=== PATIENT | male | born 1965 | race Caucasian/White ===

== ENCOUNTER 2016-12-19 09:26 | Inpatient (IN) | payer BC, OTHER ==
[2016-11-23 09:59] VITALS: BMI 28.0
--- NOTE | 2016-12-18 12:09 | HISTORY & PHYSICAL EXAMINATION ---
DATE OF ADMISSION: 12/19/2016 The patient presents to our office with a complaint of back pain, as well as numbness and tingling into the left leg. He has trialed epidural injections with very little relief. He is having a difficult time standing and walking. Denies bowel or bladder dysfunction. PAST MEDICAL HISTORY: The patient's medical history is significant for GERD, arthritis, migraines, gallbladder disease, shortness of breath. SURGICAL HISTORY: Significant for cholecystectomy. ALLERGIES: None. MEDICATIONS: Not listed. SOCIAL HISTORY: He is . Alcohol not listed. He smokes a pack a day x30 years of cigarettes. 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 FAMILY HISTORY: Significant for cancer, diabetes, hypertension, high cholesterol, stroke. REVIEW OF SYSTEMS: Significant for headache, hearing loss, difficulty walking, muscle weakness and heartburn. PHYSICAL EXAMINATION: VITAL SIGNS: 5 feet, 9, 190 pounds. HEENT: Speech appropriate. CARDIOPULMONARY: No gross abnormalities. ABDOMEN: Soft, nondistended. GENITOURINARY: Deferred. NEUROLOGIC: Cranial nerves II-XII grossly intact. MUSCULOSKELETAL: He moves easily around the room. He has weakness on the left side with a 3+/5 along the anterior tibialis. He has positive tension sign on the left. Otherwise, neurovascularly intact. ASSESSMENT: Spinal stenosis of L4-5, L5-S1 with disc deterioration of L3-4 as well. He has failed conservative therapy and may consider surgical intervention. Surgery would require lumbar decompression L4-5, L5-S1 with instrumented fusion L3-S1. Risks, benefits, pros, cons, and alternatives were outlined in detail. The patient would like to proceed with the above-mentioned surgical planning.
[2016-12-19] VITALS (7 sets, daily range): BP systolic 152–168; BP diastolic 88–99; PULSE 84–104; TEMP 36.2–36.9; O2SAT 95–99; Ht 175.3 cm; Wt 88.5 kg
[~2016-12-19] VITALS: Ht 175.3 cm; Wt 88.5 kg
--- NOTE | 2016-12-19 07:25 | History & Physical Bridge Note ---
H&P Re-Evaluation Bridge Note: I have examined the patient, reviewed the History & Physical and in the interval since the performance of the History & Physical I have noted the following changes of clinical significance: No changes noted
[~2016-12-19 09:26] MED LIST: CALC500C3 PO; CEFAZOLIN 2000 MG/60 ML D5W IV SCH; IBUP-1050 PO
[2016-12-19] MEDS ORDERED: NURSING VERBAL MED ORDER ONE ×3 (10:15→19:00)
[2016-12-19] MEDS ORDERED: FENTANYL CITRATE INJ 50 MCG/1 ML 2 ML VIAL ONE (10:30)
[2016-12-19] MEDS ORDERED: MIDAZOLAM HCL 1 MG/ML 2ML VIAL ONE (10:30)
[2016-12-19] MEDS ORDERED: FLUMAZENIL 0.1 MG/1 ML 10 ML VIAL IV PRN (11:00)
[2016-12-19] MEDS ORDERED: EpHEDrine SULFATE INJ 50 MG/ML AMP IV PRN (11:00)
[2016-12-19] MEDS ORDERED: ATROPINE SULFATE 0.1 MG/ML 5ML SYR IV PRN (11:00)
[2016-12-19] MEDS ORDERED: PHENYLEPHRINE 100MCG/ML 5ML SYR IV PRN (11:00)
[2016-12-19] MEDS ORDERED: NALOXONE HCL 0.4 MG/1 ML VIAL/CARP IV PRN ×3 (11:00→13:30)
[2016-12-19] MEDS ORDERED: ONDANSETRON INJ 2 MG/ML 2 ML VIAL IV PRN ×2 (11:00→13:30)
[2016-12-19] MEDS ORDERED: MoRPHine SULFATE 10 MG/ML CARP/VIAL IV PRN (11:00)
[2016-12-19] MEDS ORDERED: MEPERIDINE HCL 25 MG/ML CARP IV PRN (11:00)
[2016-12-19] MEDS ORDERED: LARYING-O-JET KIT (LTA) EXT ONE ×2 (11:44)
[2016-12-19] MEDS ORDERED: ONDANSETRON INJ 2 MG/ML 2 ML VIAL ONE (11:44)
[2016-12-19] MEDS ORDERED: NEOSTIGMINE METHYLSULFATE 1 MG/ML 10ML VIAL ONE (11:44)
[2016-12-19] MEDS ORDERED: LIDOCAINE HCL 2% 2 ML VIAL (20MG/ML) ONE (11:44)
[2016-12-19] MEDS ORDERED: DEXAMETHASONE SOD INJ 4 MG/ML VIAL ONE (11:44)
[2016-12-19] MEDS ORDERED: PROPOFOL IV EMULSION 10 MG/ML 20 ML VIAL IV ONE (11:44)
[2016-12-19] MEDS ORDERED: GLYCOPYRROLATE INJ 0.2 MG/ML VIAL ONE (11:44)
[2016-12-19] MEDS ORDERED: ROCURONIUM BROMIDE 10 MG/ML 5 ML VIAL ONE (11:44)
[2016-12-19] MEDS ORDERED: HYDROmorphone INJ 2 MG/ML SYR/VIAL ONE (11:45)
[2016-12-19] MEDS ORDERED: EpHEDrine SULFATE 50MG/5ML SYR ONE (11:51)
[2016-12-19] MEDS ORDERED: PHENYLEPHRINE 100MCG/ML 5ML SYR ONE (11:51)
[2016-12-19] MEDS ORDERED: BACITRACIN 50000 UNIT VIAL IR ONE (13:16)
[2016-12-19] MEDS ORDERED: BUPIVACAINE/EPINEPHRINE 0.5% MPF 1:200,000 30 ML VIAL INJ ONE (13:16)
[2016-12-19] MEDS ORDERED: FLOSEAL HEMOSTATIC MATRIX 10ML TOP ONE (13:16)
[2016-12-19] MEDS ORDERED: SODIUM CHLORIDE 0.9% 1000ML 1,000 ML IV SCH (13:26)
--- NOTE | 2016-12-19 13:26 | [facility] Operative Report ---
Operative Report Operative Date Dec 19, 2016. Pre-Operative Diagnosis Spinal stenosis of L4-5, L5-S1 with disc deterioration of L3-L4 as well. Surgeon Dr. Elkin Conway Air Quality Instrument Specialist Surgeon(s) Gayla Agudelo PA-C Estimated Blood Loss 190mL Findings stenosis Specimens None per surgeon I attest to the content of the Intraoperative Record and any orders documented therein. Any exceptions are noted below.
[2016-12-19] MEDS ORDERED: DO NOT ADMINISTER PNEUMOCOCCAL VACCINE PRN ×2 (13:30)
[2016-12-19] MEDS ORDERED: MAGNESIUM HYDROXIDE SUSP 30 ML UDC PO PRN (13:30)
[2016-12-19] MEDS ORDERED: ALUMINUM/MAGNESIUM SUSP 30 ML UDC PO PRN (13:30)
[2016-12-19] MEDS ORDERED: FAMOTIDINE 20 MG TAB PO PRN (13:30)
[2016-12-19] MEDS ORDERED: CALCIUM CARBONATE 500 MG CHEWABLE PO PRN (13:30)
[2016-12-19] MEDS ORDERED: HYDROmorphone HCL 0.5MG/ML 50 ML CASSETTE IV PRN (13:30)
[2016-12-19] MEDS ORDERED: hydrOXYzine HCL 25 MG TAB PO PRN (13:30)
[2016-12-19] MEDS ORDERED: METOCLOPRAMIDE HCL INJ 5 MG/ML 2 ML VIAL IV PRN (13:30)
[2016-12-19] MEDS ORDERED: DO NOT ADMINISTER FLU VACCINE PRN ×3 (13:30)
[2016-12-19] MEDS ORDERED: SOD PHOSPHATE/SOD BIPHOSPHATE ENEMA 132 ML BTL PR PRN (13:30)
[2016-12-19] MEDS ORDERED: LORAZEPAM 0.5 MG TAB PO PRN (13:30)
[2016-12-19] MEDS ORDERED: ACETAMINOPHEN IV 100 ML IV PRN (13:30)
[2016-12-19] MEDS ORDERED: PROMETHAZINE HCL INJ 12.5 MG in SODIUM CHLORIDE 0.9% 50ML 50 ML IV PRN (13:30)
[2016-12-19] MEDS ORDERED: LORAZEPAM INJ 0.5 MG in SYRINGE 0 ML IV PRN (13:30)
[2016-12-19] MEDS ORDERED: ACETAMINOPHEN 500 MG TAB PO PRN (13:30)
[2016-12-19] MEDS ORDERED: BISACODYL 10 MG SUPP PR PRN (13:30)
--- NOTE | 2016-12-19 13:42 | DIAGNOSTIC IMAGING REPORT ---
INTRAOPERATIVE FLUOROSCOPIC IMAGES OF THE LUMBAR SPINE CLINICAL HISTORY: L3-S1 DECOMPRESSION/FUSION/INTERBODY COMPARISON STUDY: No previous studies for comparison. Fluoroscopy time: 21 seconds. FINDINGS: 2 fluoroscopic images demonstrate an L5-S1 discectomy with interbody spacer placement. There are bilateral pedicle screws at the L3, L4, L5 and S1 levels. There are interconnecting rods. Hardware is intact. IMPRESSION: Fluoroscopic images demonstrating L5-S1 discectomy and L3-S1 bilateral pedicle screw fusion. Electronically signed by: Raji Garcia M.D. 12/19/2016 1:40 PM Dictated Date/Time: 12/19/2016 1:39 PM
[2016-12-19] MEDS ORDERED: HYDROmorphone HCL 0.5MG/ML 50 ML CASSETTE ONE (13:51)
[2016-12-19] MEDS: HYDROmorphone INJ 1 MG/ML SYR IV PRN ×4 (13:54→14:34)
--- NOTE | 2016-12-19 14:05 | OPERATIVE REPORT ---
DATE OF OPERATION: 12/19/2016 PREOPERATIVE DIAGNOSIS: Spinal stenosis. POSTOPERATIVE DIAGNOSIS: Same. PROCEDURES PERFORMED: 1. Lumbar decompression, medial facetectomy, and foraminotomy L3-L4, L4-L5, L5-S1. 2. Posterior spinal fusion L3-L4, L4-L5, L5-S1. 3. Placement posterior segmental instrumentation using Orthros rods and screws L3-L4, L4-L5, L5-S1. 4. Interbody fusion L5-S1. 5. Placement of PEEK cage 12 x 26 mm at L5-S1. 6. Placement of locally harvested morselized autograft posterior gutters. 7. Placement of Infuse collagen sponge combined with Mastergraft in the posterior gutters and Liane bone grafting interbody space. SURGEON: Dr. Elkin Conway. MANAGER SITE: Gayla Isidro PA-C. Due to the complex nature of the procedure, the entire surgery was performed with the operator assistant i cementing of LUIS Williamson.? The judicial assistant, under direct supervision, was involved in the actual performance of all aspects of the surgical procedure including hemostasis, tissue retraction and incision, instrument management, patient positioning, and wound closure. ANESTHESIA: General. DISPOSITION: The patient awakened and taken to PACU in stable condition. HISTORY OF PATIENT'S PROBLEMS: This is a 51-year-old male who presents with above-mentioned diagnosis. After failing an extensive course of nonoperative care, elected to undergo the above-mentioned procedure. Risks, benefits, pros, cons, and alternatives were outlined in detail preoperatively. DESCRIPTION OF PROCEDURE: The patient was met with preoperatively, the case discussed and all questions were addressed. At that point the patient was taken back to operative suite and after undergoing successful general intubation by the department of anesthesia was placed in prone position on Luis table atop Galdino frame. All bony prominences were well padded and the eyes were inspected to ensure there was no external pressure placed upon them. At this point, lumbar spine was prepped and draped in normal sterile fashion. Sharp dissection with the assistance of Bovie cautery performed down to and exposing the lamina and transverse processes of L2, L3, L4, L5 and sacral ala bilaterally. From a caudal to cephalad fashion, complete laminectomy of L5, L4, and L3 was performed addressing severe lateral recess foraminal stenosis particularly at the L5-S1 level. Pedicle screws then placed in L3, L4, L5 and S1 levels bilaterally with assistance of fluoroscopy and appropriate size warner provisionally placed. Through transforaminal approach on the left, a complete discectomy of L5-S1 was performed, endplates curetted to subcortical bleeding bone and a 12 x 26 mm PEEK cage filled with Liane bone grafting tapped into position. The rods were then locked into final position bilaterally and transverse processes of L3, L4, L5 and sacral ala burred to subcortical bleeding bone. Infuse collagen sponge combined with Mastergraft locally harvested morselized autograft was placed in the posterior gutters. A crosslink locked into position, 7 flat LUNA drain inserted and incision closed with 1-0 Vicryl in the fascia, 2-0 Vicryl subcutaneously, 4-0 Monocryl for final skin closure. Steri-Strips and sterile dressing placed. The patient was awakened and taken to PACU. I attest to the content of the Intraoperative Record and any orders documented therein. Any exceptio ns are noted below.
[2016-12-19] MEDS: LABETALOL HCL IV 5 MG/ML 20ML IV PRN ×3 (14:13→15:00)
[2016-12-19] MEDS ORDERED: METOPROLOL TARTRATE 1 MG/ML VIAL ONE (14:19)
--- NOTE | 2016-12-19 14:22 | Anesthesiology Progress Note ---
Anesthesia Post Op Note Date & Time Dec 19, 2016 at 14:22 Vital Signs Pain Intensity: 8 Vital Signs Past 12 Hours Date Time Temp Pulse Resp B/P Pulse Ox O2 Delivery O2 Flow Rate FiO2 12/19/16 14:11 101 14 95 12/19/16 14:11 99 14 12/19/16 14:09 178/86 12/19/16 14:06 107 17 176/93 97 12/19/16 14:06 108 17 12/19/16 14:01 105 26 12/19/16 14:01 106 26 100 12/19/16 13:58 155/96 12/19/16 13:56 105 21 12/19/16 13:56 103 21 100 12/19/16 13:53 147/95 12/19/16 13:51 106 14 12/19/16 13:51 105 14 100 12/19/16 13:48 155/104 12/19/16 13:46 112 23 99 12/19/16 13:46 115 23 12/19/16 13:43 150/88 12/19/16 13:41 96 12 100 12/19/16 13:41 96 12 12/19/16 13:41 37.2 86 14 160/93 100 Mask 10 12/19/16 09:54 36.6 84 20 168/98 97 Room Air Notes Mental Status: alert / awake / arousable, participated in evaluation Pt Amnestic to Procedure: Yes Nausea / Vomiting: adequately controlled Pain: adequately controlled Airway Patency, RR, SpO2: stable & adequate BP & HR: stable & adequate Hydration State: stable & adequate Anesthetic Complications: no major complications apparent
[2016-12-19] MEDS ORDERED: METOPROLOL TARTRATE 1 MG/ML VIAL IV STA (14:23)
--- NOTE | 2016-12-19 14:33 | Anesthesiology Progress Note ---
Anesthesia Post Op Note Date & Time Dec 19, 2016 at 14:33 Vital Signs Pain Intensity: 3 Vital Signs Past 12 Hours Date Time Temp Pulse Resp B/P Pulse Ox O2 Delivery O2 Flow Rate FiO2 12/19/16 14:25 85 160/94 12/19/16 14:23 160/94 12/19/16 14:22 79 16 12/19/16 14:22 79 16 95 12/19/16 14:17 94 22 12/19/16 14:17 93 22 95 12/19/16 14:13 167/92 12/19/16 14:12 95 16 96 12/19/16 14:12 95 16 12/19/16 14:11 101 14 95 12/19/16 14:11 99 14 12/19/16 14:09 178/86 12/19/16 14:06 107 17 176/93 97 12/19/16 14:06 108 17 12/19/16 14:01 105 26 12/19/16 14:01 106 26 100 12/19/16 13:58 155/96 12/19/16 13:56 105 21 12/19/16 13:56 103 21 100 12/19/16 13:53 147/95 12/19/16 13:51 106 14 12/19/16 13:51 105 14 100 12/19/16 13:48 155/104 12/19/16 13:46 112 23 99 12/19/16 13:46 115 23 12/19/16 13:43 150/88 12/19/16 13:41 96 12 100 12/19/16 13:41 96 12 12/19/16 13:41 37.2 86 14 160/93 100 Mask 10 12/19/16 09:54 36.6 84 20 168/98 97 Room Air Notes Mental Status: alert / awake / arousable, participated in evaluation Pt Amnestic to Procedure: Yes Nausea / Vomiting: adequately controlled Pain: adequately controlled Airway Patency, RR, SpO2: stable & adequate BP & HR: stable & adequate Hydration State: stable & adequate Anesthetic Complications: no major complications apparent
[2016-12-19] MEDS ORDERED: LABETALOL HCL IV 5 MG/ML 20ML IV ONE (16:00)
[2016-12-19] MEDS: LACTATED RINGER'S 1000ML 1,000 ML IV SCH ×2 (16:12→22:44)
[2016-12-19] MEDS ORDERED: HydrALAZINE HCL 20 MG/ML VIAL IV. PRN (19:15)
[2016-12-19] MEDS: DOCUSATE SODIUM/SENNA 50/8.6MG TAB PO SCH (19:58)
[2016-12-19] MEDS: CEFAZOLIN IV 2,000 MG in DEXTROSE 5% 50ML 50 ML IV SCH (19:58)
[2016-12-19] MEDS: DEXAMETHASONE INJ 6 MG in SYRINGE 0 ML IV SCH (19:58)
[2016-12-20] VITALS (7 sets, daily range): BP systolic 112–160; BP diastolic 67–85; PULSE 79–99; TEMP 36.6–36.7; O2SAT 93–98
[2016-12-20] MEDS: DEXAMETHASONE INJ 6 MG in SYRINGE 0 ML IV SCH ×2 (04:00→12:06)
[2016-12-20] MEDS: CEFAZOLIN IV 2,000 MG in DEXTROSE 5% 50ML 50 ML IV SCH (04:00)
[2016-12-20] MEDS: LACTATED RINGER'S 1000ML 1,000 ML IV SCH (04:49)
[2016-12-20] MEDS ORDERED: DC PCA SCH (06:00)
[2016-12-20] MEDS ORDERED: HYDROmorphone INJ 1 MG/ML SYR IV PRN (06:00)
[2016-12-20 06:57] LABS: COMPLETE YES; EOS % 0.1 %; HEMATOCRIT 37.9 % (42-52); IG% 0.3 %; LYMPH % 7.2 %; LYMPH ABS # 1.16 K/uL (1.2-3.4); MEAN CELL VOLUME 92.2 fL (80-100); MEAN CORPUSCULAR HEMOGLOBIN 31.6 pg (25-34); MEAN CORPUSCULAR HGB CONC 34.3 g/dl (32-36); MEAN PLATELET VOLUME 10.9 fL (7.4-10.4); NEUT % 84.4 %; PLATELET COUNT 203 K/uL (130-400); RED BLOOD COUNT 4.11 M/uL (4.7-6.1); WHITE BLOOD COUNT 16.05 K/uL (4.8-10.8)
[2016-12-20 07:26] LABS: CALCIUM 8.4 mg/dl (8.5-10.1); CREATININE 0.99 mg/dl (0.60-1.40); POTASSIUM 4.1 mmol/L (3.5-5.1)
[2016-12-20] MEDS: NICOTINE 21 MG/24 HR TDSY TD SCH (09:33)
[2016-12-20] MEDS ORDERED: RXC5 PO (09:55)
--- NOTE | 2016-12-20 09:56 | Discharge Instructions ---
Discharge Instructions Admission Reason for Admission: Discharge Discharge Diagnosis / Problem: stenosis Discharge Goals Goal(s): Improve function Activity Recommendations Activity Limitations: per Instructions/Follow-up section . Instructions / Follow-Up Instructions / Follow-Up ACTIVITY RECOMMENDATIONS: SELF CARE INSTRUCTIONS AFTER THORACIC/LUMBAR FUSIONS 1. You may walk to your tolerance. It is good exercise for your legs and back. Expect some back and intermittent leg aches and pains. 2. You may perform "counter-top" level activities (make a sandwich, kyung with a project, etc.). 3. No bending or lifting of more than 10 pounds or back twisting of any nature (roll like a log when turning in bed). 4. You may ride in a car for 20-30 minutes at a time. No driving until after your first visit with your doctor. 5. Frequent changes of position and restricting sitting to 30 minutes at a time will help limit the amount of back spasms and stiffness you may experience. 6. You may discontinue the use of ambulatory aids (cane, crutches, etc.) once your strength and confidence allow. 7. You may order entry administrator the shower and let water strike your incision when you arrive home at least once daily. Do not take a tub bath, sit in a hot tub or go into a swimming pool until after your first recheck in the office. SPECIAL CARE INSTRUCTIONS: VERY IMPORTANT TO READ AND REVIEW A. Your surgical incision has been closed with a cosmetic suture under the skin that will dissolve in about 6 weeks. In 14 days, you can use a pair of clean scissors and cut the suture that is left outside of the skin at the ends of your incision. 1. The small skin tapes can be removed 7 days after surgery if they have not fallen off by that point. 2. You may keep the wound open to air as much as possible to promote healing after post-op day number 5 unless told otherwise by your doctor. 3. If you think the wound looks like it is becoming infected (redness or worsening drainage) and/or you are experiencing fever, chill or worsening back pain and muscle spasms, contact the office so that we may evaluate you as soon as possible. B. Complications are uncommon, but please contact us if you have any signs or symptoms of: 1. wound infection (fever higher than 102.5 degrees F, redness, separation of wound, drainage, or increasing pain from the incision) 2. blood clots in legs (pain, swelling, redness and warmth in legs) 3. urinary tract infection (fever higher than 102.5 degrees F, burning upon urination or increased frequency of urination) 4. nerve problems (inability to walk on your toes or heels, numbness, loss of bowel or bladder control) 5. any other symptoms that concern you C. Please call the office at if you have any concerns or questions about your operation or recovery. D. No smoking! Smoking drastically decreases the chance of a solid fusion. E. Do not take any anti-inflammatory medications (Indocin, Advil, Motrin, Aspirin, Naprosyn, etc.) as these may inhibit the chance of a solid fusion. Tylenol is okay to take for pain. MANAGING PAIN AFTER SPINAL SURGERY 1. Narcotic medication is intended for short-term use and will be provided for surgical pain. Surgical pain usually lasts for a period of 4-6 weeks. Narcotic medication includes Percocet, Vicodin, Darvocet, Tylenol #3 or Lortab. 2. Longer-term pain is more appropriately treated with non-narcotic medication such as Tylenol ES. 3. Muscle spasm is not appropriately treated with narcotics. Muscle relaxers such as Soma, Flexeril or Skelaxin can be used along with Tylenol ES. 4. Remember that we all live with some "aches and pains". This is not unusual or uncommon after an injury or as we get older. a. Back pain is expected and may include muscle spasms for 4 to 6 weeks after surgery. The pain should gradually improve. If the pain worsens for no apparent reason, please contact the office. b. Intermittent leg pain may also be experienced and should not be concerned about unless it worsens for no apparent reason. If so, please contact the office. 5. We will provide appropriate medication within the normal guidelines of their prescribed use. We will also be very cautious and aware of potential abuse and extended duration of patients' medication needs. a. Pain medications are for your comfort and to assist with sleep and rest so that the tissue can heal. They are not provided in order to return to normal activity and should not be used through the day. To do so or worsening pain at night can result from ongoing tissue damage and development of tolerance to the prescribed medicine. 6. Please allow 2-3 days to process refills. Prescriptions will not be mailed but must be picked up at the office. FOLLOW UP VISIT: Keep your scheduled follow-up appointment. Any questions, please call the office at . Current Hospital Diet Patient's current hospital diet: Regular Diet Discharge Diet Recommended Diet: Regular Diet Procedures Procedures Performed: L3-S1 Decompression; Posterior Spinal Fusion, Instrumentation; Interbody Fusion with Application of Interbody Cage at L5-S1 and Bone Morphogenetic Protein with Liane Pending Studies Studies pending at discharge: no Medical Emergencies . Who to Call and When: Medical Emergencies: If at any time you feel your situation is an emergency, please call 911 immediately. . Non-Emergent Contact Non-Emergency issues call your: Primary Care Provider . "Provider Documentation" section prepared by Elkin Conway. VTE Core Measure Inpt VTE Proph given/why not?: Sachin Mo, [facility]
[2016-12-20] MEDS ORDERED: KETOROLAC TROMETHAMINE 30 MG/ML VIAL IV PRN (10:00)
--- NOTE | 2016-12-20 10:36 | Anesthesiology Progress Note ---
Anesthesia Post Op Note Date & Time Dec 20, 2016 at 10:36 Vital Signs Pain Intensity: 6.0 Vital Signs Past 12 Hours Date Time Temp Pulse Resp B/P Pulse Ox O2 Delivery O2 Flow Rate FiO2 12/20/16 09:01 94 Room Air 12/20/16 08:06 36.7 80 16 139/81 94 Room Air 12/20/16 07:30 Room Air 12/20/16 04:26 36.7 98 18 142/85 93 Room Air 12/20/16 00:22 137/79 12/19/16 22:55 36.8 104 18 161/92 98 Nasal Cannula 4.0 Notes Mental Status: alert / awake / arousable, participated in evaluation Pt Amnestic to Procedure: Yes Nausea / Vomiting: adequately controlled Pain: adequately controlled Airway Patency, RR, SpO2: stable & adequate BP & HR: stable & adequate Hydration State: stable & adequate Anesthetic Complications: no major complications apparent
[2016-12-20] MEDS ORDERED: NURSING VERBAL MED ORDER ONE (12:00)
[2016-12-20] MEDS: OXYCODONE HCL IR 5 MG TAB (IMMEDIATE RELEASE) PO PRN ×2 (12:33→16:40)
--- NOTE | 2016-12-20 12:39 | PROGRESS NOTE ---
DATE: 12/20/2016 Postop day 1. Back pain controlled. Leg pain improved. Vital signs stable. T-max 36.7. LUNA drained 120 mL. Hematocrit this a.m. is 37.9. On exam, the patient is comfortable, has good strength to testing. ASSESSMENT: Status post lumbar decompression and fusion. PLAN: At this time, will continue physical therapy, anticipate possible home tomorrow.
[2016-12-20] MEDS: DOCUSATE SODIUM/SENNA 50/8.6MG TAB PO SCH (21:30)
[2016-12-21] VITALS: O2SAT 94
[2016-12-21] MEDS ORDERED: POLYETHYLENE (MIRALAX) 17 GM PACK PO SCH (06:00)
[2016-12-21 06:30] VITALS: BP 153/84; PULSE 93; TEMP 36.8; O2SAT 97
[2016-12-21] MEDS: NICOTINE 21 MG/24 HR TDSY TD SCH (07:44)
[2016-12-21 09:10] VITALS: BP 153/84; PULSE 93; TEMP 36.8; O2SAT 97
[2016-12-21] MEDS: OXYCODONE HCL IR 5 MG TAB (IMMEDIATE RELEASE) PO PRN (09:18)
--- NOTE | 2016-12-21 14:19 | DISCHARGE SUMMARY ---
PRINCIPAL DIAGNOSIS: Spinal stenosis. HOSPITAL COURSE FOLLOWS: On 12/19/2016 the patient underwent multilevel lumbar decompression and fusion, tolerated this well and taken to the orthopedic floor postoperatively. Postop day #1, he was up and ambulatory progressing appropriately. Progressed to postoperative day #2. Subsequently discharged home. Discharge orders and instructions can be found on the chart for further review.
== END 2016-12-21 10:02 | disposition home health service (06) | DRG 460 ==
LOC: ENRESERVTM → ENRESERVDT → C.ACU 09:26 → C.3E 11:00
PROVIDERS: ADMIT Orthopaedic Surgery Orthopaedic Surgery of the Spine; ATTEND Orthopaedic Surgery Orthopaedic Surgery of the Spine
PROC: 3E0U0GB Introduction of Recombinant Bone Morphogenetic Protein into Joints, Open Approach (ICD-10-PCS; principal; 2016-12-19 11:40)
PROC: 0ST40ZZ Resection of Lumbosacral Disc, Open Approach (ICD-10-PCS; principal; 2016-12-19 11:40)
PROC: 0SG1071 Fusion of 2 or more Lumbar Vertebral Joints with Autologous Tissue Substitute, Posterior Approach, Posterior Column, Open Approach (ICD-10-PCS; principal; 2016-12-19 11:40)
PROC: 0SG30AJ Fusion of Lumbosacral Joint with Interbody Fusion Device, Posterior Approach, Anterior Column, Open Approach (ICD-10-PCS; principal; 2016-12-19 11:40)
PROC: 0SG3071 Fusion of Lumbosacral Joint with Autologous Tissue Substitute, Posterior Approach, Posterior Column, Open Approach (ICD-10-PCS; principal; 2016-12-19 11:40)
DX: M48.06 Spinal stenosis, lumbar region (principal); M48.07 Spinal stenosis, lumbosacral region; M51.36 Other intervertebral disc degeneration, lumbar region; F17.210 Nicotine dependence, cigarettes, uncomplicated; M19.90 Unspecified osteoarthritis, unspecified site

== ENCOUNTER 2018-01-21 05:28 | Day surgery (SDC) | payer OTHER ==
--- NOTE | 2018-01-08 14:07 | PAT Medication Instructions ---
Service Date Jan 08, 2018. Current Home Medication List Calcium Carbonate (Tums), 2 TAB PO PRN Tramadol (Ultram), 50 MG PO Q6H Medication Instructions For Your Scheduled Surgery - Hold the following medications the morning of surgery: Calcium Carbonate (Tums), 2 TAB PO PRN - Take the following medications the morning of surgery with a sip of water: Tramadol (Ultram), 50 MG PO Q6H (if needed, can be taken up to four hours before surgery) - Take the following medications as scheduled the night before surgery: Calcium Carbonate (Tums), 2 TAB PO PRN If you have any questions please call us at [phone] or [phone] or [phone]
[2018-01-08 14:40] LABS: BASO % 0.5 %; BASO ABS # 0.03 K/uL (0-0.2); EOS % 2.2 %; EOS ABS # 0.14 K/uL (0-0.5); HEMATOCRIT 44.7 % (42-52); HEMOGLOBIN 16.3 g/dL (14.0-18.0); IG# 0.01 K/uL (0.00-0.02); LYMPH % 47.4 %; LYMPH ABS # 2.96 K/uL (1.2-3.4); MEAN CELL VOLUME 91.4 fL (80-100); MEAN CORPUSCULAR HEMOGLOBIN 33.3 pg (25-34); MEAN CORPUSCULAR HGB CONC 36.5 g/dl (32-36); MEAN PLATELET VOLUME 10.9 fL (7.4-10.4); MONO % 9.1 %; MONO ABS # 0.57 K/uL (0.11-0.59); NEUT % 40.6 %; NEUT ABS # 2.53 K/uL (1.4-6.5); PLATELET COUNT 169 K/uL (130-400); RED CELL DISTRIBUTION WIDTH CV 13.7 % (11.5-14.5); RED CELL DISTRIBUTION WIDTH SD 45.6 fL (36.4-46.3); WHITE BLOOD COUNT 6.24 K/uL (4.8-10.8)
--- NOTE | 2018-01-08 15:25 | DIAGNOSTIC IMAGING REPORT ---
CHEST 2 VIEWS ROUTINE CLINICAL HISTORY: 52 years-old Male presenting with lumbar postlaminectomy syndrome, preoperative assessment. TECHNIQUE: PA and lateral views of the chest were obtained. COMPARISON: None. FINDINGS: Atherosclerosis of the aortic arch. Cardiac silhouette normal in size. Mild bronchial wall thickening may be present. Lungs and pleural spaces otherwise clear. Degenerative changes of the thoracic spine. Upper abdomen normal. IMPRESSION: 1. Mild bronchial wall thickening could suggest bronchitis or congestive change. Otherwise no acute cardiopulmonary disease. Electronically signed by: Paulino Mcdaniels M.D. 01/08/2018 3:24 PM Dictated Date/Time: 01/08/2018 3:23 PM
[~2018-01-21] VITALS: Ht 175.3 cm; Wt 92.4 kg
[~2018-01-21 05:28] MED LIST changes: -CEFAZOLIN 2000 MG/60 ML D5W IV SCH; -IBUP-1050 PO; +TRAM-10 PO
[2018-01-21 05:42] VITALS: BP 153/91; PULSE 88; TEMP 36.6; O2SAT 97; Ht 175.3 cm; Wt 92.4 kg
[2018-01-21] MEDS ORDERED: LACTATED RINGER'S 1000ML 1,000 ML IV SCH (06:00)
[2018-01-21] MEDS ORDERED: CEFAZOLIN 2000MG IV PUSH 15 ML IV SCH (06:00)
[2018-01-21] MEDS ORDERED: MIDAZOLAM HCL 1 MG/ML 2ML VIAL ONE (06:43)
[2018-01-21] MEDS ORDERED: FENTANYL CITRATE INJ 50 MCG/1 ML 2 ML VIAL ONE ×2 (06:43→07:47)
[2018-01-21] MEDS: BACITRACIN 50000 UNIT VIAL ONE (06:56)
[2018-01-21] MEDS ORDERED: BUPIVACAINE/EPINEPHRINE 0.5% MPF 1:200,000 30 ML VIAL ONE (06:56)
--- NOTE | 2018-01-21 07:31 | History and Physical ---
History & Physical Date Jan 21, 2018. Chief Complaint Chronic back and leg pain History of Present Illness The patient is a 52 year old male with complaints of chronic back and leg pain Past Medical/Surgical History Medical Problems: (1) Lumbar stenosis with neurogenic claudication Additional History Hepatic Disease: No Endocrine Disorder: No Kidney Disease: No Hypertension: No Heart Disease: No Bleeding Tendencies: No Infectious Diseases: No Allergies Coded Allergies: Levofloxacin (Verified Allergy, Severe, "throat swelling", 01/21/18) Blueberry (Verified Allergy, Unknown, THROAT SWELLS, 01/21/18) Home Medications Scheduled Calcium Carbonate (Tums), 2 TAB PO PRN Tramadol (Ultram), 50 MG PO Q6H Physical Examination Skin: warm/dry, no rash Eyes: normal inspection, EOMI, sclerae normal ENT: normal ENT inspection, pharynx normal Head: normocephalic, atraumatic Neck: supple, no adenopathy, trachea midline Respiratory/Chest: lungs clear, normal breath sounds, no respiratory distress Cardiovascular: regular rate, rhythm, no edema, no murmur Abdomen / GI: normal bowel sounds, non tender Back: normal inspection Extremities: normal inspection, normal range of motion Neurologic/Psych: no motor/sensory deficits, alert, normal reflexes, oriented x 3 Diagnosis Chronic back and leg pain Plan of Treatment Dorsal column stimulator SCS trial
[2018-01-21] MEDS ORDERED: ONDANSETRON INJ 2 MG/ML 2 ML VIAL ONE (08:30)
[2018-01-21] MEDS ORDERED: HYDROmorphone INJ 2 MG/ML SYR/VIAL ONE (08:30)
[2018-01-21] MEDS ORDERED: ESMOLOL HCL 10 MG/ML 10 ML VIAL ONE ×2 (08:30→08:33)
[2018-01-21] MEDS ORDERED: LIDOCAINE HCL 2% 2 ML VIAL (20MG/ML) ONE (08:30)
[2018-01-21] MEDS ORDERED: ROCURONIUM BROMIDE 10 MG/ML 5 ML VIAL IV ONE (08:30)
[2018-01-21] MEDS ORDERED: PROPOFOL IV EMULSION 10 MG/ML 20 ML VIAL IV ONE (08:30)
[2018-01-21] MEDS ORDERED: DEXAMETHASONE SOD INJ 4 MG/ML VIAL ONE (08:30)
[2018-01-21] MEDS ORDERED: METOPROLOL TARTRATE 1 MG/ML VIAL ONE ×2 (08:30→08:33)
[2018-01-21] MEDS ORDERED: KETOROLAC TROMETHAMINE 30 MG/ML VIAL ONE (08:33)
[2018-01-21] MEDS ORDERED: NEOSTIGMINE METHYLSULFATE 1 MG/ML 10ML VIAL ONE (08:33)
[2018-01-21] MEDS ORDERED: GLYCOPYRROLATE INJ 0.2 MG/ML VIAL ONE (08:33)
[2018-01-21] MEDS ORDERED: OXYC-57 PO (08:38)
--- NOTE | 2018-01-21 08:38 | [facility] Operative Report ---
Operative Report Operative Date Jan 21, 2018. Pre-Operative Diagnosis Chronic back and leg pain Post-Operative Diagnosis Chronic back and leg pain Procedure(s) Performed #1 T10 laminotomy. #2 placement of 16-lead dorsal column stimulator paddle with temporary leads attached. Surgeon Dr. Conway Data Management Surgeon(s) Yadira Martin PA-C Estimated Blood Loss 10 cc Findings Findings consistent with diagnosis Specimens none per surgeon Anesthesia Type General Description of Procedure Patient was met with preoperatively case discussed all questions addressed. After informed consent obtained patient was taken to the operative suite underwent intubation and placed in a prone position on the Luis table on top of the Galdino frame. All bony prominences were well-padded the eyes inspected to ensure no external pressure placed upon them. This point the thoracal lumbar spine was prepped and draped in the normal sterile fashion. Sharp dissection with the assistance of Procardia was performed onto an exposing the interlaminar space at T10-T11. Self-retaining retractors placed. Then created a midline T10 laminotomy large enough to place a 16-lead dorsal column stimulator paddle this was placed verified with fluoroscopy. Leads were then sewn into position. Temporary leads were then attached. These were taken out to the right flank attached to the temporary stimulator box. The device was tested for efficacy. Incision was then irrigated and closed with subcutaneous Vicryl and 4-0 Monocryl for final skin closure. Steri-Strips sterile dressings placed. Patient with continued PACU stable condition. Please note Aissatou Martin was present at the entire procedure involved in patient positioning complex portions of the surgery and final skin closure. I attest to the content of the Intraoperative Record and any orders documented therein. Any exceptions are noted below.
--- NOTE | 2018-01-21 08:39 | Discharge Instructions ---
Discharge Instructions Date of Service Jan 21, 2018. Admission Reason for Admission: Lumbar Post-Laminectomy Syndrome Discharge Discharge Diagnosis / Problem: chronic back and leg pain Discharge Goals Goal(s): Improve function Activity Recommendations Activity Limitations: per Instructions/Follow-up section . Instructions / Follow-Up Instructions / Follow-Up ACTIVITY RECOMMENDATIONS: SELF CARE INSTRUCTIONS AFTER A LAMINECTOMY 1. No prolonged sitting (less than 30 minutes for the first 3 weeks after surgery). 2. No bending, lifting more than 5 pounds, or twisting (roll like a log when turning in bed). 3. You may shower 3 days after surgery if no drainage from wound. Thoroughly dry wound. Do not soak in the tub. 4. Please walk as much as you can for exercise. Gradually increase the distance that you walk as your endurance increases. 5. You may drive in 7-10 days if you are comfortable and no longer requiring pain medications. SPECIAL CARE INSTRUCTIONS: VERY IMPORTANT TO READ AND REVIEW A. Your surgical incision has been closed with a cosmetic suture under the skin that will dissolve in about 6 weeks. In 14 days, you can use a pair of clean scissors and cut the suture that is left outside of the skin at the ends of your incision. B. Complications are uncommon, but please contact us if you have any signs or symptoms of: 1. wound infection (fever higher than 102.5 degrees F, redness, separation of wound, drainage, or increasing pain from the incision) 2. blood clots in legs (pain, swelling, redness and warmth in legs) 3. urinary tract infection (fever higher than 102.5 degrees, burning upon urination or increased frequency of urination) 4. nerve problems (inability to walk on your toes or heels, numbness, loss of bowel or bladder control) 5. any other symptoms that concern you. C. Please call the office at if you have any concerns or questions about your operation or recovery. MANAGING PAIN AFTER SPINAL SURGERY 1. Narcotic medication is intended for short-term use and will be provided for surgical pain. Surgical pain usually lasts for a period of 4-6 weeks. Narcotic medication includes Percocet, Vicodin, Darvocet, Tylenol #3 or Lortab. 2. Longer-term pain is more appropriately treated with non-narcotic medication such as Tylenol ES. 3. Muscle spasm is not appropriately treated with narcotics. Muscle relaxers such as Soma, Flexeril or Skelaxin can be used along with Tylenol ES. 4. Remember that we all live with some "aches and pains". This is not unusual or uncommon after an injury or as we get older. 5. We will provide appropriate medication within the normal guidelines of their prescribed use. We will also be very cautious and aware of potential abuse and extended duration of patients' medication needs. 6. Please allow 2-3 days to process refills. Prescriptions will not be mailed but must be picked up at the office. FOLLOW UP VISIT: Keep your scheduled follow-up appointment. Any questions, please call the office at . Current Hospital Diet Patient's current hospital diet: Discharge Diet Recommended Diet: Regular Diet Procedures Procedures Performed: #1 T10 laminotomy. #2 placement of 16-lead dorsal column stimulator paddle with temporary leads attached. Pending Studies Studies pending at discharge: no Medical Emergencies . Who to Call and When: Medical Emergencies: If at any time you feel your situation is an emergency, please call 911 immediately. . Non-Emergent Contact Non-Emergency issues call your: Primary Care Provider . "Provider Documentation" section prepared by Elkin Conway. . VTE Core Measure Inpt VTE Proph given/why not?: Sachin Mo, SCD's
[2018-01-21] MEDS ORDERED: HYDROmorphone INJ 1 MG/ML SYR IV PRN ×2 (08:45→09:15)
[2018-01-21] MEDS ORDERED: OXYCODONE/ACETAMINOPHEN 5-325 TAB PO PRN (08:45)
[2018-01-21] MEDS ORDERED: KETOROLAC TROMETHAMINE 30 MG/ML VIAL IV. PRN (08:45)
[2018-01-21] MEDS ORDERED: ACETAMINOPHEN 325 MG TAB PO PRN (08:45)
[2018-01-21] MEDS ORDERED: PROMETHAZINE HCL INJ 12.5 MG in SODIUM CHLORIDE 0.9% 50ML 50 ML IV PRN (09:15)
[2018-01-21] MEDS ORDERED: EpHEDrine SULFATE INJ 50 MG/ML AMP IV PRN (09:15)
[2018-01-21] MEDS ORDERED: ONDANSETRON INJ 2 MG/ML 2 ML VIAL IV PRN (09:15)
[2018-01-21] MEDS ORDERED: ATROPINE SULFATE 0.1 MG/ML 5ML SYR IV PRN (09:15)
[2018-01-21] MEDS ORDERED: FENTANYL CITRATE INJ 50 MCG/1 ML 2 ML VIAL IV PRN (09:15)
--- NOTE | 2018-01-21 09:17 | Anesthesiology Progress Note ---
Anesthesia Post Op Note Date & Time Jan 21, 2018 at 09:16 Vital Signs Pain Intensity: 0 Vital Signs Past 12 Hours Date Time Temp Pulse Resp B/P (MAP) Pulse Ox O2 Delivery O2 Flow Rate FiO2 01/21/18 09:10 89 18 152/91 97 Nasal Cannula 01/21/18 09:00 89 18 151/88 100 Oxymask 5 01/21/18 08:52 36.3 76 18 144/84 100 Oxymask 10 01/21/18 05:42 36.6 88 20 153/91 (111) 97 Room Air Notes Mental Status: alert / awake / arousable, participated in evaluation Pt Amnestic to Procedure: Yes Nausea / Vomiting: adequately controlled Pain: adequately controlled Airway Patency, RR, SpO2: stable & adequate BP & HR: stable & adequate Hydration State: stable & adequate Anesthetic Complications: no major complications apparent
--- NOTE | 2018-01-21 09:27 | DIAGNOSTIC IMAGING REPORT ---
SPINE ONE VIEW, ANY LEVEL HISTORY: 52 years-old Male DORSAL COLUMN STIM TRIAL status post placement of a spinal stimulator device COMPARISON: Lumbar spine spot fluoroscopic images 12/19/2016 TECHNIQUE: Single spot fluoroscopic image of the spine was obtained utilizing 6.6 seconds fluoroscopy time FINDINGS: Single image demonstrates two spinal stimulator leads overlying the mid to lower thoracic spine, exact level unknown secondary to single collimated image. Orthopedic hardware is noted along the spine. The leads appear intact. IMPRESSION: Status post placement of a spinal stimulator device. The above report was generated using voice recognition software. It may contain grammatical, syntax or spelling errors. Electronically signed by: Matthew Amin M.D. 01/21/2018 9:25 AM Dictated Date/Time: 01/21/2018 9:24 AM
[2018-01-21 09:33] VITALS: BP 141/83; PULSE 86; TEMP 37.2; O2SAT 92
[2018-01-21 10:03] VITALS: BP 156/93; PULSE 89; TEMP 36.9; O2SAT 93
== END 2018-01-21 10:03 | disposition home or self-care (01) ==
LOC: C.ACU 05:28
PROVIDERS: ATTEND Orthopaedic Surgery Orthopaedic Surgery of the Spine
DX: M96.1 Postlaminectomy syndrome, not elsewhere classified (principal); K21.9 Gastro-esophageal reflux disease without esophagitis; I10 Essential (primary) hypertension; F17.200 Nicotine dependence, unspecified, uncomplicated

== ENCOUNTER → 2018-02-07 | Day surgery (SDC) | payer OTHER ==
[~2018-02-07] VITALS: Ht 175.3 cm; Wt 92.4 kg
[~2018-02-07] MED LIST changes: +ACETAMINOPHEN 325 MG TAB PO PRN; +ACETAMINOPHEN 500 MG TAB PO SCH; +ATROPINE SULFATE 0.1 MG/ML 5ML SYR IV PRN; +BACITRACIN 50000 UNIT VIAL ONE; +BUPIVACAINE/EPINEPHRINE 0.5% MPF 1:200,000 30 ML VIAL ONE; +CEFAZOLIN 2000MG IV PUSH 15 ML IV SCH; +CeleBREX 200 MG CAP PO SCH; +DEXAMETHASONE SOD INJ 4 MG/ML VIAL ONE; +ESMOLOL HCL 10 MG/ML 10 ML VIAL ONE; +EpHEDrine SULFATE INJ 50 MG/ML AMP IV PRN; +FENTANYL CITRATE INJ 50 MCG/1 ML 2 ML VIAL IV PRN; +FENTANYL CITRATE INJ 50 MCG/1 ML 2 ML VIAL ONE; +FLOSEAL HEMOSTATIC MATRIX 5ML TOP ONE; +GABAPENTIN 300 MG CAP PO SCH; +GLYCOPYRROLATE INJ 0.2 MG/ML VIAL ONE; +HYDROmorphone INJ 1 MG/ML SYR IV PRN; +HYDROmorphone INJ 2 MG/ML SYR/VIAL ONE; +KETOROLAC TROMETHAMINE 30 MG/ML VIAL IV. PRN; +KETOROLAC TROMETHAMINE 30 MG/ML VIAL ONE; +LABETALOL HCL IV 5 MG/ML 20ML IV ONE; +LACTATED RINGER'S 1000ML 1,000 ML IV SCH; +LIDOCAINE HCL 2% 2 ML VIAL (20MG/ML) ONE; +METOPROLOL TARTRATE 1 MG/ML VIAL ONE; +MIDAZOLAM HCL 1 MG/ML 2ML VIAL ONE; +NEOSTIGMINE METHYLSULFATE 1 MG/ML 10ML VIAL ONE; +NURSING VERBAL MED ORDER ONE; +ONDANSETRON INJ 2 MG/ML 2 ML VIAL IV PRN; +ONDANSETRON INJ 2 MG/ML 2 ML VIAL ONE; +OXYC-57 PO; +OXYCODONE HCL IR 5 MG TAB (IMMEDIATE RELEASE) PO PRN; +PROPOFOL IV EMULSION 10 MG/ML 20 ML VIAL IV ONE; +ROCURONIUM BROMIDE 10 MG/ML 5 ML VIAL IV ONE; -TRAM-10 PO
[2018-02-07 10:13] VITALS: BP 150/92; PULSE 99; TEMP 36.6; O2SAT 97; Ht 175.3 cm; Wt 92.4 kg
--- NOTE | 2018-02-07 13:01 | History and Physical ---
History & Physical Date Feb 07, 2018. Chief Complaint Chronic back and leg pain History of Present Illness The patient is a 52 year old male with complaints of chronic back and leg pain Past Medical/Surgical History Medical Problems: (1) Lumbar stenosis with neurogenic claudication Additional History Hepatic Disease: No Endocrine Disorder: No Kidney Disease: No Hypertension: No Heart Disease: No Bleeding Tendencies: No Infectious Diseases: No Allergies Coded Allergies: Levofloxacin (Verified Allergy, Severe, "throat swelling", 02/07/18) Blueberry (Verified Allergy, Unknown, THROAT SWELLS, 02/07/18) Home Medications Scheduled Calcium Carbonate (Tums), 2 TAB PO PRN Scheduled PRN Oxycodone/Acetaminophen 5MG/325MG (Percocet 5MG/325MG), 1 TABLET PO Q4H PRN for Pain Physical Examination Skin: warm/dry, no rash Eyes: normal inspection, EOMI, sclerae normal ENT: normal ENT inspection, pharynx normal Head: normocephalic, atraumatic Neck: supple, no adenopathy, trachea midline Respiratory/Chest: lungs clear, normal breath sounds, no respiratory distress Cardiovascular: regular rate, rhythm, no edema, no murmur Abdomen / GI: normal bowel sounds, non tender Back: normal inspection Extremities: normal inspection, normal range of motion Neurologic/Psych: no motor/sensory deficits, alert, normal reflexes, oriented x 3 Diagnosis Chronic back and leg pain Plan of Treatment Spinal cord stimulator implant
--- NOTE | 2018-02-07 14:03 | [facility] Operative Report ---
Operative Report Operative Date Feb 07, 2018. Pre-Operative Diagnosis Chronic back and leg pain Post-Operative Diagnosis same as preop Procedure(s) Performed 1. Removal of temporary spinal cord stimulator leads. #2 implantation of spinal cord stim later battery Surgeon Dr. Conway Dba Surgeon(s) Popeye Villalobos PA-C Estimated Blood Loss 20 ML Findings Findings consistent with preoperative diagnosis Specimens none Anesthesia Type General Description of Procedure Patient was met with preoperatively case discussed all questions addressed. After informed consent obtained patient was taken to the operative suite underwent intubation and placed in a prone position the Luis table on top of the Galdino frame. All bony prominences were well-padded the eye was inspected to ensure no external pressure placed upon them. This point the thoracolumbar spine was prepped and draped in a sterile fashion. Utilizing the previous T10 laminotomy incision site sharp dissection performed down to and exposing exposing the buried spinal cord stimulator lead wires and temporary lead attachments. These were detached and removed. I then created a pocket for the battery along the left flank. The leads were brought to the pocket by way of a trocar and attached to the battery. It was tested for efficacy and placed within the pocket. The incisions were then copiously irrigated and closed with subcutaneous Vicryl 4-0 Monocryl for final skin closure. Steri-Strips and sterile dressings placed. Patient will continue to PACU stable condition. Please note Darío Villalobos was present throughout the entire procedure involved in patient positioning complex portions of the surgery and fashion closure. I attest to the content of the Intraoperative Record and any orders documented therein. Any exceptions are noted below.
--- NOTE | 2018-02-07 14:05 | Discharge Instructions ---
Discharge Instructions Date of Service Feb 07, 2018. Admission Reason for Admission: Lumbar Post-Laminectomy Syndrome Discharge Discharge Diagnosis / Problem: Chronic back and leg pain Discharge Goals Goal(s): Decrease discomfort Activity Recommendations Activity Limitations: per Instructions/Follow-up section . Instructions / Follow-Up Instructions / Follow-Up ACTIVITY RECOMMENDATIONS: SELF CARE INSTRUCTIONS AFTER A LAMINECTOMY 1. No prolonged sitting (less than 30 minutes for the first 3 weeks after surgery). 2. No bending, lifting more than 5 pounds, or twisting (roll like a log when turning in bed). 3. You may shower 3 days after surgery if no drainage from wound. Thoroughly dry wound. Do not soak in the tub. 4. Please walk as much as you can for exercise. Gradually increase the distance that you walk as your endurance increases. 5. You may drive in 7-10 days if you are comfortable and no longer requiring pain medications. SPECIAL CARE INSTRUCTIONS: VERY IMPORTANT TO READ AND REVIEW A. Your surgical incision has been closed with a cosmetic suture under the skin that will dissolve in about 6 weeks. In 14 days, you can use a pair of clean scissors and cut the suture that is left outside of the skin at the ends of your incision. B. Complications are uncommon, but please contact us if you have any signs or symptoms of: 1. wound infection (fever higher than 102.5 degrees F, redness, separation of wound, drainage, or increasing pain from the incision) 2. blood clots in legs (pain, swelling, redness and warmth in legs) 3. urinary tract infection (fever higher than 102.5 degrees, burning upon urination or increased frequency of urination) 4. nerve problems (inability to walk on your toes or heels, numbness, loss of bowel or bladder control) 5. any other symptoms that concern you. C. Please call the office at if you have any concerns or questions about your operation or recovery. MANAGING PAIN AFTER SPINAL SURGERY 1. Narcotic medication is intended for short-term use and will be provided for surgical pain. Surgical pain usually lasts for a period of 4-6 weeks. Narcotic medication includes Percocet, Vicodin, Darvocet, Tylenol #3 or Lortab. 2. Longer-term pain is more appropriately treated with non-narcotic medication such as Tylenol ES. 3. Muscle spasm is not appropriately treated with narcotics. Muscle relaxers such as Soma, Flexeril or Skelaxin can be used along with Tylenol ES. 4. Remember that we all live with some "aches and pains". This is not unusual or uncommon after an injury or as we get older. 5. We will provide appropriate medication within the normal guidelines of their prescribed use. We will also be very cautious and aware of potential abuse and extended duration of patients' medication needs. 6. Please allow 2-3 days to process refills. Prescriptions will not be mailed but must be picked up at the office. FOLLOW UP VISIT: Keep your scheduled follow-up appointment. Any questions, please call the office at . Current Hospital Diet Patient's current hospital diet: Discharge Diet Recommended Diet: Regular Diet Procedures Procedures Performed: 1. Removal of temporary spinal cord stimulator leads. #2 implantation of spinal cord stim later battery Pending Studies Studies pending at discharge: no Medical Emergencies . Who to Call and When: Medical Emergencies: If at any time you feel your situation is an emergency, please call 911 immediately. . Non-Emergent Contact Non-Emergency issues call your: Primary Care Provider . "Provider Documentation" section prepared by Elkin Conway. .
[2018-02-07 16:00] VITALS: BP 147/88; PULSE 95; TEMP 36.8; O2SAT 92
--- NOTE | 2018-02-07 16:07 | Anesthesiology Progress Note ---
Anesthesia Post Op Note Date & Time Feb 07, 2018 at 15:11 Vital Signs Pain Intensity: 0 Vital Signs Past 12 Hours Date Time Temp Pulse Resp B/P (MAP) Pulse Ox O2 Delivery O2 Flow Rate FiO2 02/07/18 15:00 96 16 152/95 92 Nasal Cannula 2 02/07/18 14:50 95 25 170/99 95 Oxymask 10 02/07/18 14:40 97 18 152/112 93 Oxymask 10 02/07/18 14:30 36.3 95 17 114/94 93 Oxymask 10 02/07/18 10:13 36.6 99 18 150/92 (111) 97 Room Air Notes Mental Status: alert / awake / arousable, participated in evaluation Pt Amnestic to Procedure: Yes Nausea / Vomiting: adequately controlled Pain: adequately controlled Airway Patency, RR, SpO2: stable & adequate BP & HR: stable & adequate Hydration State: stable & adequate Anesthetic Complications: no major complications apparent
== END | disposition home or self-care (01) ==
LOC: C.ACU 09:55
PROVIDERS: ATTEND Orthopaedic Surgery Orthopaedic Surgery of the Spine
DX: M96.1 Postlaminectomy syndrome, not elsewhere classified (principal); M48.062 Spinal stenosis, lumbar region with neurogenic claudication; K21.9 Gastro-esophageal reflux disease without esophagitis; Z88.1 Allergy status to other antibiotic agents; Z91.018 Allergy to other foods

== ENCOUNTER 2018-03-10 11:27 | Emergency (ER) | payer OTHER ==
[~2018-03-10] VITALS: Ht 175.3 cm; Wt 89.7 kg
[~2018-03-10 11:27] MED LIST changes: -ACETAMINOPHEN 325 MG TAB PO PRN; -ACETAMINOPHEN 500 MG TAB PO SCH; -ATROPINE SULFATE 0.1 MG/ML 5ML SYR IV PRN; -BACITRACIN 50000 UNIT VIAL ONE; -BUPIVACAINE/EPINEPHRINE 0.5% MPF 1:200,000 30 ML VIAL ONE; -CEFAZOLIN 2000MG IV PUSH 15 ML IV SCH; -CeleBREX 200 MG CAP PO SCH; -DEXAMETHASONE SOD INJ 4 MG/ML VIAL ONE; -ESMOLOL HCL 10 MG/ML 10 ML VIAL ONE; -EpHEDrine SULFATE INJ 50 MG/ML AMP IV PRN; -FENTANYL CITRATE INJ 50 MCG/1 ML 2 ML VIAL IV PRN; -FENTANYL CITRATE INJ 50 MCG/1 ML 2 ML VIAL ONE; -FLOSEAL HEMOSTATIC MATRIX 5ML TOP ONE; -GABAPENTIN 300 MG CAP PO SCH; -GLYCOPYRROLATE INJ 0.2 MG/ML VIAL ONE; -HYDROmorphone INJ 1 MG/ML SYR IV PRN; -HYDROmorphone INJ 2 MG/ML SYR/VIAL ONE; -KETOROLAC TROMETHAMINE 30 MG/ML VIAL IV. PRN; -KETOROLAC TROMETHAMINE 30 MG/ML VIAL ONE; -LABETALOL HCL IV 5 MG/ML 20ML IV ONE; -LACTATED RINGER'S 1000ML 1,000 ML IV SCH; -LIDOCAINE HCL 2% 2 ML VIAL (20MG/ML) ONE; -METOPROLOL TARTRATE 1 MG/ML VIAL ONE; -MIDAZOLAM HCL 1 MG/ML 2ML VIAL ONE; -NEOSTIGMINE METHYLSULFATE 1 MG/ML 10ML VIAL ONE; -NURSING VERBAL MED ORDER ONE; -ONDANSETRON INJ 2 MG/ML 2 ML VIAL IV PRN; -ONDANSETRON INJ 2 MG/ML 2 ML VIAL ONE; -OXYCODONE HCL IR 5 MG TAB (IMMEDIATE RELEASE) PO PRN; -PROPOFOL IV EMULSION 10 MG/ML 20 ML VIAL IV ONE; -ROCURONIUM BROMIDE 10 MG/ML 5 ML VIAL IV ONE
[2018-03-10 11:31] VITALS: TEMP 36.6; Ht 175.3 cm; Wt 89.7 kg
[2018-03-10] MEDS ORDERED: CALC500C3 PO (12:11)
[2018-03-10] MEDS ORDERED: SODIUM CHLORIDE 0.9% 1000ML 1,000 ML IV STA (12:34)
[2018-03-10] MEDS ORDERED: DiphenhydrAMINE HCL 50 MG/ML VIAL IV STA (12:34)
[2018-03-10] MEDS ORDERED: KETOROLAC TROMETHAMINE 30 MG/ML VIAL IV STA (12:34)
[2018-03-10] MEDS ORDERED: MAGNESIUM SULFATE 1GM / D5W 1 GM BAG IV STA (12:34)
[2018-03-10] MEDS ORDERED: PROCHLORPERAZINE 5 MG/ML 2 ML VIAL IV STA (12:34)
[2018-03-10] MEDS ORDERED: VERAPAMIL HCL 40 MG TAB PO STA (12:38)
--- NOTE | 2018-03-10 12:39 | EMERGENCY ROOM VISIT NOTE ---
History Report prepared by Tia: Percy Tian Under the Supervision of: Dr. Sunday Schafer M.D. First contact with patient: 12:24 Chief Complaint: HEADACHE Stated Complaint: LEFT SIDED HEAD PAIN BAD History of Present Illness The patient is a 52 year old male who presents to the Emergency Room with complaints of a waxing and waning headache that he has been experiencing for the past couple of weeks. The patient states that this is the 5th time he has visited with a physician about his current symptoms. The patient states that the pain starts as a "burning" in his throat and radiates up into his nose and goes around his eyes and all the way around his head. He notes that when the headache pain onsets it is severe. The patient was placed on Augmentin and Oxycodone on his last visit, and had a CT with contrast done by the [facility]. The patient is a smoker, and smokes 1 pack per day. Source of History: patient Onset: Past couple of weeks Position: head Symptom Intensity: severe Quality: burning (in his throat) Timing: other (waxing and waning) Associated Symptoms: + sorethroat Review of Systems See HPI for pertinent positives & negatives. A total of 10 systems reviewed and were otherwise negative. Past Medical & Surgical Medical Problems: (1) Lumbar stenosis with neurogenic claudication Family History Cancer Gallbladder disease Hypertension Kidney disease Kidney stones Social History Smoking Status: Current Every Day Smoker Marital Status: Housing Status: lives with significant other Occupation Status: unemployed Current/Historical Medications Scheduled Carbamazepine (Tegretol), 100 MG PO BID Doxycycline Monohydrate (Monodox), 100 MG PO BID Scheduled PRN Calcium Carbonate (Tums), 1,000 MG PO UD PRN for GI Upset Allergies Coded Allergies: Levofloxacin (Verified Allergy, Severe, "throat swelling", 03/10/18) Blueberry (Verified Allergy, Unknown, THROAT SWELLS, 03/10/18) Physical Exam Vital Signs Date Time Temp Pulse Resp B/P (MAP) Pulse Ox O2 Delivery O2 Flow Rate FiO2 03/10/18 17:04 84 16 173/93 98 Room Air 03/10/18 14:36 75 18 175/96 97 Room Air 03/10/18 13:12 88 03/10/18 11:31 36.6 94 16 163/100 95 Room Air Physical Exam GENERAL: Awake, alert, well-appearing, in no acute distress HENT: Normocephalic, atraumatic. Oropharynx unremarkable. EYES: Normal conjunctiva. Sclera non-icteric. NECK: Supple. No nuchal rigidity. FROM. No JVD. RESPIRATORY: Clear to auscultation. CARDIAC: Regular rate, normal rhythm. Extremities warm and well perfused. Pulses equal. ABDOMEN: Soft, non-distended. No tenderness to palpation. No rebound or guarding. No masses. RECTAL: Deferred. MUSCULOSKELETAL: Chest examination reveals no tenderness. The back is symmetrical on inspection without obvious abnormality. There is no CVA tenderness to palpation. No joint edema. LOWER EXTREMITIES: Calves are equal size bilaterally and non-tender. No edema. No discoloration. NEURO: Normal sensorium. No sensory or motor deficits noted. SKIN: No rash or jaundice noted. Medical Decision & Procedures ER Provider Diagnostic Interpretation: Radiology results as stated below per my review and radiologist interpretation: BRAIN W/O FOR TRIGEMINAL HISTORY: 52 years-old Male Pt c/o left sided head pain acute left-sided facial and eye pain. The patient reportedly has a [employer] dorsal spinal stimulator device which was implanted 02/07/2018 COMPARISON: CTA of the head 03/10/2018 TECHNIQUE: Multiplanar multisequence MRI the brain was obtained without the use of IV contrast. Thin section axial 3-D fast images were obtained utilizing institutional trigeminal protocol. FINDINGS: The large [id number] beater operator localizer images demonstrate no gross abnormality. Midline structures including the corpus callosum, brainstem, optic chiasm, pituitary and pineal glands are unremarkable on the sagittal T1 series. No cerebellar tonsillar herniation. Degenerative changes noted within the imaged cervical spine. There is no restricted diffusion to suggest acute or subacute infarction. The bilateral 5th cranial nerves appear normal. Unremarkable appearance involving Meckel's cave bilaterally. No cisternal mass lesions identified. Visualized 7th and 8th cranial nerves also appear unremarkable. Bilateral internal auditory canals are within normal limits. Several sequences are motion degraded. No acute intracranial hemorrhage, midline shift, abnormal extra-axial collections, hydrocephalus or intracranial mass identified. The coronal FLAIR images are extremely motion degraded. Moderate mucoperiosteal thickening of the left sphenoid and posterior right ethmoid air cells. Mild polypoid mucosal thickening of the inferior maxillary sinuses bilaterally. Mastoid air cells are clear. The orbits, scalp, calvarium and soft tissues are within normal limits. IMPRESSION: 1. Motion degraded exam without acute intracranial abnormality identified. 2. Unremarkable appearance of the visualized bilateral 5th cranial nerves. 3. Paranasal sinus disease as above. The above report was generated using voice recognition software. It may contain grammatical, syntax or spelling errors. Electronically signed by: Matthew Amin M.D. 03/10/2018 5:06 PM Dictated Date/Time: 03/10/2018 4:59 PM NECK ANGIO WITH CONTRAST CLINICAL HISTORY: 52 years-old Male presenting with left-sided head pain. TECHNIQUE: Multidetector CT angiography of the neck was performed after the administration of intravenous contrast. 3-D volumetric and/or maximum intensity projection (MIP) images were subsequently reconstructed for review. IV contrast: 119 mL of Optiray 320. A dose lowering technique was used consistent with the principles of ALARA (as low as reasonably achievable). Stenosis measurements were based on NASCET-like criteria. COMPARISON: None. CT DOSE (mGy.cm): The estimated cumulative dose is 1140.55 mGy.cm. FINDINGS: Casino Floor Walker topogram: The patient is edentulous. Aortic arch: Atherosclerosis of the three-vessel aortic arch. Innominate artery: Patent. Right common carotid artery: Patent. Right internal and external carotid arteries: Right carotid bifurcation demonstrates calcified and noncalcified atherosclerotic plaque. This narrows the proximal right internal carotid artery (less than 20% stenosis). The remainder of the right internal carotid artery is widely patent. Right external carotid artery patent. Left common carotid artery: Patent. Left internal and external carotid arteries: Left carotid bifurcation patent. Left internal and external carotid arteries widely patent. Left subclavian artery: Calcified atherosclerotic plaque at the origin of the left subclavian artery does not narrow its lumen. Vertebral arteries: Codominant vertebral arteries. Origins and courses of the bilateral vertebral arteries patent. Other: Limited intracranial evaluation within normal limits. Polypoid mucosal thickening in the maxillary sinuses. Soft tissues of the neck within normal limits allowing for the phase of contrast. Degenerative changes of the cervical spine. Emphysematous changes at the lung apices. Minimal debris noted in the trachea. IMPRESSION: 1. No evidence of dissection, focal vessel occlusion, or significant stenosis of the cervical arteries. 2. Atherosclerosis with less than 20% stenosis of the proximal right internal carotid artery. 3. Emphysema. 4. Minimal debris in the trachea. Electronically signed by: Paulino Mcdaniels M.D. 03/10/2018 2:27 PM Dictated Date/Time: 03/10/2018 2:23 PM ANGIOGRAPHY HEAD COMBO CLINICAL HISTORY: 52 years-old Male presenting with left-sided head pain. TECHNIQUE: Multidetector CT angiography of the head was performed before and after the administration of intravenous contrast. 3-D volumetric and/or maximum intensity projection (MIP) images were subsequently reconstructed for review. IV contrast: 119 mL of Optiray 320. A dose lowering technique was used consistent with the principles of ALARA (as low as reasonably achievable). COMPARISON: None. CT DOSE (mGy.cm): The estimated cumulative dose is 1140.55. FINDINGS: Casino Floor Walker topogram: The patient is edentulous. Noncontrast CT head: Ventricles and sulci normal in size. Brain parenchyma normal in appearance with preserved robertson-white differentiation. No mass effect or midline shift. No hemorrhage or acute territorial infarct. No extra-axial fluid collection. Polypoid mucosal thickening in the sphenoid sinuses. Calvarium intact. CTA head: Anterior circulation: Intracranial portions of the internal carotid arteries patent to the level of the termini. 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 A2 segments of the bilateral anterior cerebral arteries patent. Middle cerebral arteries patent. Anterior communicating artery patent. Posterior circulation: Codominant vertebral arteries. Intradural portions of the vertebral arteries patent. Posterior inferior cerebellar arteries patent. Basilar artery patent. Anterior inferior cerebellar arteries poorly visualized. Superior cerebellar and posterior cerebral arteries patent. Posterior communicating arteries hypoplastic or aplastic. Dural venous sinuses: Patent. Other: Allowing for the phase of contrast, brain parenchyma within normal limits. Calvarium intact. Upper cervical spine normal. IMPRESSION: 1. No acute intracranial abnormality. 2. No evidence of aneurysm, focal vessel occlusion, or significant stenosis of the intracranial arteries. Electronically signed by: Paulino Mcdaniels M.D. 03/10/2018 2:33 PM Dictated Date/Time: 03/10/2018 2:22 PM Laboratory Results 03/10/18 13:00 Red Blood Count 4.63, Mean Corpuscular Volume 90.9, Mean Corpuscular Hemoglobin 32.0, Mean Corpuscular Hemoglobin Concent 35.2, Mean Platelet Volume 10.4, Neutrophils (%) (Auto) 49.1, Lymphocytes (%) (Auto) 36.8, Monocytes (%) (Auto) 10.7, Eosinophils (%) (Auto) 2.8, Basophils (%) (Auto) 0.3, Neutrophils # (Auto ) 3.56, Lymphocytes # (Auto) 2.66, Monocytes # (Auto) 0.77, Eosinophils # (Auto ) 0.20, Basophils # (Auto) 0.02 03/10/18 13:00 Test 03/10/18 13:00 03/10/18 14:30 White Blood Count 7.23 K/uL (4.8-10.8) Red Blood Count 4.63 M/uL (4.7-6.1) Hemoglobin 14.8 g/dL (14.0-18.0) Hematocrit 42.1 % (42-52) Mean Corpuscular Volume 90.9 fL (80-100) Mean Corpuscular Hemoglobin 32.0 pg (25-34) Mean Corpuscular Hemoglobin Concent 35.2 g/dl (32-36) Platelet Count 229 K/uL (130-400) Mean Platelet Volume 10.4 fL (7.4-10.4) Neutrophils (%) (Auto) 49.1 % Lymphocytes (%) (Auto) 36.8 % Monocytes (%) (Auto) 10.7 % Eosinophils (%) (Auto) 2.8 % Basophils (%) (Auto) 0.3 % Neutrophils # (Auto) 3.56 K/uL (1.4-6.5) Lymphocytes # (Auto) 2.66 K/uL (1.2-3.4) Monocytes # (Auto) 0.77 K/uL (0.11-0.59) Eosinophils # (Auto) 0.20 K/uL (0-0.5) Basophils # (Auto) 0.02 K/uL (0-0.2) RDW Standard Deviation 44.7 fL (36.4-46.3) RDW Coefficient of Variation 13.5 % (11.5-14.5) Immature Granulocyte % (Auto) 0.3 % Immature Granulocyte # (Auto) 0.02 K/uL (0.00-0.02) Erythrocyte Sedimentation Rate 25 mm/hr (0-14) Prothrombin Time 10.2 SECONDS (9.0-12.0) Prothromb Time International Ratio 1.0 (0.9-1.1) Anion Gap 5.0 mmol/L (3-11) Est Creatinine Clear Calc Drug Dose 93.8 ml/min Estimated GFR () 97.5 Estimated GFR (Non- 84.1 BUN/Creatinine Ratio 13.9 (10-20) Calcium Level 8.8 mg/dl (8.5-10.1) Total Bilirubin 0.4 mg/dl (0.2-1) Direct Bilirubin < 0.1 mg/dl (0-0.2) Aspartate Amino Transf (AST/SGOT) 21 U/L (15-37) Alanine Aminotransferase (ALT/SGPT) 32 U/L (12-78) Alkaline Phosphatase 127 U/L (45-117) C-Reactive Protein < 0.29 mg/dl (0-0.29) Total Protein 8.0 gm/dl (6.4-8.2) Albumin 3.7 gm/dl (3.4-5.0) Lipase 109 U/L (73-393) Lyme Disease IgG Antibody NEG (NEG) Lyme Disease IgM Antibody NEG (NEG) Urine Color YELLOW Urine Appearance CLEAR (CLEAR) Urine pH 7.0 (4.5-7.5) Urine Specific [place] 1.014 (1.000-1.030) Urine Protein NEG (NEG) Urine Glucose (UA) NEG (NEG) Urine Ketones NEG (NEG) Urine Occult Blood NEG (NEG) Urine Nitrite NEG (NEG) Urine Bilirubin NEG (NEG) Urine Urobilinogen NEG (NEG) Urine Leukocyte Esterase NEG (NEG) Labs reviewed by ED physician. Medications Administered Medications (Trade) Dose Ordered Sig/Pillo Route Start Time Stop Time Status Last Admin Dose Admin Sodium Chloride 1,000 ml @ 999 mls/hr Q1H1M STAT IV 03/10/18 12:34 03/10/18 13:34 DC 03/10/18 13:12 999 MLS/HR Ketorolac Tromethamine (Toradol Inj) 30 mg NOW STAT IV 03/10/18 12:34 03/10/18 12:38 DC 03/10/18 13:12 30 MG Prochlorperazine Edisylate (Compazine Inj) 10 mg NOW STAT IV 03/10/18 12:34 03/10/18 12:38 DC 03/10/18 13:11 10 MG Diphenhydramine HCl (Benadryl Inj) 50 mg NOW STAT IV 03/10/18 12:34 03/10/18 12:38 DC 03/10/18 13:11 50 MG Magnesium Sulfate (Magnesium Sulfate) 1 gm NOW STAT IV 03/10/18 12:34 03/10/18 12:38 DC 03/10/18 13:11 1 GM Carbamazepine (Tegretol Tab) 100 mg NOW STAT PO 03/10/18 12:51 03/10/18 12:52 DC 03/10/18 13:12 100 MG Dexamethasone Sodium Phosphate (Dexamethasone Inj Pf) 10 mg STK-MED ONCE .ROUTE 03/10/18 14:58 03/10/18 14:59 DC 03/10/18 15:04 10 MG Lorazepam (Ativan Inj) 1 mg NOW STAT IV 03/10/18 16:10 03/10/18 16:11 DC 03/10/18 16:23 1 MG ED Course 1227: Past medical records reviewed. The patient was evaluated in room A10. A complete history and physical examination was performed. 1234: Ordered Magnesium Sulfate 1 gm IV, Benadryl 50 mg IV, Compazine 10 mg IV, Toradol 30 mg IV, Sodium Chloride 1000 mL @ 999 mL/hr IV. 1248: I discussed the case with the ED Pharmacist, she suggests trying Carbamazepine 100 mg. 1251: Ordered Carbamazepine 100 mg PO. 1312: I discussed the case with the eclectic doctor. She will GOOGLE the patient's in plant and see if he can have the MRI with it. 1451: Ordered Dexamethasone 2.5 mL @ 1 mL/min IV. 1610: Ordered Lorazepam 1 mg IV. 1732: Upon reexamination the patient is resting in bed. I discussed results and treatment plan with the patient. He verbalizes agreement and understanding. The patient is ready for discharge. Medical Decision Differential diagnosis: Etiologies such as migraine headache, meningitis, sinusitis, CO exposure, ICH, SAH, infection, tumor, headache, sinus thrombosis, arterial dissection, as well as others were entertained This is a 52-year-old male who presents the emergency department complaining of left-sided facial pain that starts in his neck and radiates up into his eye. The patient appears to be describing spasms and I suspect there is some component of trigeminal neuralgia. He has no evidence of meningitis or encephalitis on examination in addition has no elevation in his white blood cell count and is not febrile. In the emergency department patient is given a normal saline bolus, Toradol, Compazine, Benadryl along with magnesium. Repeat examination revealed improvement in patient's symptoms. Based on the fact that the patient has an elevation in his blood pressure we elected to try and place the patient on carbamazepine to see if this prevents his headache flashes. I also feel that the patient needs a follow-up with Dr. Conway's office as this pain started after his neurostimulator was placed. I did refer the patient to neurology and gave him a shot of Decadron to try and prevent a rebound headache. He was placed on a weeks supply of carbamazepine. As the patient just finished his Augmentin and I will place him on doxycycline and encouraged him to use nasal spray. He was also told to stop smoking. I strongly encouraged him to return to the emergency department if he develops fevers and severe head and neck pain for an LP. Patient was in agreement with the treatment plan. Medication Reconcilliation Current Medication List: was personally reviewed by me Blood Pressure Screening Patient's blood pressure: Elevated blood pressure Blood pressure disposition: Referred to PCP Impression Primary Impression: Headache Scribe Attestation The scribe's documentation has been prepared under my direction and personally reviewed by me in its entirety. I confirm that the note above accurately reflects all work, treatment, procedures, and medical decision making performed by me. Departure Information Dispostion Home / Self-Care Prescriptions Carbamazepine (TEGRETOL) 200 Mg Tab 100 MG PO BID for 10 Days, #10 TAB Prov: Sunday Schafer MD 03/10/18 Doxycycline Monohydrate (Monodox) 100 Mg Cap 100 MG PO BID for 10 Days, #20 CAP Prov: Sunday Schafer MD 03/10/18 Referrals No Doctor, Assigned (PCP) Forms HOME CARE DOCUMENTATION FORM, IMPORTANT VISIT INFORMATION Patient Instructions [facility] Additional Instructions Need to return if you develop severe head and neck pain and fevers Use [place] nasal spray twice every [address] up with [address] Quintero's office (Neuro) Follow up with DR Slade's office (pain control) Follow up with DR Conway's office You were found to have an elevated blood pressure today (>120 sytolic or >90 diastolic). Per medicare guidelines, you need to follow up with this blood pressure screening with your Primary Care Physician (PCP). For a new PCP call [phone]. You received narcotic or benzodiazepene medication while in the emergency room today. This is an addictive medication that may cause drowziness as well as constipation. Do not drive, operate heavy machinery, or drink alcohol under the influence of this medication. You have been examined and treated today on an emergency basis only. This is not a substitute for, or an effort to provide, complete comprehensive medical care. It is impossible to recognize and treat all injuries or illnesses in a single emergency department visit. It is therefore important that you follow up closely with your PCP. Call as soon as possible for an appointment. Thank you for your time and consideration. I look forward to speaking with you again soon. Please don't hesitate to call us if you have any questions. Problem Qualifiers Primary Impression: Headache Headache type: unspecified Headache chronicity pattern: unspecified pattern Intractability: not intractable Qualified Codes: R51 - Headache
[2018-03-10] MEDS ORDERED: OPTIRAY 320 IV PRN (12:45)
[2018-03-10] MEDS ORDERED: CARBAMAZEPINE 200 MG TAB PO STA (12:51)
[2018-03-10 13:14] LABS: BASO % 0.3 %; BASO ABS # 0.02 K/uL (0-0.2); EOS % 2.8 %; HEMATOCRIT 42.1 % (42-52); HEMOGLOBIN 14.8 g/dL (14.0-18.0); IG# 0.02 K/uL (0.00-0.02); LYMPH % 36.8 %; LYMPH ABS # 2.66 K/uL (1.2-3.4); MEAN CELL VOLUME 90.9 fL (80-100); MEAN CORPUSCULAR HGB CONC 35.2 g/dl (32-36); MEAN PLATELET VOLUME 10.4 fL (7.4-10.4); MONO % 10.7 %; MONO ABS # 0.77 K/uL (0.11-0.59); NEUT % 49.1 %; NEUT ABS # 3.56 K/uL (1.4-6.5); PLATELET COUNT 229 K/uL (130-400); RED CELL DISTRIBUTION WIDTH CV 13.5 % (11.5-14.5); RED CELL DISTRIBUTION WIDTH SD 44.7 fL (36.4-46.3); WHITE BLOOD COUNT 7.23 K/uL (4.8-10.8)
[2018-03-10 13:30] LABS: ALBUMIN 3.7 gm/dl (3.4-5.0); ALT/SGPT 32 U/L (12-78); AST/SGOT 21 U/L (15-37); BLOOD UREA NITROGEN 14 mg/dl (7-18); CALCIUM 8.8 mg/dl (8.5-10.1); CARBON DIOXIDE 25 mmol/L (21-32); CREATININE 1.02 mg/dl (0.60-1.40); GLUCOSE 95 mg/dl (70-99); LIPASE 109 U/L (73-393); POTASSIUM 3.6 mmol/L (3.5-5.1); SODIUM 137 mmol/L (136-145)
[2018-03-10 13:33] LABS: ALKALINE PHOSPHATASE 127 U/L (45-117)
--- NOTE | 2018-03-10 14:28 | DIAGNOSTIC IMAGING REPORT ---
NECK ANGIO WITH CONTRAST CLINICAL HISTORY: 52 years-old Male presenting with left-sided head pain. TECHNIQUE: Multidetector CT angiography of the neck was performed after the administration of intravenous contrast. 3-D volumetric and/or maximum intensity projection (MIP) images were subsequently reconstructed for review. IV contrast: 119 mL of Optiray 320. A dose lowering technique was used consistent with the principles of ALARA (as low as reasonably achievable). Stenosis measurements were based on NASCET-like criteria. COMPARISON: None. CT DOSE (mGy.cm): The estimated cumulative dose is 1140.55 mGy.cm. FINDINGS: Fabrication Specialist topogram: The patient is edentulous. Aortic arch: Atherosclerosis of the three-vessel aortic arch. Innominate artery: Patent. Right common carotid artery: Patent. Right internal and external carotid arteries: Right carotid bifurcation demonstrates calcified and noncalcified atherosclerotic plaque. This narrows the proximal right internal carotid artery (less than 20% stenosis). The remainder of the right internal carotid artery is widely patent. Right external carotid artery patent. Left common carotid artery: Patent. Left internal and external carotid arteries: Left carotid bifurcation patent. Left internal and external carotid arteries widely patent. Left subclavian artery: Calcified atherosclerotic plaque at the origin of the left subclavian artery does not narrow its lumen. Vertebral arteries: Codominant vertebral arteries. Origins and courses of the bilateral vertebral arteries patent. Other: Limited intracranial evaluation within normal limits. Polypoid mucosal thickening in the maxillary sinuses. Soft tissues of the neck within normal limits allowing for the phase of contrast. Degenerative changes of the cervical spine. Emphysematous changes at the lung apices. Minimal debris noted in the trachea. IMPRESSION: 1. No evidence of dissection, focal vessel occlusion, or significant stenosis of the cervical arteries. 2. Atherosclerosis with less than 20% stenosis of the proximal right internal carotid artery. 3. Emphysema. 4. Minimal debris in the trachea. Electronically signed by: Paulino Mcdaniels M.D. 03/10/2018 2:27 PM Dictated Date/Time: 03/10/2018 2:23 PM
--- NOTE | 2018-03-10 14:35 | DIAGNOSTIC IMAGING REPORT ---
ANGIOGRAPHY HEAD COMBO CLINICAL HISTORY: 52 years-old Male presenting with left-sided head pain. TECHNIQUE: Multidetector CT angiography of the head was performed before and after the administration of intravenous contrast. 3-D volumetric and/or maximum intensity projection (MIP) images were subsequently reconstructed for review. IV contrast: 119 mL of Optiray 320. A dose lowering technique was used consistent with the principles of ALARA (as low as reasonably achievable). COMPARISON: None. CT DOSE (mGy.cm): The estimated cumulative dose is 1140.55. FINDINGS: Wholesale Parts Salesperson topogram: The patient is edentulous. Noncontrast CT head: Ventricles and sulci normal in size. Brain parenchyma normal in appearance with preserved robertson-white differentiation. No mass effect or midline shift. No hemorrhage or acute territorial infarct. No extra-axial fluid collection. Polypoid mucosal thickening in the sphenoid sinuses. Calvarium intact. CTA head: Anterior circulation: Intracranial portions of the internal carotid arteries patent to the level of the termini. 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 A2 segments of the bilateral anterior cerebral arteries patent. Middle cerebral arteries patent. Anterior communicating artery patent. Posterior circulation: Codominant vertebral arteries. Intradural portions of the vertebral arteries patent. Posterior inferior cerebellar arteries patent. Basilar artery patent. Anterior inferior cerebellar arteries poorly visualized. Superior cerebellar and posterior cerebral arteries patent. Posterior communicating arteries hypoplastic or aplastic. Dural venous sinuses: Patent. Other: Allowing for the phase of contrast, brain parenchyma within normal limits. Calvarium intact. Upper cervical spine normal. IMPRESSION: 1. No acute intracranial abnormality. 2. No evidence of aneurysm, focal vessel occlusion, or significant stenosis of the intracranial arteries. Electronically signed by: Paulino Mcdaniels M.D. 03/10/2018 2:33 PM Dictated Date/Time: 03/10/2018 2:22 PM
[2018-03-10] MEDS ORDERED: DEXAMETHASONE INJ 10 MG in SYRINGE 0 ML IV STA (14:51)
[2018-03-10] MEDS ORDERED: DEXAMETHASONE **PF** INJ 10 MG/ML VIAL ONE (14:58)
[2018-03-10] MEDS ORDERED: LORAZEPAM 2 MG/ML 1 ML VIAL IV STA (16:10)
--- NOTE | 2018-03-10 17:08 | DIAGNOSTIC IMAGING REPORT ---
BRAIN W/O FOR TRIGEMINAL HISTORY: 52 years-old Male Pt c/o left sided head pain acute left-sided facial and eye pain. The patient reportedly has a [employer] dorsal spinal stimulator device which was implanted 02/07/2018 COMPARISON: CTA of the head 03/10/2018 TECHNIQUE: Multiplanar multisequence MRI the brain was obtained without the use of IV contrast. Thin section axial 3-D fast images were obtained utilizing institutional trigeminal protocol. FINDINGS: The large [id number] convex grinder localizer images demonstrate no gross abnormality. Midline structures including the corpus callosum, brainstem, optic chiasm, pituitary and pineal glands are unremarkable on the sagittal T1 series. No cerebellar tonsillar herniation. Degenerative changes noted within the imaged cervical spine. There is no restricted diffusion to suggest acute or subacute infarction. The bilateral 5th cranial nerves appear normal. Unremarkable appearance involving Meckel's cave bilaterally. No cisternal mass lesions identified. Visualized 7th and 8th cranial nerves also appear unremarkable. Bilateral internal auditory canals are within normal limits. Several sequences are motion degraded. No acute intracranial hemorrhage, midline shift, abnormal extra-axial collections, hydrocephalus or intracranial mass identified. The coronal FLAIR images are extremely motion degraded. Moderate mucoperiosteal thickening of the left sphenoid and posterior right ethmoid air cells. Mild polypoid mucosal thickening of the inferior maxillary sinuses bilaterally. Mastoid air cells are clear. The orbits, scalp, calvarium and soft tissues are within normal limits. IMPRESSION: 1. Motion degraded exam without acute intracranial abnormality identified. 2. Unremarkable appearance of the visualized bilateral 5th cranial nerves. 3. Paranasal sinus disease as above. The above report was generated using voice recognition software. It may contain grammatical, syntax or spelling errors. Electronically signed by: Matthew Amin M.D. 03/10/2018 5:06 PM Dictated Date/Time: 03/10/2018 4:59 PM
[2018-03-10] MEDS ORDERED: DOXY100C76 PO (17:24)
[2018-03-10] MEDS ORDERED: CARB200T PO (17:24)
[2018-03-10 17:43] VITALS: BP 173/93; PULSE 84; O2SAT 98
== END 2018-03-10 17:44 | disposition home or self-care (01) ==
LOC: C.EDB 11:29 → C.EDA 17:44
DX: R51 Headache (principal); J02.9 Acute pharyngitis, unspecified; J01.20 Acute ethmoidal sinusitis, unspecified; J01.00 Acute maxillary sinusitis, unspecified; J01.30 Acute sphenoidal sinusitis, unspecified; I65.21 Occlusion and stenosis of right carotid artery; J43.9 Emphysema, unspecified

== ENCOUNTER 2022-10-09 05:35 | Inpatient (IN) ==
--- NOTE | 2022-10-05 11:08 | Anesthesiology Consultation ---
Date of Service October 05, 2022 Assessment & Plan (1) Encounter for pre-operative examination: Plan - COVID screening: Per assessment on 10/04: No known COVID-19 positive contacts or current COVID-19 related symptoms. Travel screen negative. Patient vaccinated. At surgeon discretion if preop Covid testing being done. - Cardiology pre-op evaluation 07/09/22: "...pre-op evaluation in preparation for aorto-bifemoral bypass...does not have sob or chest discomfort...can ascend a flight of stairs without sob or chest discomfort...negative stress echo, positive stress ekg which is likely false positive given resolution of EKG changes at rest, achieving 89% MPHR...reviewed his stress test with Dr. Mallory who feels that the abnormal EKG is a false positive given the echo and that the patient can proceed with his surgery...able to achieve 4 METS...low risk to proceed. No further cardiac testing needed prior...blood pressure is elevated and has been over his last few visits...check at home and return for a nursing visit in 2 weeks to review his log...hold off on starting antihypertensives until after his surgery to allow for higher pressures to perfuse his legs...recommend he start on statin therapy 10 mg daily rosuvastatin...recheck lipis in 2 months...alk phos is high which will need to be followed up with his PCP..."(alk phos 136) - Patient came into [facility] for Aorto bifemoral bypass on 08/29/22. Per RN communication from that day "Dr Clarke here and he was shown the patient left groin area boil like pimple. He is cancelling surgery today due to infection in that area." Surgery rescheduled to 10/09/22. Preop labs now out of date- if not done prior, will order for DOS. Chart Review Chart Review: Acceptable Risk for Surgery (pending preop labs) and Patient NOT seen in Pre Admission Testing History Surgery Operation Date: 10/09/22 08:00 Proposed Procedures p Aorto Bifemoral Bypass Graft - Kojo Clarke MD Height/Weight Height: 5 ft 9 in Weight: 94.801 kg Allergies Allergy/AdvReac Type Severity Reaction Status Date / Time levofloxacin Allergy Severe "throat Verified 10/04/22 14:52 swelling" blueberry Allergy Unknown THROAT Verified 10/04/22 14:52 SWELLS HIVBENTLEY Medications Home Medications Medication Instructions Recorded Confirmed Last Taken aspirin 81 mg capsule 81 mg PO QAM 06/26/22 10/04/22 08/29/22 08:00 calcium carbonate 300 mg (750 mg) 300 mg PO TID PRN gerd 06/26/22 10/04/22 08/28/22 21:00 chewable tablet (Tums) rosuvastatin 10 mg tablet 10 mg PO QAM 08/23/22 10/04/22 08/29/22 08:00 Past Medical History Medical History Adrenal nodule 1.3 cm left adrenal nodule, right adrenal mass GERD (gastroesophageal reflux disease) well controlled, stable per pt Hearing loss History of hypertension white coat hypertension Hyperlipemia PAD (peripheral artery disease) Spinal stenosis Past Family History Family History Father No problems noted. Mother Family history of diabetes mellitus Past Surgical History [facility] History of cholecystectomy History of colonoscopy 2020 History of hand surgery Left History of lumbar surgery fusion History of surgery spinal cord stimulator trial 01/21/18: Grade 1 view, MAC 3, ETT 8.0. No postop issues per anesthesia progress note. Pt reports remains in place-NOT IS USE PAST FEW YRS History of tooth extraction Social History Smoking Status: Current every day smoker tobacco type: cigarettes Smoking cigarettes per day: 30 Do You Dip or Chew Tobacco: No (quit-years ago) Hx Alcohol Use: Yes alcohol intake frequency: holidays/special occasions only Hx Substance Use: No substance use type: does not use Testing Electrocardiogram Date: 07/03/22 NSR, rate 97 bpm Prolonged QT Chest X-Ray Date: 07/06/22 Cardiomediastinal and hilar silhouettes are within normal limits. Mild pulmonary hyperinflation. No pneumothorax, pleural effusion, airspace consolidation or overt pulmonary edema. Degenerative changes of the shoulders and spine. Partially imaged spinal stimulator leads appear intact. IMPRESSION: No acute process. Stress Test Date: 07/03/22 Dobutamine Technically difficult study Positive ECG for ischemia at 89% MPHR, likely false positive given rapid resolution of ST depression in recovery Negative pharmacologic stress echo at 89% MPHR Occasional PVCs EF 60-65% Other Testing Aorta with runoff CTA 06/01/22 IMPRESSION: 1. Extensive atherosclerotic calcification in mural thrombus involving the infrarenal abdominal aorta with no focal aneurysm. 2. Thrombosis and stenosis of the left common iliac and external iliac arteries. 3. Reconstitution of the left femoral artery from collaterals from the left internal iliac artery. 4. Thrombosis and occlusion of the mid right superficial femoral artery with reconstitution of the distal right superficial femoral artery via collaterals. 5. Additional peripheral artery disease as noted above. 6. Additional nonacute nonvascular findings as delineated above.
--- NOTE | 2022-10-08 15:20 | History & Physical Report ---
Date of Service October 08, 2022 Assessment & Plan (1) Aortoiliac occlusive disease: Plan: Patient is admitted for an aortobifemoral bypass. I have discussed the risks options and benefits of the procedure with the patient. The patient understands the risks options and benefits and agrees to the procedure. History of Present Illness Primary Care Provider: Maylin Simpson PA-C Mr. Hasmukh Love is a very pleasant 56-year-old gentleman, who described a several year history of pain with ambulation to the bilateral legs. This is worse on the left than on the right. He describes that over the years this has become progressive. He has some pain in his thighs and his calves. He is only at this time able to walk from proximally the very short distance of the office to the parking lot (less than 100 yards) prior to needing to stop because of pain. He also describes pain in his bilateral feet that awakens him from sleep at night. He is only able to get a couple hours of sleep before he is awoken. He does describe some symptoms that sound like they are consistent with some sciatic leg pain; however, certainly some of his descriptions of his pain sound as though they are ischemic in nature. He describes cramping of his bilateral feet. When he gets up at night he will sometimes tingle his feet off the bed. Other times, he will get out of bed and get some ibuprofen and go and sit and drink a cup of coffee, and he feels that this helps with his symptoms. He has had no wounds or discoloration of bilateral feet. He had been seen for these symptoms at [facility] and a lower extremity arterial duplex was performed today that was notable for quite extensive disease. Thus, he was referred over to our clinic. His CT angiogram shows a large amount of thrombus within the distal aorta causing a significant narrowing. There is also occlusion of his left common and external iliac artery reconstitution of the femoral artery on the left side. There is also a short occlusion of the right superficial femoral artery with reconstitution of the distal artery at the adductor hiatus. Allergies Allergy/AdvReac Type Severity Reaction Status Date / Time levofloxacin Allergy Severe "throat Verified 10/04/22 14:52 swelling" blueberry Allergy Unknown THROAT Verified 10/04/22 14:52 CHAVO SETH Home Medications Medication Instructions Recorded Confirmed Type aspirin 81 mg capsule 81 mg PO QAM 06/26/22 10/04/22 History calcium carbonate 300 mg (750 mg) 300 mg PO TID PRN gerd 06/26/22 10/04/22 History chewable tablet (Tums) rosuvastatin 10 mg tablet 10 mg PO QAM 08/23/22 10/04/22 History Past Med/Surg History Medical History Adrenal nodule 1.3 cm left adrenal nodule, right adrenal mass GERD (gastroesophageal reflux disease) well controlled, stable per pt Hearing loss History of hypertension white coat hypertension Hyperlipemia PAD (peripheral artery disease) Spinal stenosis Surgical History History of cardiac cath 2000 - no stents-[facility]; f/u PCP History of cholecystectomy History of colonoscopy 2020 History of hand surgery Left History of lumbar surgery fusion History of surgery spinal cord stimulator trial 01/21/18: Grade 1 view, MAC 3, ETT 8.0. No postop issues per anesthesia progress note. Pt reports remains in place-NOT IS USE PAST FEW YRS History of tooth extraction Family History Father No problems noted. Mother Family history of diabetes mellitus Social History Smoking Status: Current every day smoker Cigarettes Per Day: 30; Second Hand Exposure: No; Hx Alcohol Use: Yes Hx Substance Use: No Preferred Language: Malawian Communication Ability: Effective Scrap Metal Burner Required: No Beliefs That Will Affect Care: None Current Living Situation: Significant Other current occupational status: disabled Feels Safe at Home: Yes Assistive Devices: Denture - Upper, Denture - Lower and Glasses Review of Systems All systems reviewed & are unremarkable except as noted in HPI & below Physical Exam Physical Exam: NHe is well appeari ng, well nourished , in no acute dist ress. He is awake , alert, responds to questions appro priately. He is b reathing comfortab ly on room air. Hi s lungs are clear. His heart has a RRR. His bilatera l radial pulses ar e palpable. 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 He kelly s no wounds to the bilateral fingers . His abdomen is soft, nontender, n ondistended with n o palpable pulsati le abdominal christopher s. His right femo ral pulse is faint ly palpable. This was confirmed to be multiphasic wit h Doppler insonati on. He has nonpal pable left femoral pulse. There is a weak Doppler sig nal over the left femoral artery. Tanvi nicole has monophasic d orsalis pedis and posterior tibial s ignals bilaterally . His feet do not display any darke penny discoloration or wounds. He alexander s describe some ch ronic numbness to the bilateral feet , which is unchang ed. He is motor i ntact to the [facility].
[2022-10-09] MEDS ORDERED: ceFAZolin 2,000 MG/15 ML IV PUSH IV ONE (05:49)
[2022-10-09] MEDS ORDERED: LACTATED RINGER'S 1,000 ML IV SCH (06:00)
[2022-10-09] MEDS ORDERED: CEFAZOLIN 2,000 MG/15 ML SYR IV SCH (06:00)
[2022-10-09] MEDS ORDERED: MIDAZOLAM HCL 1 MG/ML 2ML VIAL ONE (07:18)
[2022-10-09] MEDS ORDERED: fentaNYL citrate 100 MCG/2 ML VIAL ONE (07:18)
[2022-10-09] MEDS ORDERED: GELATIN SPONGE SZ 100 ONE (07:22)
[2022-10-09] MEDS ORDERED: ceFAZolin 330 MG/ML 1 GM VIAL ONE (07:22)
[2022-10-09] MEDS ORDERED: HEPARIN (PORCINE) 1000 UNIT/ML 10 ML (CATH LAB USE ONLY) ONE (07:22)
[2022-10-09] MEDS ORDERED: THROMBIN FOR SOLN 20000 UNIT KIT ONE (07:22)
[2022-10-09] MEDS ORDERED: MANNITOL 25% 12.5 GM/50 ML VIAL IV ONE (07:28)
[2022-10-09] MEDS ORDERED: MANNITOL 20% 100GM/500 ML BAG IV ONE (07:28)
--- NOTE | 2022-10-09 07:33 | History & Physical Bridge Note ---
Date of Service October 09, 2022 History & Physical Bridge Note I have examined the patient, reviewed the History & Physical and in the interval since the performance of the History & Physical I have noted the following changes of clinical significance: no changes noted
[2022-10-09] MEDS ORDERED: HYDROmorphone INJ 2 MG/ML SYR/VIAL ONE ×2 (08:34→11:33)
[2022-10-09] MEDS ORDERED: KETAMINE 50 MG/5 ML SYRINGE ONE (08:34)
[2022-10-09] MEDS ORDERED: ROCURONIUM BROMIDE 10 MG/ML 5 ML VIAL IV ONE ×4 (09:05→10:14)
[2022-10-09] MEDS ORDERED: PHENYLEPHRINE HCL 10 MG/ML VIAL ONE (09:05)
[2022-10-09] MEDS ORDERED: ONDANSETRON INJ 2 MG/ML 2 ML VIAL ONE (09:05)
[2022-10-09] MEDS ORDERED: ePHEDrine sulfate 50 MG/ML SYR ONE (09:05)
[2022-10-09] MEDS ORDERED: LIDOCAINE 2% 2 ML VIAL/AMP(20MG/ML) INFIL ONE (09:05)
[2022-10-09] MEDS ORDERED: PROPOFOL IV EMULSION 10 MG/ML 20 ML VIAL IV ONE ×2 (09:05→12:15)
[2022-10-09] MEDS ORDERED: DEXAMETHASONE SOD INJ 4 MG/ML VIAL ONE (09:05)
[2022-10-09] MEDS ORDERED: HEPARIN SOD (PORCINE) 1000 UNIT/ML ONE ×2 (09:12→10:29)
[2022-10-09] MEDS ORDERED: PROTAMINE SULFATE 10 MG/ML 5 ML VIAL IV ONE (11:26)
[2022-10-09] MEDS ORDERED: SUGAMMADEX SODIUM 200 MG/2 ML VIAL IV ONE (11:55)
[2022-10-09] MEDS ORDERED: ESMOLOL HCL INJ 10 MG/ML 10ML VIAL IV ONE (12:15)
[2022-10-09] MEDS ORDERED: SURGICEL ABSORB HEMOSTAT 2IN X 14IN TOP ONE (12:17)
[2022-10-09] MEDS ORDERED: ceFAZolin 2000MG 2,000 MG/15 ML SYR IV ONE (12:18)
[2022-10-09] MEDS ORDERED: LABETALOL HCL IV 5 MG/ML 20ML IV PRN (13:00)
[2022-10-09] MEDS ORDERED: ATROPINE SULFATE 0.1 MG/ML 10ML SYR IV PRN (13:00)
[2022-10-09] MEDS ORDERED: ePHEDrine sulfate 50 MG/ML AMP IV PRN (13:00)
[2022-10-09] MEDS ORDERED: fentaNYL citrate 100 MCG/2 ML VIAL IV PRN (13:00)
[2022-10-09] MEDS ORDERED: ONDANSETRON INJ 2 MG/ML 2 ML VIAL IV PRN (13:00)
[2022-10-09] MEDS ORDERED: METOPROLOL TARTRATE 1 MG/ML VIAL IV ONE (13:09)
--- NOTE | 2022-10-09 13:25 | Post Operative Brief Note ---
Immediate Post Op Note v1 Date of Surgery October 09, 2022 Pre & Post Diagnosis Operation Date: 10/09/22 08:00 Pre-Op Diagnosis: Aortoiliac Occlusive Disease Post-Op Diagnosis: Aortoiliac Occlusive Disease I identified the patient and participated in the time-out.: Yes Procedure Operation Date: 10/09/22 08:00 Actual Procedures p Aortobifemoral Bypass Graft(Not Applicable) - Kojo Clarke MD Surgeon Kojo Clarke MD Nuclear Design Engineer Solomon,PAC Estimated Blood Loss 250 Findings Consistent with Post-Op Diagnosis Drains Velazquez Catheter Anesthesia Type General Complications none Disposition Accompanied Patient To Recovery: No Disposition: Recovery Room
--- NOTE | 2022-10-09 13:48 | Anesthesiology Progress Note ---
Date of Service October 09, 2022 Anesthesia Post Procedure Vital Signs Vital Signs: Temp Pulse Pulse Resp BP BP BP 10/09/22 13:15 90 21 155/87 H 160/87 H 10/09/22 13:05 96 H 13 183/105 H 173/91 H 10/09/22 12:58 36.2 C L 106 H 17 172/113 H 178/97 H 10/09/22 06:12 36.7 C 97 H 20 188/110 H 185/102 H Pulse Ox O2 Del Method O2 Flow Rate 10/09/22 13:15 96 Oxymask 4 10/09/22 13:05 99 Oxymask 6 10/09/22 12:58 99 Oxymask 6 10/09/22 06:12 97 Room Air Transfer of Care Handoff Completed per policy Notes Mental Status: alert / awake / arousable and participated in evaluation Patient Amnestic to Procedure: Yes Nausea / Vomiting: adequately controlled Pain: adequately controlled Airway Patency, RR, SpO2: stable & adequate BP & HR: stable & adequate Hydration State: stable & adequate Anesthetic Complications: no major complications apparent
[2022-10-09 14:22] LABS: Basophils # (auto) 0.04 K/uL (0-0.2); Basophils % (auto) 0.2 %; Eosinophils # (auto) 0.01 K/uL (0-0.50); Eosinophils % (auto) 0.1 %; Hematocrit (blood only) 45.2 % (40.1-51.0); Hemoglobin 15.5 g/dl (14.0-18.0); Immature Granulocytes # (auto) 0.08 K/uL (0.00-0.02); Immature Granulocytes % (auto) 0.4 %; Lymphocytes # (auto) 1.38 K/uL (1.2-3.4); Lymphocytes % (auto) 7.3 %; Mean Corpuscular Hemoglobin 32.1 pg (25.0-34.0); Mean Corpuscular Hgb Conc 34.3 g/dL (32.0-36.0); Mean Corpuscular Volume 93.6 fL (80.0-100.0); Mean Platelet Volume 10.2 fL (9.4-12.4); Monocytes # (auto) 0.91 K/uL (0.24-0.82); Monocytes % (auto) 4.8 %; Neutrophils # (auto) 16.61 K/uL (1.4-6.5); Neutrophils % (auto) 87.2 %; Platelet Count 228 K/uL (130-400); RDW Coefficient of Variation 13.5 % (11.5-14.5); RDW Standard Deviation 46.7 fL (36.4-46.3); Red Blood Count 4.83 M/uL (4.63-6.08); White Blood Count 19.03 K/ul (4.8-10.8)
[2022-10-09 14:35] LABS: Partial Thromboplastin Ratio 0.8; Partial Thromboplastin Time 23.1 Seconds (21.0-31.0)
[2022-10-09] MEDS: D5W AND 1/2NSS 1,000 ML IV SCH (14:50)
[2022-10-09] MEDS: MoRPHine SULFATE 4 MG/ML 1 ML CARP\\VIAL IV PRN ×4 (14:50→20:08)
[2022-10-09] MEDS: ONDANSETRON INJ 2 MG/ML 2 ML VIAL IV PRN (14:50)
[2022-10-09 14:53] LABS: BUN Creatinine Ratio 16.7 (10-20); Calcium 8.3 mg/dl (8.5-10.1); Creatinine Clr Calc Pharmacy 81.1 ml/min; Est GFR (African American) 82.3 ml/min; Magnesium 1.8 mg/dl (1.7-2.4); Potassium 4.1 mmol/L (3.5-5.1)
--- NOTE | 2022-10-09 17:20 | Billing Data ---
Date of Service October 09, 2022 Coding Level of Care Code 98471 Initial Inpt Care Lvl 3
--- NOTE | 2022-10-09 17:27 | Critical Care Consultation ---
Date of Consultation October 09, 2022 Assessment & Plan (1) Aortoiliac occlusive disease: (2) Lumbar stenosis with neurogenic claudication: Plan Neuro CAM ICU: Negative Sedation/Analgesia: None. Oxycodone/acetaminophen for moderate pain, morphine PRN severe pain. Cardiac Aortoiliac Occulsive Disease: -Symptoms of claudication and numbness prior to bypass. -CTA demonstrating thrombosis and stenosis of left common iliac and external iliac arteries. -Patient s/p aortobifemoral bypass graft. -Perfusing well at this time. Vitals stable, continue to monitor. HTN: -Continue Losartan 50mg daily. Respiratory No history of respiratory disease. Supplemental O2 for saturations <90% GI NG tube in place, patient NPO. Will defer management to surgery. Continue Pantoprazole 40mg IV daily. Renal/Electrolytes Electrolytes, kidney function WNL. Continue to monitor. Monitor I&O's. Endo No history of diabetes or thyroid disease. Heme Hemoglobin, platelets within normal limtis. Leukocytosis at 19.03 however vitals stable, afebrile most likely reactive. ID No signs of infection, afebrile, vitals stable. Lines/IV Access peripheral IV. DVT Prophylaxis SCDs Dispo: ICU. Supervising Physician Co-Signing Physician Notes Dr. Hsieh was the resident-physician during care of patient. I separately evaluated patient for zamora portions of the history and the exam. I was present during the critical portion of medical decision making, and I discussed the case with the resident. I generally agree with the findings and plan except for any additions/exceptions noted. 57-year-old male past medical history of peripheral vascular disease came to the hospital for aortofemoral bypass. Patient had the procedure done and was sent to the ICU for further management At the time of examination he was complaining of abdominal pain. Heart rate was in the 110s He did have an NGT. Would see he said it is irritating him. Denied any headache, no shortness of breath, no chest pain. Constitutional: No acute distress HEENT: EOMI, PERRLA Respiratory system: Decreased air entry bilaterally, no wheeze, no rhonchi, positive crackles bilateral lower lobes CVS: S1-S2 positive, no murmurs or gallops Abdomen: Soft, mildly distended, tenderness around incision site, no rebound, decreased bowel sounds x4 Extremities: +2 pulses bilaterally radialis, +2 left dorsalis pedis, +1 right dorsalis pedis, no cyanosis, no edema Neuro: Awake alert oriented x3 Psych: Normal mood and affect G/U: Positive Velazquez --Prophylaxis VTE: None GI: Pantoprazole Lines: Right radial Diet: N.p.o. Plan: Pain medication [id number] Monitor for pulses in the bilateral lower extremities Blood pressure medication to keep systolic blood pressure less than 160 Nicotine patch for history of smoking/COPD Please note the above document was generated using voice recognition software. It may contain grammatical, syntax or spelling errors.Any formal questions or concerns about the content, text or information contained within the body of th is dictation should be directly addressed to the provider for clarification. History of Present Illness Reason for Consultation: Post AF2 Requesting Physician: Dr. Clarke Attending Physician: Kojo Clarke MD History of Present Illness Hasmukh is a 57 year old male w/ PmHx PAD, HTN, HLD, adrenal nodule admitted to the hospital for aortobifemoral bypass. Patient states that prior to the surgery he was having symptoms of cramping in bilateral calves, numbness at the bilateral feet and legs that caused him to stumble and fall a few times. He stated at first he was evaluated for possible neuropathic type origin to the numbness however after imaging they told him he had significant stenosis to his femoral artery that he warranted a visit to Dr. Clarke. Patient stated he then saw Dr. Clarke who determined he would benefit from a bypass. He came in today and had the bypass performed without issue. Patient states his only complaint at this time is wanting the NG tube out and wanting to eat since he is hungry. He denies headache, shortness of breath, chest pain, nausea. Allergies Allergy/AdvReac Type Severity Reaction Status Date / Time levofloxacin Allergy Severe "throat Verified 10/09/22 06:00 swelling" blueberry Allergy Unknown THROAT Verified 10/09/22 06:00 CHAVO SETH Home Medications Medication Instructions Recorded Confirmed Type aspirin 81 mg capsule 81 mg PO QAM 06/26/22 10/09/22 History calcium carbonate 300 mg (750 mg) 300 mg PO TID PRN gerd 06/26/22 10/09/22 History chewable tablet (Tums) rosuvastatin 10 mg tablet 10 mg PO QAM 08/23/22 10/09/22 History famotidine 20 mg PO DAILY 10/09/22 10/09/22 History losartan 50 mg tablet 50 mg PO DAILY 10/09/22 10/09/22 History omeprazole 20 mg capsule,delayed 20 mg PO DAILY 10/09/22 10/09/22 History release Patient History Medical History Adrenal nodule 1.3 cm left adrenal nodule, right adrenal mass GERD (gastroesophageal reflux disease) well controlled, stable per pt Hearing loss History of hypertension white coat hypertension Hyperlipemia PAD (peripheral artery disease) Spinal stenosis Surgical History History of cardiac cath 2000 - no stents-[facility]; f/u PCP History of cholecystectomy History of colonoscopy 2020 History of hand surgery Left History of lumbar surgery fusion History of surgery spinal cord stimulator trial 01/21/18: Grade 1 view, MAC 3, ETT 8.0. No postop issues per anesthesia progress note. Pt reports remains in place-NOT IS USE PAST FEW YRS History of tooth extraction Family History Father No problems noted. Mother Family history of diabetes mellitus Social History Smoking Status: Current every day smoker Cigarettes Per Day: 30; Second Hand Exposure: No; Do You Dip or Chew Tobacco: No (quit-years ago); Tobacco Cessation Education Requested by Patient: No Hx Alcohol Use: Yes Hx Substance Use: No Preferred Language: [place] Islander Communication Ability: Effective Manager [employer] Required: No Beliefs That Will Affect Care: None Current Living Situation: Significant Other current occupational status: disabled Other Information That Helps Us Care for You: No Feels Safe at Home: Yes Safety Concerns: Feels Safe At This Time Assistive Devices: Denture - Upper, Denture - Lower and Glasses Review of Systems Review of Systems: As per HPI. Physical Exam Constitutional: WD/WN, vitals as above Eyes: PERRL, conjunctivae normal, anicteric sclerae ENMT: NG tube in place draining bilious fluid. Respiratory: normal respiratory effort, lungs clear to auscultation Cardiovascular: RRR, no murmur, no edema peripheral pulses 2+ at bilateral lower extremities. Gastrointestinal (Abdomen): normal bowel sounds, soft, nontender, no hepatosplenomegaly Skin: No significant erythema or swelling at the surgical sites. No rashes. Psychiatric: A+Ox3, euthymic affect Results & Data Results & Data ([facility]) Vital Signs (Past 12 Hours) Vital Signs Temp Pulse Pulse Pulse Resp BP BP 10/09/22 16:00 97 H 12 10/09/22 16:00 161/87 H 10/09/22 15:30 102 H 21 10/09/22 16:31 10/09/22 16:28 10/09/22 15:15 98 H 12 10/09/22 15:00 93 H 14 10/09/22 15:00 143/101 H 10/09/22 14:45 94 H 13 10/09/22 14:33 98 H 18 10/09/22 15:12 10/09/22 15:12 10/09/22 15:10 37.1 C 10/09/22 14:09 91 H 16 10/09/22 13:45 36.5 C 90 12 10/09/22 13:35 96 H 14 10/09/22 13:25 96 H 12 10/09/22 13:15 90 21 155/87 H 10/09/22 13:55 96 H 16 153/96 H 10/09/22 13:05 96 H 13 183/105 H 10/09/22 12:58 36.2 C L 106 H 17 172/113 H 10/09/22 06:12 36.7 C 97 H 20 188/110 H BP BP Pulse Ox O2 Del Method O2 Flow Rate 10/09/22 16:00 93 10/09/22 16:00 10/09/22 15:30 94 10/09/22 16:31 Room Air 10/09/22 16:28 90 Room Air 10/09/22 15:15 94 10/09/22 15:00 94 Oxymask 2 10/09/22 15:00 10/09/22 14:45 94 10/09/22 14:33 94 10/09/22 15:12 Oxymask 2 10/09/22 15:12 Oxymask 10/09/22 15:10 10/09/22 14:09 152/80 H 94 Oxymask 4 10/09/22 13:45 144/79 H 95 Oxymask 4 10/09/22 13:35 154/83 H 95 Oxymask 4 10/09/22 13:25 156/84 H 97 Oxymask 4 10/09/22 13:15 160/87 H 96 Oxymask 4 10/09/22 13:55 145/81 H 95 Oxymask 4 10/09/22 13:05 173/91 H 99 Oxymask 6 10/09/22 12:58 178/97 H 99 Oxymask 6 10/09/22 06:12 185/102 H 97 Room Air Resident Activity Tracking Resident Involvement: Resident Care Provided Care Provided: Adult Hospital Medicine
[2022-10-09] MEDS ORDERED: FLUARIX QUADRIVALENT 0.5 ML SYR IM ONE (17:30)
[2022-10-09] MEDS: ceFAZolin 2000MG 2,000 MG/15 ML SYR IV SCH (19:26)
[2022-10-09] MEDS: NICOTINE 21 MG/24 HR TDSY TD SCH (20:08)
[2022-10-10] MEDS: MoRPHine SULFATE 4 MG/ML 1 ML CARP\\VIAL IV PRN ×6 (00:28→19:09)
[2022-10-10] MEDS: D5W AND 1/2NSS 1,000 ML IV SCH ×4 (02:38→17:42)
[2022-10-10] MEDS: ceFAZolin 2000MG 2,000 MG/15 ML SYR IV SCH (03:53)
[2022-10-10 05:14] LABS: Basophils # (auto) 0.04 K/uL (0-0.2); Basophils % (auto) 0.3 %; Eosinophils # (auto) 0.04 K/uL (0-0.50); Eosinophils % (auto) 0.3 %; Hematocrit (blood only) 43.7 % (40.1-51.0); Hemoglobin 15.2 g/dl (14.0-18.0); Immature Granulocytes # (auto) 0.08 K/uL (0.00-0.02); Immature Granulocytes % (auto) 0.5 %; Lymphocytes # (auto) 2.09 K/uL (1.2-3.4); Lymphocytes % (auto) 13.5 %; Mean Corpuscular Hemoglobin 31.9 pg (25.0-34.0); Mean Corpuscular Hgb Conc 34.8 g/dL (32.0-36.0); Mean Corpuscular Volume 91.8 fL (80.0-100.0); Mean Platelet Volume 10.3 fL (9.4-12.4); Monocytes # (auto) 1.57 K/uL (0.24-0.82); Monocytes % (auto) 10.2 %; Neutrophils # (auto) 11.62 K/uL (1.4-6.5); Neutrophils % (auto) 75.2 %; Platelet Count 202 K/uL (130-400); RDW Coefficient of Variation 13.6 % (11.5-14.5); Red Blood Count 4.76 M/uL (4.63-6.08); White Blood Count 15.44 K/ul (4.8-10.8)
[2022-10-10] MEDS ORDERED: FUROSEMIDE INJ 20 MG/2 ML VIAL IV ONE (05:42)
[2022-10-10 05:51] LABS: BUN Creatinine Ratio 17.5 (10-20); Calcium 8.2 mg/dl (8.5-10.1); Creatinine Clr Calc Pharmacy 89.8 ml/min; Est GFR (Non-African American) 80.3 ml/min; Potassium 3.8 mmol/L (3.5-5.1)
[2022-10-10] MEDS ORDERED: CEFAZOLIN 2,000 MG/15 ML SYR IV SCH (06:00)
[2022-10-10] MEDS ORDERED: LACTATED RINGER'S 1,000 ML IV SCH (06:00)
[2022-10-10] MEDS: ONDANSETRON INJ 2 MG/ML 2 ML VIAL IV PRN ×2 (07:12→15:48)
[2022-10-10] MEDS: LOSARTAN POTASSIUM 50 MG TAB PO SCH (07:12)
[2022-10-10] MEDS: oxyCODONE/ACETAMINOPHEN 5mg/325mg TAB PO PRN ×3 (08:08→17:41)
--- NOTE | 2022-10-10 08:16 | Critical Care Progress Note ---
Date of Service October 10, 2022 Assessment & Plan (1) Aortoiliac occlusive disease: (2) Lumbar stenosis with neurogenic claudication: (3) Hypertension: (4) COPD with emphysema: (5) Hypoxia: Plan Neuro CAM ICU: Negative Sedation/Analgesia: None. Oxycodone/acetaminophen for moderate pain, morphine PRN severe pain. Cardiac Aortoiliac Occulsive Disease: -Symptoms of claudication and numbness prior to bypass. -CTA demonstrating thrombosis and stenosis of left common iliac and external iliac arteries. -Patient s/p aortobifemoral bypass graft. -Perfusing well at this time. Continue to monitor. Tachycardia: -Patient has been in sinus tachycardia, heart rate 100's-120's since last evening. -BMP, CBC WNL. -May be secondary to pain however odd patient tachycardic even while asleep. Continue to monitor. HTN: -Patient received 20mg IV Lasix last night for elevated BP's. Restarted on his Losartan this morning. -Continue to monitor. Respiratory -- Hypoxia No history of respiratory disease. 2L NC requirement overnight for saturation to 86% however saturating well. May be due to post procedural atelectasis. Ordered incentive spirometry. Supplemental O2 for saturations <90% GI NG tube in place, patient NPO. Will defer management to surgery. Continue Pantoprazole 40mg daily. Renal/Electrolytes Electrolytes, kidney function WNL. Continue to monitor. Monitor I&O's. Endo No history of diabetes or thyroid disease. Heme Hemoglobin, platelets within normal limtis. Leukocytosis at 19.03, trending down to 15.44, most likely reactive. ID No signs of infection, afebrile, continue to monitor vitals. Lines/IV Access peripheral IV, R radial arterial line. DVT Prophylaxis SCDs Dispo: ICU. Admission and Anticipated Discharge Date Admission Date: October 09, 2022 Supervising Physician Co-Signing Physician Notes Dr. Hsieh was the resident-physician during care of patient. I separately evaluated patient for zamora portions of the history and the exam. I was present during the critical portion of medical decision making, and I discussed the case with the resident. I generally agree with the findings and plan except for any additions/exceptions noted. Patient seen and examined at bedside. No acute distress Overnight patient desaturated to 86% on room air. He was put on 2 L. His blood pressure has been running on the higher side. He was given Lasix overnight by Dr. Clarke for high blood pressure At the time of examinations patient's systolic blood pressure was in the 160s with heart rate in the 120s. He says his pain is better controlled. He is having irritation from the NGT. Denies any nausea or vomiting No chest pain, no shortness of breath Abdominal pain is better compared to yesterday. No flatulence Constitutional: No acute distress HEENT: EOMI, PERRLA Respiratory system: Decreased air entry bilaterally, no wheeze, no rhonchi, positive crackles bilateral lower lobes CVS: S1-S2 positive, no murmurs or gallops Abdomen: Soft, mildly distended, tenderness around incision site, no rebound, decreased bowel sounds x4 Extremities: +2 pulses bilaterally radialis, +2 left dorsalis pedis, +1 right dorsalis pedis, no cyanosis, no edema, lipoma on the right lateral elbow Neuro: Awake alert oriented x3 Psych: Normal mood and affect G/U: Positive Velazquez --Prophylaxis VTE: None GI: Pantoprazole Lines: Right radial Diet: N.p.o. Plan: In/out: +600, urine output 2900 mL Hypoxia is likely from dependent atelectasis as he is not able to take deep breath and from the pain. Incentive spirometry and pain management will be beneficial. H&H is stable. Patient did get 50 mg of losartan which did improve his blood pressure. If his blood pressure still on the higher side would recommend increasing blood pressure or giving IV beta-marissa Will defer VTE prophylaxis as well as antiplatelet medication to vascular surgery Please note the above document was generated using voice recognition software. It may contain grammatical, syntax or spelling errors.Any formal questions or concerns about the content, text or information contained within the body of this dictation should be directly addressed to the provider for clarification. Subjective Patient seen at the bedside this morning saying he feels fine except for a l ittle bit of abdominal pain at times however he states he would like the NG tube out and something to eat. He had a little bit of a headache this morning but that has since resolved. He has not yet passed gas. Denies fevers, chills, shortness of breath, chest pain. Review of Systems Review of Systems: As per HPI. Physical Exam Constitutional: WD/WN, vitals as above Eyes: PERRL, conjunctivae normal, anicteric sclerae ENMT: NG tube in place draining bilious fluid. Respiratory: normal respiratory effort, lungs clear to auscultation peripheral pulses at the bilateral lower extremities present, 2+ on the left, 1+ on the right. Cardiovascular: RRR, no murmur, no edema Gastrointestinal (Abdomen): BS+, obese habitus, soft, mildly tender to palpation around umbilicus, non tender elsewhere. Skin: Mobile, mass on R lateral elbow likely representing lipoma patient states has been there for a while. Psychiatric: A+Ox3, euthymic affect Results & Data Results & Data ([facility]) Vital Signs (Past 12 Hours) Vital Signs Temp Pulse Resp BP Pulse Ox O2 Del Method O2 Flow Rate 10/10/22 08:00 129 H 30 H 92 10/10/22 08:00 167/101 H 10/10/22 07:26 126 H 30 H 91 10/10/22 07:26 160/92 H 10/10/22 07:00 125 H 28 H 90 10/10/22 07:36 Nasal Cannula 2 10/10/22 07:36 36.8 C Nasal Cannula 2 10/10/22 06:00 125 H 21 93 10/10/22 06:00 176/102 H 10/10/22 05:35 120 H 20 93 10/10/22 05:35 173/105 H 10/10/22 05:00 120 H 23 94 10/10/22 05:00 175/99 H Nasal Cannula 2 10/10/22 04:00 119 H 25 H 94 Nasal Cannula 2 10/10/22 04:00 170/103 H 10/10/22 03:00 116 H 16 98 10/10/22 03:00 169/99 H 10/10/22 02:00 125 H 24 90 10/10/22 02:00 173/88 H 10/10/22 01:00 114 H 14 97 10/10/22 01:00 157/98 H 10/10/22 04:00 36 C L 10/10/22 02:52 36.8 C 10/10/22 00:00 121 H 21 90 10/10/22 00:00 168/100 H 10/09/22 23:00 113 H 16 91 10/09/22 23:00 175/97 H 10/09/22 22:00 110 H 16 91 10/09/22 22:00 155/97 H 10/09/22 21:00 108 H 14 91 10/09/22 21:00 162/92 H 10/10/22 00:00 114 H 10/10/22 00:00 36.9 C Laboratory Results 10/10/22 04:45 10/10/22 04:45 Resident Activity Tracking Resident Involvement: Resident Care Provided Care Provided: Adult [facility] Medicine
[2022-10-10 08:47] LABS: Magnesium 1.8 mg/dl (1.7-2.4); Phosphorus 3.6 mg/dl (2.5-4.9)
[2022-10-10] MEDS ORDERED: FLUARIX QUADRIVALENT 0.5 ML SYR IM ONE (09:00)
--- NOTE | 2022-10-10 10:24 | Billing Data ---
Date of Service October 10, 2022 Coding Level of Care Code 79544 Subseq Hosp Care Lvl 3
[2022-10-10] MEDS ORDERED: PANTOprazole 40 MG in SYRINGE 0 ML IV SCH (11:00)
[2022-10-10] MEDS ORDERED: METOPROLOL SUCC 50MG EXT REL TAB PO STA (12:39)
--- NOTE | 2022-10-10 13:50 | Surgery Progress Note ---
Date of Service October 10, 2022 Assessment & Plan (1) S/P aorto-bifemoral bypass surgery: Plan: Pt overall doing well postop. Pain controlled. No N/V. Taking ice chips. Tachycardic and hypertensive postop. Also seen by Dr Clarke today. Pt had been on beta marissa in the past, will add metoprolol today. Distal pulses palpable, feet warm. Continue to monitor. (2) Aortoiliac occlusive disease: Plan: Patient is now s/p aortobifemoral bypass. See above. Admission and Anticipated Discharge Date Admission Date: October 09, 2022 Subjective 57 yo m POD #1 after aortobifemoral bypass graft, seen in f/u today. Pt admits pain in abd and BL groins. Also admits "hunger pains" and fatigue. Is feeling slightly better since the NG tube was removed. No complaints of foot or leg pain. Review of Systems Review of Systems: All systems reviewed & are unremarkable except as noted in HPI & below Physical Exam Constitutional: WD/WN, vitals as above cooperative and comfortable; not in distress Respiratory: normal respiratory effort, lungs clear to auscultation Auscultation: + diminished lung sounds Cardiovascular: Rate/Rhythm: + tachycardic Vessels: posterior tibial pulses present, dorsalis pedis pulses present and radial pulses present; + abnormal peripheral pulses Extremities: normal capillary refill Gastrointestinal (Abdomen): Inspection/Auscultation: + abdominal surgical incision (post op dressing clean) Percussion/Palpation: + abdomen tender and abdomen soft Musculoskeletal: no cyanosis or clubbing, extremities motor strength 5/5 Skin: no rashes, warm and dry + incision (BL groins prevena present) Neurologic: moves all extremities and awake; no focal motor deficits and not confused Psychiatric: A+Ox3, euthymic affect Results & Data ([facility]) Vital Signs (Past 12 Hours) Vital Signs Temp Pulse Resp BP Pulse Ox O2 Del Method O2 Flow Rate 10/10/22 12:00 134 H 25 H 90 Room Air 10/10/22 11:00 135 H 32 H 92 10/10/22 11:00 150/95 H 10/10/22 10:00 131 H 21 94 10/10/22 10:00 158/91 H 10/10/22 09:00 133 H 19 94 10/10/22 09:00 177/96 H 10/10/22 08:00 129 H 30 H 92 10/10/22 08:00 167/101 H 10/10/22 07:26 126 H 30 H 91 10/10/22 07:26 160/92 H 10/10/22 07:00 125 H 28 H 90 10/10/22 07:36 Nasal Cannula 2 10/10/22 07:36 36.8 C Nasal Cannula 2 10/10/22 06:00 125 H 21 93 10/10/22 06:00 176/102 H 10/10/22 05:35 120 H 20 93 10/10/22 05:35 173/105 H 10/10/22 05:00 120 H 23 94 10/10/22 05:00 175/99 H Nasal Cannula 2 10/10/22 04:00 119 H 25 H 94 Nasal Cannula 2 10/10/22 04:00 170/103 H 10/10/22 03:00 116 H 16 98 10/10/22 03:00 169/99 H 10/10/22 02:00 125 H 24 90 10/10/22 02:00 173/88 H 10/10/22 04:00 36 C L 10/10/22 02:52 36.8 C
--- NOTE | 2022-10-10 16:58 | Electrocardiogram Report ---
Test Reason : Blood Pressure : / mmHG Vent. Rate : 133 BPM Atrial Rate : 133 BPM P-R Int : 132 ms QRS Dur : 090 ms QT Int : 296 ms P-R-T Axes : 046 025 000 degrees QTc Int : 440 ms Sinus tachycardia Minimal voltage criteria for LVH, may be normal variant T wave abnormality, consider inferior ischemia Abnormal ECG When compared with ECG of 08-JAN-2018 14:19, Vent. rate has increased BY 57 BPM T wave amplitude has decreased in Anterolateral leads Confirmed by Francisco Conway ([id number]) on 10/10/2022 4:58:20 PM Referred By: Kojo Clarke Confirmed By:Francisco Conway
[2022-10-10] MEDS: NICOTINE 21 MG/24 HR TDSY TD SCH (21:59)
[2022-10-11] MEDS: MoRPHine SULFATE 4 MG/ML 1 ML CARP\\VIAL IV PRN (00:16)
[2022-10-11] MEDS: oxyCODONE/ACETAMINOPHEN 5mg/325mg TAB PO PRN ×4 (03:49→20:15)
[2022-10-11 04:04] LABS: Basophils # (auto) 0.06 K/uL (0-0.2); Basophils % (auto) 0.4 %; Eosinophils # (auto) 0.14 K/uL (0-0.50); Eosinophils % (auto) 0.9 %; Hematocrit (blood only) 45.4 % (40.1-51.0); Hemoglobin 15.4 g/dl (14.0-18.0); Immature Granulocytes # (auto) 0.08 K/uL (0.00-0.02); Immature Granulocytes % (auto) 0.5 %; Lymphocytes # (auto) 1.43 K/uL (1.2-3.4); Lymphocytes % (auto) 8.9 %; Mean Corpuscular Hemoglobin 31.6 pg (25.0-34.0); Mean Corpuscular Hgb Conc 33.9 g/dL (32.0-36.0); Mean Platelet Volume 10.1 fL (9.4-12.4); Monocytes # (auto) 1.86 K/uL (0.24-0.82); Monocytes % (auto) 11.6 %; Neutrophils # (auto) 12.45 K/uL (1.4-6.5); Neutrophils % (auto) 77.7 %; Platelet Count 197 K/uL (130-400); RDW Coefficient of Variation 13.9 % (11.5-14.5); RDW Standard Deviation 47.4 fL (36.4-46.3); Red Blood Count 4.88 M/uL (4.63-6.08); White Blood Count 16.02 K/ul (4.8-10.8)
[2022-10-11 04:29] LABS: BUN Creatinine Ratio 17.8 (10-20); Calcium 8.4 mg/dl (8.5-10.1); Creatinine Clr Calc Pharmacy 92.6 ml/min; Est GFR (African American) 95.3 ml/min; Est GFR (Non-African American) 82.2 ml/min
[2022-10-11] MEDS: D5W AND 1/2NSS 1,000 ML IV SCH ×2 (06:00→17:12)
[2022-10-11] MEDS: LOSARTAN POTASSIUM 50 MG TAB PO SCH (06:00)
[2022-10-11] MEDS: ROSUVASTATIN CALCIUM 10 MG TAB PO SCH (08:12)
[2022-10-11] MEDS: ASPIRIN 81 MG ECTAB PO SCH (08:12)
[2022-10-11] MEDS: PANTOprazole 40 MG TAB PO SCH (08:12)
[2022-10-11] MEDS: FAMOTIDINE 20 MG TAB PO SCH (08:12)
--- NOTE | 2022-10-11 08:26 | Critical Care Progress Note ---
Date of Service October 11, 2022 Assessment & Plan (1) Aortoiliac occlusive disease: (2) Lumbar stenosis with neurogenic claudication: Plan Neuro CAM ICU: Negative Sedation/Analgesia: None. Oxycodone/acetaminophen for moderate pain, morphine PRN severe pain. Cardiac Aortoiliac Occulsive Disease: -Symptoms of claudication and numbness prior to bypass. -CTA from 06/01 demonstrating thrombosis and stenosis of left common iliac and external iliac arteries. -Patient s/p aortobifemoral bypass graft. -Perfusing well at this time. Continue to monitor. Tachycardia: -Patient has been in sinus tachycardia, heart rate 100's-120's since last evening. -BMP, CBC WNL. -?secondary to pain vs pulmonary or cardiac source since patient has been requiring supplemental O2. -Per surgical team, patient had previously been on metoprolol and will start on Metoprolol succinate 25mg qAM. -Ordered CXR, if negative would recommend obtaining CTA to r/o PE. HTN: -Restarted on his Losartan this morning. Arterial BP's have been within normal limits. -Continue to monitor. Respiratory No history of respiratory disease. Patient has been requiring 2L NC O2 supplement overnight. Ordered CXR for possible underlying source, if negative would recommend CTA to r/o PE. May be due to post procedural atelectasis. Ordered incentive spirometry. Supplemental O2 for saturations <90%. GI NG tube out, patient tolerating diet well, advance as tolerated. Continue Pantoprazole 40mg daily. Renal/Electrolytes Electrolytes, kidney function WNL. Continue to monitor. Monitor I&O's. Endo No history of diabetes or thyroid disease. Heme Hemoglobin, platelets within normal limits. Leukocytosis at 19.03, trending down to 16.02, most likely reactive. ID No signs of infection, afebrile, continue to monitor vitals. Lines/IV Access peripheral IV, R radial arterial line. DVT Prophylaxis SCDs Dispo: ICU. Admission and Anticipated Discharge Date Admission Date: October 09, 2022 Supervising Physician Co-Signing Physician Notes Dr. Hsieh was the resident-physician during care of patient. I separately evaluated patient for zamora portions of the history and the exam. I was present during the critical portion of medical decision making, and I discussed the case with the resident. I generally agree with the findings and plan except for any additions/exceptions noted. Patient seen and examined at bedside. No acute distress, no adverse events overnight He was having his breakfast at the time of examination. Denies any nausea or vomiting Says abdominal pain is fairly controlled No chest pain, no shortness of breath Denies any palpitation He denies drinking heavily at home. He says he hardly drinks alcohol. Constitutional: No acute distress HEENT: EOMI, PERRLA Respiratory system: Decreased air entry bilaterally, no wheeze, no rhonchi, positive crackles bilateral lower lobes CVS: S1-S2 positive, no murmurs or gallops, tachycardia Abdomen: Soft, mildly distended, tenderness around incision site, no rebound, decreased bowel sounds x4 Extremities: +2 pulses bilaterally radialis, +2 left dorsalis pedis, +1 right dorsalis pedis, no cyanosis, no edema, lipoma on the right lateral elbow Neuro: Awake alert oriented x3 Psych: Normal mood and affect G/U: Positive Velazquez --Prophylaxis VTE: None GI: Pantoprazole Lines: Peripheral Diet: Cardiac Plan: In/out: + 916, urine output 1400 mL Patient is still persistently tachycardic in the 130s 140s, he has been started on beta-blockers. Call the sinus tachycardia is already likely secondary to some underlying etiology. Patient's hemoglobin is stable, afebrile, pain is fairly controlled with pain medication Does complain of abdominal discomfort. Is not delirious and does not drink heavily. Chest x-ray from today does not show any significant abnormality from cardiopulmonary perspective. I will order Doppler bilateral lower extremity to make sure we are not dealing with DVT, if that is negative then I will recommend CTA chest to be done During the discussion in the rounds. Patient had emesis which was 30 minutes after he took his Toprol-XL. Given his hypertensive and tachycardic I will give him 25 mg of metoprolol titrate and continue with cardiology recommendation on 25 mg every 8 hours. Bowel regimen. Antiemetic as needed Please note the above document was generated using voice recognition software. It may contain grammatical, syntax or spelling errors.Any formal questions or concerns about the content, text or information contained within the body of this dictation should be directly addressed to the provider for clarification. Subjective Patient seen at the bedside today without any acute complaints saying he feels better now that he can eat. He states he still has some abdominal pain at times however nothing overt or bothering him. He denies any headaches, nausea, vomiting, shortness of breath, chest pain. At times he feels like he can feel his heart beating fast. Review of Systems Review of Systems: As per HPI. Physical Exam Constitutional: WD/WN, vitals as above Eyes: PERRL, conjunctivae normal, anicteric sclerae Respiratory: normal respiratory effort, lungs clear to auscultation Cardiovascular: Rate/Rhythm: regular rhythm and + tachycardic Heart Sounds: normal S1 and normal S2 2+ pedal pulse on the L, 1+ on the R. No peripheral edema. Gastrointestinal (Abdomen): normal bowel sounds, soft, nontender, no hepatosplenomegaly Skin: Mobile, mass on R lateral elbow likely representing lipoma patient states has been there for a while. Psychiatric: A+Ox3, euthymic affect Results & Data Results & Data ([facility]) Vital Signs (Past 12 Hours) Vital Signs Temp Pulse Pulse Resp BP BP BP 10/11/22 07:00 10/11/22 07:00 36.7 C 138 H 20 155/59 H 142/80 H 10/11/22 07:00 140 H 10/11/22 07:00 140 H 10/11/22 04:00 36.9 C 10/11/22 00:00 36.9 C 10/11/22 06:00 140 H 23 178/102 H 10/11/22 05:30 138 H 24 10/11/22 05:00 138 H 24 175/104 H 10/11/22 04:30 142 H 19 165/98 H 10/11/22 04:00 134 H 26 H 10/11/22 03:30 138 H 19 10/11/22 03:00 133 H 22 151/88 H 10/11/22 02:30 133 H 25 H 10/11/22 02:00 131 H 21 148/87 H 10/11/22 01:30 136 H 24 10/11/22 01:00 132 H 17 138/85 10/11/22 00:30 133 H 22 10/11/22 00:00 132 H 21 143/89 H 10/10/22 23:30 133 H 26 H 10/10/22 23:00 130 H 20 135/88 10/10/22 22:30 132 H 20 10/10/22 22:00 132 H 20 138/83 10/10/22 21:30 132 H 17 10/11/22 04:00 132 H 10/11/22 00:00 132 H 10/11/22 00:00 132 H 10/10/22 21:00 135 H 19 142/79 H 10/10/22 20:30 136 H 20 Pulse Ox O2 Del Method O2 Flow Rate 10/11/22 07:00 Nasal Cannula 2 10/11/22 07:00 91 Nasal Cannula 2 10/11/22 07:00 10/11/22 07:00 10/11/22 04:00 10/11/22 00:00 10/11/22 06:00 89 L 10/11/22 05:30 87 L 10/11/22 05:00 92 10/11/22 04:30 92 10/11/22 04:00 91 10/11/22 03:30 92 10/11/22 03:00 92 10/11/22 02:30 93 10/11/22 02:00 93 10/11/22 01:30 93 10/11/22 01:00 92 10/11/22 00:30 92 10/11/22 00:00 93 10/10/22 23:30 93 10/10/22 23:00 93 10/10/22 22:30 93 10/10/22 22:00 92 10/10/22 21:30 91 10/11/22 04:00 10/11/22 00:00 10/11/22 00:00 10/10/22 21:00 87 L 10/10/22 20:30 88 L Laboratory Results 10/11/22 03:49 10/11/22 03:49 Resident Activity Tracking Resident Involvement: Resident Care Provided Care Provided: Adult Hospital Medicine
[2022-10-11] MEDS: ONDANSETRON INJ 2 MG/ML 2 ML VIAL IV PRN (08:43)
[2022-10-11 08:50] LABS: Magnesium 2.1 mg/dl (1.7-2.4); Phosphorus 2.6 mg/dl (2.5-4.9)
[2022-10-11] MEDS ORDERED: METOPROLOL SUCC 25MG EXT REL TAB PO SCH (09:00)
[2022-10-11] MEDS ORDERED: PANTOprazole 40 MG TAB PO SCH (09:00)
[2022-10-11] MEDS ORDERED: METOPROLOL TARTRATE 25 MG TAB PO STA (09:56)
[2022-10-11] MEDS ORDERED: DOCUSATE SODIUM 100 MG CAP PO ONE (10:00)
[2022-10-11] MEDS ORDERED: SENNA 8.6 MG TAB PO ONE (10:00)
[2022-10-11] MEDS: METOCLOPRAMIDE HCL INJ 5 MG/ML 2 ML VIAL IV PRN ×2 (10:13→15:27)
--- NOTE | 2022-10-11 10:44 | Ultrasound Report ---
ULTRASOUND BILATERAL LOWER EXTREMITY VENOUS CLINICAL HISTORY: Tachycardia. Lower extremity edema. COMPARISON STUDY: No priors. TECHNIQUE: Portable real-time, grayscale, and color Doppler sonography of the deep veins of the right and left lower extremity was performed from the inguinal crease to the calf. Compression and augment ation were utilized. FINDINGS: There is no sonographic evidence of deep venous thrombosis identified in the right or left lower extremity. The common femoral, superficial femoral, and popliteal veins are patent and normally compressible bilaterally. The greater saphenous vein and the profunda femoris vein at the junction w ith the common femoral vein are clear in both legs. The visualized calf veins are patent bilaterally. IMPRESSION: There is no sonographic evidence of deep venous thrombosis identified in the right or lef t lower extremity. ACT 112: Negative or not required by law. Electronically signed by: Mj Livingston M.D. 10/11/2022 10:43 AM
--- NOTE | 2022-10-11 10:56 | Cardiology Consultation ---
Date of Consultation October 11, 2022 Assessment & Plan (1) Tachycardia: Impression: 1. Sinus Tachycardia 2. S/p aortobifemoral bypass 3. HTN 4. Dyslipidemia 5. Negative stress echo 2021, positive stress ekd which is likely false positive given quick resolution of EKG changes at rest, achieving 89% MPHR. Plan Mr. Love's tachycardia is secondary to underlying, non cardiac causes. He is not having any anginal symptoms, he did not demonstrate ischemic changes on his EKG. He had a stress test in June that did not demonstrate ischemia as well. His blood count is stable. He does not appear dehydrated. He denies significant pain. He is desaturating a bit and requiring O2. I discussed Mr. Love with Dr. Rosario and agree with the plan for CTA to rule out PE. Another consideration would be aspiration given his vomiting earlier today. He was prescribed 25 mg of metoprolol tartrate bid. Given his difficulty tolerating po, I will give him metoprolol IV q6h for now. His blood pressure remains elevated. His losartan was resumed yesterday. The metoprolol help further. He will need his blood pressure regimen further titrated after discharge. History of Present Illness Attending Physician: Kojo Clarke MD History of Present Illness Mr. Love was seen today in consultation for sinus tachycardia. He underwent an aortobifemoral bypass with Dr. Clarke on 10/09. He has maintained a sinus tachycardia since coming out of surgery with heart rates upwards of 140s. He denies any sob or chest pain. He is requiring 2L NC with a sat of 91%. He has not yet been out of bed. Per nursing, he has not been able to hold food down and has been vomiting. Allergies Allergy/AdvReac Type Severity Reaction Status Date / Time levofloxacin Allergy Severe "throat Verified 10/09/22 06:00 swelling" blueberry Allergy Unknown THROAT Verified 10/09/22 06:00 CHAVO SETH Home Medications Medication Instructions Recorded Confirmed Type aspirin 81 mg capsule 81 mg PO QAM 06/26/22 10/09/22 History calcium carbonate 300 mg (750 mg) 300 mg PO TID PRN gerd 06/26/22 10/09/22 History chewable tablet (Tums) rosuvastatin 10 mg tablet 10 mg PO QAM 08/23/22 10/09/22 History famotidine 20 mg PO DAILY 10/09/22 10/09/22 History losartan 50 mg tablet 50 mg PO DAILY 10/09/22 10/09/22 History omeprazole 20 mg capsule,delayed 20 mg PO DAILY 10/09/22 10/09/22 History release Patient History Medical History Adrenal nodule 1.3 cm left adrenal nodule, right adrenal mass GERD (gastroesophageal reflux disease) well controlled, stable per pt Hearing loss History of hypertension white coat hypertension Hyperlipemia PAD (peripheral artery disease) Spinal stenosis Surgical History History of cardiac cath 2000 - no stents-[place]; f/u PCP History of cholecystectomy History of colonoscopy 2020 History of hand surgery Left History of lumbar surgery fusion History of surgery spinal cord stimulator trial 01/21/18: Grade 1 view, MAC 3, ETT 8.0. No postop issues per anesthesia progress note. Pt reports remains in place-NOT IS USE PAST FEW YRS History of tooth extraction S/P aorto-bifemoral bypass surgery Family History Father No problems noted. Mother Family history of diabetes mellitus Social History Smoking Status: Current every day smoker Cigarettes Per Day: 30; Second Hand Exposure: No; Do You Dip or Chew Tobacco: No (quit-years ago); Tobacco Cessation Education Requested by Patient: No Hx Alcohol Use: Yes Hx Substance Use: No Preferred Language: Croatian Communication Ability: Effective Director Financial Systems Required: No Beliefs That Will Affect Care: None marital status: Single Current Living Situation: Significant Other current occupational status: disabled Other Information That Helps Us Care for You: No Feels Safe at Home: Yes Safety Concerns: Feels Safe At This Time Assistive Devices: None Review of Systems Review of Systems: All systems reviewed & are unremarkable except as noted in HPI & below Physical Exam Constitutional: WD/WN, vitals as above Respiratory: normal respiratory effort, lungs clear to auscultation Cardiovascular: RRR, no murmur, no edema Skin: no rashes, warm and dry Neurologic: moves all extremities and awake Psychiatric: A+Ox3, euthymic affect Results & Data ([facility]) Vital Signs (Past 12 Hours) Vital Signs Temp Pulse Pulse Resp BP BP BP 10/11/22 10:04 139 H 22 10/11/22 10:00 135 H 21 10/11/22 10:00 182/104 H 10/11/22 09:55 175/103 H 10/11/22 09:55 134 H 22 10/11/22 09:50 136 H 23 10/11/22 09:50 178/113 H 10/11/22 09:45 154/101 H 10/11/22 09:45 131 H 31 H 10/11/22 09:40 136 H 22 10/11/22 09:40 162/103 H 10/11/22 09:35 137 H 30 H 10/11/22 09:35 151/115 H 10/11/22 09:30 140 H 24 10/11/22 09:30 146/102 H 10/11/22 09:25 136 H 22 10/11/22 09:25 170/113 H 10/11/22 09:20 166/114 H 10/11/22 09:20 136 H 21 10/11/22 09:15 153/101 H 10/11/22 09:15 137 H 21 10/11/22 09:10 134 H 21 10/11/22 09:10 157/102 H 10/11/22 09:09 157/98 H 10/11/22 09:09 135 H 22 10/11/22 09:07 136 H 23 10/11/22 09:07 155/96 H 10/11/22 09:06 137 H 23 10/11/22 09:06 145/98 H 10/11/22 09:05 137 H 23 10/11/22 09:05 153/93 H 10/11/22 09:01 181/119 H 10/11/22 09:01 143 H 23 10/11/22 09:00 143 H 30 H 10/11/22 08:30 143 H 30 H 10/11/22 08:00 139 H 23 10/11/22 08:00 159/97 H 10/11/22 07:30 136 H 26 H 10/11/22 07:00 137 H 23 10/11/22 07:00 155/98 H 10/11/22 08:00 140 H 10/11/22 07:00 10/11/22 07:00 36.7 C 138 H 20 155/59 H 142/80 H 10/11/22 07:00 140 H 10/11/22 07:00 140 H 10/11/22 04:00 36.9 C 10/11/22 00:00 36.9 C 10/11/22 06:00 140 H 23 178/102 H 10/11/22 05:30 138 H 24 10/11/22 05:00 138 H 24 175/104 H 10/11/22 04:30 142 H 19 165/98 H 10/11/22 04:00 134 H 26 H 10/11/22 03:30 138 H 19 10/11/22 03:00 133 H 22 151/88 H 10/11/22 02:30 133 H 25 H 10/11/22 02:00 131 H 21 148/87 H 10/11/22 01:30 136 H 24 10/11/22 01:00 132 H 17 138/85 10/11/22 00:30 133 H 22 10/11/22 00:00 132 H 21 143/89 H 10/10/22 23:30 133 H 26 H 10/10/22 23:00 130 H 20 135/88 10/11/22 04:00 132 H 10/11/22 00:00 132 H 10/11/22 00:00 132 H Pulse Ox O2 Del Method O2 Flow Rate 10/11/22 10:04 91 10/11/22 10:00 90 10/11/22 10:00 10/11/22 09:55 10/11/22 09:55 90 10/11/22 09:50 90 10/11/22 09:50 10/11/22 09:45 10/11/22 09:45 91 10/11/22 09:40 91 10/11/22 09:40 10/11/22 09:35 91 10/11/22 09:35 10/11/22 09:30 90 10/11/22 09:30 10/11/22 09:25 91 10/11/22 09:25 10/11/22 09:20 10/11/22 09:20 91 10/11/22 09:15 10/11/22 09:15 91 10/11/22 09:10 91 10/11/22 09:10 10/11/22 09:09 10/11/22 09:09 91 10/11/22 09:07 91 10/11/22 09:07 10/11/22 09:06 91 10/11/22 09:06 10/11/22 09:05 90 10/11/22 09:05 10/11/22 09:01 10/11/22 09:01 90 10/11/22 09:00 90 10/11/22 08:30 87 L 10/11/22 08:00 89 L 10/11/22 08:00 10/11/22 07:30 91 10/11/22 07:00 90 10/11/22 07:00 10/11/22 08:00 10/11/22 07:00 Nasal Cannula 2 10/11/22 07:00 91 Nasal Cannula 2 10/11/22 07:00 10/11/22 07:00 10/11/22 04:00 10/11/22 00:00 10/11/22 06:00 89 L 10/11/22 05:30 87 L 10/11/22 05:00 92 10/11/22 04:30 92 10/11/22 04:00 91 10/11/22 03:30 92 10/11/22 03:00 92 10/11/22 02:30 93 10/11/22 02:00 93 10/11/22 01:30 93 10/11/22 01:00 92 10/11/22 00:30 92 10/11/22 00:00 93 10/10/22 23:30 93 10/10/22 23:00 93 10/11/22 04:00 10/11/22 00:00 10/11/22 00:00
--- NOTE | 2022-10-11 13:04 | Billing Data ---
Date of Service October 11, 2022 Coding Level of Care Code 68349 Subseq Hosp Care Lvl 3
--- NOTE | 2022-10-11 13:24 | XRay Report ---
XR chest 1V portable CLINICAL HISTORY: Persistent tachycardia TECHNIQUE: Single frontal radiograph of the chest was obtained. Comparison: Comparison is made to chest radiograph 07/06/2022 FINDINGS: A spinal stimulator is seen. The cardiomediastinal silhouette is normal. Lungs are underinflated but clear. No evidence of pleural effusion or pneumothorax. IMPRESSION: No acute chest disease. ACT 112: Negative or not required by law. Electronically signed by: Alistair Aguilar M.D. 10/11/2022 1:22 PM
[2022-10-11] MEDS ORDERED: METOPROLOL TARTRATE 25 MG TAB PO SCH (14:00)
[2022-10-11] MEDS ORDERED: PANTOprazole 40 MG in SYRINGE 0 ML IV ONE (16:00)
[2022-10-11] MEDS ORDERED: OPTIRAY 320 500ml IV ONE (16:44)
[2022-10-11] MEDS ORDERED: SODIUM CHLORIDE 0.9% 1000ML 250 ML IV ONE (17:03)
[2022-10-11] MEDS: METOPROLOL TARTRATE 1 MG/ML VIAL IV SCH (17:13)
--- NOTE | 2022-10-11 18:47 | CT Scan Report ---
CT ANGIOGRAPHY OF THE CHEST, PULMONARY EMBOLUS PROTOCOL CLINICAL HISTORY: Shortness of breath and chest pain. Status post aortobifemoral bypass on September 252021. Evaluate for pulmonary embolus. COMPARISON STUDY: Chest radiograph July 06, 2022 and October 11, 2022. TECHNIQUE: Following IV administration of 90 mL of Optiray, helical axial images of the chest were ob tained utilizing the pulmonary embolus protocol. Maximal intensity projections and sagittal and prosper nal reformats were viewed on an independent 3D workstation. IV contrast was administered without com plication. Automated exposure control was utilized for the study. A dose lowering technique was uti lized adhering to the principles of ALARA. CT DOSE: 545.06 mGycm FINDINGS: Intracanalicular electrodes are incidentally noted. No central pulmonary emboli are identi fied. The remainder of the pulmonary arteries are suboptimally assessed due to respiratory motion and suboptimal vascular opacification. There is no thoracic aortic dissection. Moderate plaque of the th oracic aorta is noted. There is mild cardiomegaly. No pericardial effusion is present. No thoracic ly mphadenopathy is present. The distal esophagus is slightly dilated and mildly fluid-filled. There is no pneumothorax. Lung volumes are diminished. Lungs are suboptimally assessed due to respiratory anny on. There are secretions within the bilateral lower lobe segmental bronchi, greater on the left. Mode rate subpleural airspace opacity within the lower lobes is noted. There is minimal subpleural opacity within the dependent aspect of the upper lobes. Moderate emphysema is present. Visualized portions o f the upper abdomen demonstrate a small amount of pneumoperitoneum. Hepatic steatosis is noted. IMPRESSION: 1. No central pulmonary emboli identified. Remainder of pulmonary arteries suboptimally assessed due to artifact, as described above. 2. Moderate bilateral lower lobe airspace opacities. Given low lung volumes, this could reflect atele ctasis. However, pneumonia or aspiration pneumonitis could appear similar given secretions within the airways. 3. Emphysema. 4. Pneumoperitoneum, likely postsurgical. ACT 112: Negative or not required by law. Electronically signed by: Raji Garcia M.D. 10/11/2022 6:44 PM
[2022-10-11] MEDS: CALCIUM CARBONATE 500 MG CHEWABLE TAB PO PRN (20:16)
[2022-10-11] MEDS: NICOTINE 21 MG/24 HR TDSY TD SCH (20:17)
[2022-10-11] MEDS: DOCUSATE SODIUM 100 MG CAP PO SCH (20:17)
[2022-10-12] MEDS: METOPROLOL TARTRATE 1 MG/ML VIAL IV SCH ×2 (00:35→06:28)
[2022-10-12] MEDS: METOCLOPRAMIDE HCL INJ 5 MG/ML 2 ML VIAL IV PRN (03:40)
[2022-10-12] MEDS: D5W AND 1/2NSS 1,000 ML IV SCH ×2 (03:40→10:45)
[2022-10-12 04:56] LABS: Basophils # (auto) 0.03 K/uL (0-0.2); Basophils % (auto) 0.2 %; Eosinophils # (auto) 0.19 K/uL (0-0.50); Eosinophils % (auto) 1.2 %; Hematocrit (blood only) 41.9 % (40.1-51.0); Hemoglobin 14.3 g/dl (14.0-18.0); Immature Granulocytes # (auto) 0.12 K/uL (0.00-0.02); Immature Granulocytes % (auto) 0.7 %; Lymphocytes # (auto) 1.51 K/uL (1.2-3.4); Lymphocytes % (auto) 9.4 %; Mean Corpuscular Hemoglobin 31.6 pg (25.0-34.0); Mean Corpuscular Hgb Conc 34.1 g/dL (32.0-36.0); Mean Corpuscular Volume 92.7 fL (80.0-100.0); Mean Platelet Volume 10.4 fL (9.4-12.4); Monocytes # (auto) 1.57 K/uL (0.24-0.82); Monocytes % (auto) 9.7 %; Neutrophils # (auto) 12.72 K/uL (1.4-6.5); Neutrophils % (auto) 78.8 %; Platelet Count 196 K/uL (130-400); RDW Coefficient of Variation 13.9 % (11.5-14.5); RDW Standard Deviation 47.3 fL (36.4-46.3); Red Blood Count 4.52 M/uL (4.63-6.08); White Blood Count 16.14 K/ul (4.8-10.8)
[2022-10-12 05:18] LABS: Calcium 8.3 mg/dl (8.5-10.1); Creatinine Clr Calc Pharmacy 100.5 ml/min; Est GFR (African American) 105.2 ml/min; Est GFR (Non-African American) 90.8 ml/min; Potassium 3.7 mmol/L (3.5-5.1)
--- NOTE | 2022-10-12 07:35 | Critical Care Progress Note ---
Date of Service October 12, 2022 Assessment & Plan (1) Aortoiliac occlusive disease: (2) Lumbar stenosis with neurogenic claudication: Plan Neuro CAM ICU: Negative Sedation/Analgesia: None. Oxycodone/acetaminophen for moderate pain, morphine PRN severe pain. Cardiac Aortoiliac Occulsive Disease: -Symptoms of claudication and numbness prior to bypass. -CTA from 06/01 demonstrating thrombosis and stenosis of left common iliac and external iliac arteries. -Patient s/p aortobifemoral bypass graft. -Perfusing well at this time. Continue to monitor. Tachycardia: -Patient has been in sinus tachycardia, heart rate 100's-120's since last evening. -BMP, CBC WNL. -?secondary to pain vs pulmonary or cardiac source since patient has been requiring supplemental O2. -CXR negative for acute process, CTA w/o b/l PE, some evidence of atelectasis. -Cardiology consulted - appreciate recs, was started on Metoprolol 25mg however difficulty tolerating PO, on 5mg IV Q6h. -Heart rates have been in 80's-90's. HTN: -Continue home Losartan, metoprolol tartrate as above. -Continue to monitor. Respiratory No history of respiratory disease. Patient has been requiring 2L NC O2 supplement overnight. CXR and CTA findings as above, most likely post-procedural atelectasis. Ordered incentive spirometry. Supplemental O2 for saturations <90%. GI NG tube out, patient with one episode of emesis, NPO currently. Passing gas, hopefully will be able to tolerate oral intake. Continue Pantoprazole 40mg daily, famotidine 20mg daily. Renal/Electrolytes Electrolytes, kidney function WNL. Continue to monitor. Monitor I&O's. Endo No history of diabetes or thyroid disease. Heme Hemoglobin, platelets within normal limits. Leukocytosis at 19.03, stable at 16, most likely reactive. ID No signs of infection, afebrile, continue to monitor vitals. Lines/IV Access peripheral IV. DVT Prophylaxis SCDs, home ASA 81mg restarted. Dispo: ICU, stable for downgrade at this time. Admission and Anticipated Discharge Date Admission Date: October 09, 2022 Supervising Physician Co-Signing Physician Notes Dr. Hsieh was the resident-physician during care of patient. I separately evaluated patient for zamora portions of the history and the exam. I was present during the critical portion of medical decision making, and I discussed the case with the resident. I generally agree with the findings and plan except for any additions/exceptions noted. Patient seen and examined at bedside. No acute distress, no adverse events overnight. Overall he says he feels better. Still occasional nausea but has not been throwing up Positive flatulence. No bowel movement yet Denies any chest pain, no shortness of breath, no headache Constitutional: No acute distress HEENT: EOMI, PERRLA Respiratory system: Decreased air entry bilaterally, no wheeze, no rhonchi, positive crackles bilateral lower lobes CVS: S1-S2 positive, no murmurs or gallops, Abdomen:Soft, mildly distended, non tender, no rebound, decreased bowel sounds x4 Extremities: +2 pulses bilaterally radialis,+2 left dorsalis pedis, +1 right dorsalis pedis, no cyanosis, no edema,lipoma on the right lateral elbow Neuro: Awake alert oriented x3 Psych: Normal mood and affect G/U:Positive Velazquez --Prophylaxis VTE: None GI: Pantoprazole and Pepcid Lines: Peripheral Diet: Cardiac Plan: In/out: +2 L, urine output 975 CTA chest from 10/11/2022 did not show any signs of pulmonary embolism. He does have bilateral lower lobe atelectasis Continue with incentive spirometry Tachycardia is controlled by IV metoprolol. Transition to p.o. once he is able to tolerate diet Hyponatremia is most likely from D5 half NS that he is getting. Continue to monitor Disposition as per vascular surgery Please note the above document was generated using voice recognition software. It may contain grammatical, syntax or spelling errors.Any formal questions or concerns about the content, text or information contained within the body of this dictation should be directly addressed to the provider for clarification. Subjective Patient seen at the bedside this morning saying he feels fine. He endorses he still has a little bit of nausea but no more episodes of emesis. He states he is passing gas but has not had a bowel movement yet. He denies any shortness of breath, chest pain, headaches. He states he would like to go today if possible and we explained to him he would need to be able to show he can keep food and medications down before any discharge. Review of Systems Review of Systems: As per HPI. Physical Exam Constitutional: WD/WN, vitals as above Eyes: PERRL, conjunctivae normal, anicteric sclerae Respiratory: normal respiratory effort, lungs clear to auscultation Cardiovascular: Rate/Rhythm: regular rhythm and + tachycardic Heart Sounds: normal S1 and normal S2 Gastrointestinal (Abdomen): Midline packing dry and without any evidence of blood. BS+, obese habitus, soft, mildly tender to palpation. Skin: R elbow lipoma. Psychiatric: A+Ox3, euthymic affect Results & Data Results & Data ([facility]) Vital Signs (Past 12 Hours) Vital Signs Pulse Resp BP Pulse Ox O2 Del Method O2 Flow Rate 10/12/22 06:28 88 137/101 H 10/12/22 05:00 99 H 16 131/94 90 10/12/22 04:00 106 H 20 151/101 H 87 L 10/12/22 03:00 100 H 20 128/85 91 10/12/22 02:00 100 H 14 127/80 91 10/12/22 01:00 100 H 17 159/101 H 90 10/12/22 00:01 102 H 23 115/57 L 91 10/12/22 00:35 103 H 159/101 H 10/11/22 22:00 111 H 15 140/98 88 L Nasal Cannula 10/11/22 21:00 118 H 22 141/87 H 88 L Nasal Cannula 2 10/11/22 20:00 127 H 25 H 156/94 H 87 L Nasal Cannula 2 10/11/22 19:30 Nasal Cannula 2 10/11/22 23:25 107 H 10/11/22 23:00 108 H 14 127/89 92 Nasal Cannula 2 Laboratory Results 10/12/22 04:23 10/12/22 04:23 Resident Activity Tracking Resident Involvement: Resident Care Provided Care Provided: Adult Hospital Medicine
[2022-10-12] MEDS: DOCUSATE SODIUM 100 MG CAP PO SCH (09:00)
[2022-10-12] MEDS: PANTOprazole 40 MG TAB PO SCH (09:00)
[2022-10-12] MEDS ORDERED: SENNA 8.6 MG TAB PO SCH (09:00)
[2022-10-12] MEDS: FAMOTIDINE 20 MG TAB PO SCH (09:00)
[2022-10-12] MEDS: LOSARTAN POTASSIUM 50 MG TAB PO SCH (09:00)
[2022-10-12] MEDS: ROSUVASTATIN CALCIUM 10 MG TAB PO SCH (09:00)
[2022-10-12] MEDS: ASPIRIN 81 MG ECTAB PO SCH (09:00)
--- NOTE | 2022-10-12 09:14 | Surgery Progress Note ---
Date of Service October 12, 2022 Assessment & Plan (1) S/P aorto-bifemoral bypass surgery: Plan: Pt POD #3 after aortobifemoral bypass, doing well post op. Discussed with Tricia. OOB to chair with assistance as tolerated. Advance diet. Remains hypertensive and intermittently tachycardic, currently on lopressor IV. Continue to monitor Patient's condition improved during the day. O2 sats now 95 on room air, ambulated in room, tolerating a regular diet without nausea or vomiting. Will D/C today. Admission and Anticipated Discharge Date Admission Date: October 09, 2022 Subjective 57 yo m POD #3 after Aortobifemoral bypass graft, seen in f/u today. Pt states having "hunger pains" and incisional pain. Did have 1 episode of vomiting yesterday, none since, but still on ice chips only. Passing copious flatus, but no BM. No new foot or leg pain, no chest pain, or SOB. Would like to get OOB. Review of Systems Review of Systems: All systems reviewed & are unremarkable except as noted in HPI & below Physical Exam Constitutional: WD/WN, vitals as above cooperative and comfortable; not in distress Respiratory: normal respiratory effort, lungs clear to auscultation Auscultation: + diminished lung sounds Cardiovascular: Rate/Rhythm: regular rate and regular rhythm Vessels: posterior tibial pulses present, dorsalis pedis pulses present and radial pulses present; + abnormal peripheral pulses Extremities: normal capillary refill Gastrointestinal (Abdomen): Inspection/Auscultation: + abdominal surgical incision (ventral incision C/D/I, softly distended and tender) Percussion/Palpation: + abdomen tender and abdomen soft Musculoskeletal: no cyanosis or clubbing, extremities motor strength 5/5 Skin: no rashes, warm and dry + incision (BL groins prevena present) Neurologic: moves all extremities and awake; no focal motor deficits and not confused Psychiatric: A+Ox3, euthymic affect Results & Data ([facility]) Vital Signs (Past 12 Hours) Vital Signs Pulse Resp BP Pulse Ox O2 Del Method O2 Flow Rate 10/12/22 06:28 88 137/101 H 10/12/22 05:00 99 H 16 131/94 90 10/12/22 04:00 106 H 20 151/101 H 87 L 10/12/22 03:00 100 H 20 128/85 91 10/12/22 02:00 100 H 14 127/80 91 10/12/22 01:00 100 H 17 159/101 H 90 10/12/22 00:01 102 H 23 115/57 L 91 10/12/22 00:35 103 H 159/101 H 10/11/22 22:00 111 H 15 140/98 88 L Nasal Cannula 10/11/22 23:25 107 H 10/11/22 23:00 108 H 14 127/89 92 Nasal Cannula 2
--- NOTE | 2022-10-12 09:25 | Cardiology Progress Note ---
Date of Service October 12, 2022 Assessment & Plan Admission and Anticipated Discharge Date Admission Date: October 09, 2022 Subjective He still has some nausea this morning. He denies any chest pain or chest pressure he has some incisional discomfort he denies any shortness of breath. He is unaware of any palpitations or feeling his heart racing. He denies any lightheadedness or dizziness. He does have significant sputum production. Results & Data ([facility]) Vital Signs (Past 12 Hours) Vital Signs Pulse Resp BP Pulse Ox O2 Del Method O2 Flow Rate 10/12/22 06:28 88 137/101 H 10/12/22 05:00 99 H 16 131/94 90 10/12/22 04:00 106 H 20 151/101 H 87 L 10/12/22 03:00 100 H 20 128/85 91 10/12/22 02:00 100 H 14 127/80 91 10/12/22 01:00 100 H 17 159/101 H 90 10/12/22 00:01 102 H 23 115/57 L 91 10/12/22 00:35 103 H 159/101 H 10/11/22 22:00 111 H 15 140/98 88 L Nasal Cannula 10/11/22 23:25 107 H 10/11/22 23:00 108 H 14 127/89 92 Nasal Cannula 2 is awake alert and oriented x3 HEENT: 2+ carotid upstrokes Lungs: Markedly decreased breath sounds no rales rhonchi or wheezing Heart: Regular rate and rhythm no appreciable murmurs rubs or gallops Abdomen: Decreased bowel sounds tender over the incision site nondistended Extremities: No clubbing cyanosis or edema; in fact he has decreased skin turgor Psychiatric his affect appeared appropriate Impression: 1. Sinus Tachycardia 2. S/p aortobifemoral bypass 3. HTN 4. Dyslipidemia 5. Negative stress echo 2021, positive stress ekg which is likely false positive given quick resolution of EKG changes at rest, achieving 89% MPHR. He does have significant sputum production the question is whether this is a function of chronic bronchitis as he smoked up until he had his procedure or whether he may have aspirated during the procedure. His heart rate is much improved I would increase his metoprolol to 7.5 milligrams IV every 6. He had some nausea this morning. Once he is tolerating p.o. without any nausea he can be switched over to 50 mg metoprolol twice daily. He should continue with his losartan as well given its cardiovascular benefits. He should be on statin therapy, high intensity. We discussed incentive spirometry. I would also reduce his IV fluids to 75 cc an hour so that we do not give him excessive amounts of volume. I would encourage oral intake of fluids. He does appear slightly prerenal on his labs this morning but his renal function is remaining stable. He does have a nicotine patch on. He denies any symptoms of withdrawal but this also could be contributing to his heart rate. His carotid upstrokes feel brisk and there is nothing to suggest LV dysfunction.
--- NOTE | 2022-10-12 09:30 | Billing Data ---
Date of Service October 12, 2022 Coding Level of Care Code 44373 Subseq Hosp Care Lvl 2
[2022-10-12] MEDS ORDERED: METOPROLOL TARTRATE 1 MG/ML VIAL IV SCH (12:00)
[2022-10-12] MEDS ORDERED: CALCIUM CARBONATE 500 MG CHEWABLE TAB PO PRN (12:44)
[2022-10-12] MEDS: CALCIUM CARBONATE 500 MG CHEWABLE TAB PO PRN (13:06)
[2022-10-12] MEDS ORDERED: POLYETHYLENE (MIRALAX) 17 GM PACK PO PRN (15:06)
[2022-10-12] MEDS ORDERED: POLYETHYLENE (MIRALAX) 17 GM PACK ONE (15:09)
--- NOTE | 2022-10-15 09:38 | Discharge Summary ---
Date of Service October 15, 2022 Admission HPI Per Admitting Provider Mr. Hasmukh Love is a very pleasant 56-year-old gentleman, who described a several year history of pain with ambulation to the bilateral legs. This is worse on the left than on the right. He describes that over the years this has become progressive. He has some pain in his thighs and his calves. He is only at this time able to walk from proximally the very short distance of the office to the parking lot (less than 100 yards) prior to needing to stop because of pain. He also describes pain in his bilateral feet that awakens him from sleep at night. He is only able to get a couple hours of sleep before he is awoken. He does describe some symptoms that sound like they are consistent with some sciatic leg pain; however, certainly some of his descriptions of his pain sound as though they are ischemic in nature. He describes cramping of his bilateral feet. When he gets up at night he will sometimes tingle his feet off the bed. Other times, he will get out of bed and get some ibuprofen and go and sit and drink a cup of coffee, and he feels that this helps with his symptoms. He has had no wounds or discoloration of bilateral feet. He had been seen for these symptoms at [facility] and a lower extremity arterial duplex was performed today that was notable for quite extensive disease. Thus, he was referred over to our clinic. His CT angiogram shows a large amount of thrombus within the distal aorta causing a significant narrowing. There is also occlusion of his left common and external iliac artery reconstitution of the femoral artery on the left side. There is also a short occlusion of the right superficial femoral artery with reconstitution of the distal artery at the adductor hiatus. Admission Exam Per Admitting Provider He is well appeari ng, well nourished , in no acute dist ress. He is awake , alert, responds to questions appro priately. He is b reathing comfortab ly on room air. Hi s lungs are clear. His heart has a RRR. His bilatera l radial pulses ar e palpable. 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 He kelly s no wounds to the bilateral fingers . His abdomen is soft, nontender, n ondistended with n o palpable pulsati le abdominal christopher s. His right femo ral pulse is faint ly palpable. This was confirmed to be multiphasic wit h Doppler insonati on. He has nonpal pable left femoral pulse. There is a weak Doppler sig nal over the left femoral artery. H e has monophasic d orsalis pedis and posterior tibial s ignals bilaterally . His feet do not display any darke penny discoloration or wounds. He alexander s describe some ch ronic numbness to the bilateral feet , which is unchang ed. He is motor i ntact to the [facility]. Principal Diagnosis 1. s/p aortobifemoral bypass graft 2. Severe aortoiliac occlusive disease with claudication Discharge Exam Constitutional WD/WN, vitals as above cooperative and comfortable; not in distress Respiratory normal respiratory effort, lungs clear to auscultation Auscultation: + diminished lung sounds Cardiovascular Rate/Rhythm: regular rate, regular rhythm and + tachycardic Vessels: posterior tibial pulses present, dorsalis pedis pulses present and radial pulses present; + abnormal peripheral pulses Extremities: normal capillary refill Gastrointestinal (Abdomen) Inspection/Auscultation: + abdominal surgical incision (ventral incision C/D/I, softly distended and tender) Percussion/Palpation: + abdomen tender and abdomen soft Musculoskeletal no cyanosis or clubbing, extremities motor strength 5/5 Skin no rashes, warm and dry + incision (BL groins prevena present) Neurologic moves all extremities and awake; no focal motor deficits and not confused Psychiatric A+Ox3, euthymic affect Discharge Data Allergies Allergy/AdvReac Type Severity Reaction Status Date / Time levofloxacin Allergy Severe "throat Verified 10/09/22 06:00 swelling" blueberry Allergy Unknown THROAT Verified 10/09/22 06:00 CHAVO SETH Consultations 10/09/22 13:09 Consult Mash Preparatory Operator Routine 10/11/22 07:35 Consult Cardiology Routine Procedures Performed Operation Date: 10/09/22 08:00 Actual Procedures p Aortobifemoral Bypass Graft(Not Applicable) - Kooj Clarke MD Ordered Studies 10/11/22 09:33 US venous doppler LE BI Stat 10/11/22 15:34 CT angio chest PE protocol Routine Hospital Course (1) S/P aorto-bifemoral bypass surgery: Pt POD #3 after aortobifemoral bypass, doing well post op. Discussed with Tricia. OOB to chair with assistance as tolerated. Advance diet. Remains hypertensive and intermittently tachycardic, currently on lopressor IV. Continue to monitor Patient's condition improved during the day. O2 sats now 95 on room air, ambulated in room, tolerating a regular diet without nausea or vomiting. Will D/C today. Total Time Total Time Spent Total Time Spent (In Minutes): 0 Discharge Plan Discharge Items Patient Disposition: Home - Self-Care Reason For Visit: Aortoiliac Occlusive Disease Discharge Diagnosis: Aortoiliac occlusive disease Activity: Per Instructions section Non-emergency contact: Surgeon Call non-emergency contact if: your temperature is above 101.5, your wound has increased redness, your wound has increased drainage and your wound pain has increased Follow-up/Referrals: Dre Mallory DO [Physician] - (Call for a follow up appointment) Maylin Simpson PA-C [Primary Care Provider] - Kojo Clarke MD [Physician] - Diet: Heart Healthy Addtl Attending Provider Instructions: ACTIVITY RECOMMENDATIONS: Keep incisions dry Can remove groin dressings on saturday or sooner if suction is lost. Replace with small dressings if any drainage SPECIAL CARE INSTRUCTIONS: Call your doctor if: * Temperature above 101 degrees * Pain not relieved by pain medicine ordered * There is increased drainage or redness from any incision * You have any unanswered questions or concerns. Call [phone] to schedule a follow up appointment if one not already scheduled. Pending Studies at Discharge: No Stand-Alone Forms: My [facility] [employer], Smoking Cessation Medications and DC Order Prescriptions: New oxycodone-acetaminophen [Percocet] 5-325 mg tablet 1 tab PO Q4H PRN (Reason: pain) Qty: 30 0RF metoprolol succinate 50 mg tablet extended release 24 hr 50 mg PO DAILY Qty: 30 3RF Continued aspirin 81 mg Capsule 81 mg PO QAM calcium carbonate [Tums] 300 mg (750 mg) Tablet,Chewable 300 mg PO TID PRN (Reason: gerd) rosuvastatin 10 mg Tablet 10 mg PO QAM famotidine 20 mg PO DAILY omeprazole 20 mg Capsule,Delayed Release(Dr/Ec) 20 mg PO DAILY losartan 50 mg Tablet 50 mg PO DAILY Discharge Orders: Discharge Order (Routine); Ordered 10/12/22 Ordered By: Kojo Clarke Admission Data Admit Date/Time: 10/09/22 13:09 Attending Provider: Kojo Clarke Admit Provider: Kojo Clarke Primary Care Provider: Maylin Simpson Other Providers: Mj Ferrera ; Cordell Santiago ; Francisco Gerber ; Wesley Ngo ; Ky Sow ; Elkin Alcala ; Janeth Gastelum ; Pablo Day ; Vannessa Ty ; Dre Mallory Other Interventions: Discharge Summary Assessment (RN) Last Done: 10/12/22 16:17
--- NOTE | 2022-10-26 12:38 | Operative Report ---
Post Operative Report Pre & Post Diagnosis Operation Date: 10/09/22 08:00 Pre-Op Diagnosis: Aortoiliac Occlusive Disease Post-Op Diagnosis: Aortoiliac Occlusive Disease I identified the patient and participated in the time-out.: Yes Procedure Operation Date: 10/09/22 08:00 Actual Procedures p Aortobifemoral Bypass Graft(Not Applicable) - Kojo Clarke MD Surgeon Kojo Clarke MD [employer] Hand Solomon,PAC Estimated Blood Loss 250 Findings Consistent with Post-Op Diagnosis Specimens None Anesthesia Type General Complications none Disposition Accompanied Patient To Recovery: No Disposition: Recovery Room Indications This is a 57-year-old gentleman with severe claudication of the lower extremities. He was found to have severe aortoiliac occlusive disease. Aortobifemoral bypass was recommended. I have discussed the risks options and benefits of the procedure with the patient. The patient understands the risks options and benefits and agrees to the procedure. Description of Procedure The patient was taken the operating placed supine position. After general anesthesia was accomplished the abdomen was prepped and draped in a sterile manner. A timeout was performed and the patient was identified. A longitudinal groin incision was made on the abdomen extending from the xiphoid down to just below the umbilicus. The fascia in the midline was entered. The peritoneum was then incised and the peritoneal cavity opened. Quick inspection showed no gross pathology. The bowels were retracted to the right. The stomach and transverse colon and omentum was packed upward into the wound. The self-retaining retractors were then placed in the abdomen. The retroperitoneum was opened exposing the aorta from just below the renal arteries to just below the inferior mesenteric artery. There is a good pulse down to just below the inferior mesenteric artery. At that point bilateral groin incisions were made. Both common femoral arteries were isolated. They were fairly soft and usable for anastomosis. Patient was heparinized at that time. A 16 x 8 propatent bifurcated graft was brought to the operative field. The aorta was then clamped proximal distally just below the renal arteries and just below the inferior mesenteric artery. Longitudinal arteriotomy was then made. There was a small amount of mural thrombus which was removed. The shaft of the graft was then beveled and an end-to-side anastomosis was accomplished between the graft and the abdominal aorta using a 3-0 Prolene suture in usual vascular fashion. Prior to completing the closure backbleeding and forward bleeding was allowed to occur. Final few sutures in place and securely tied. Clamps were then placed on the limbs. The aorta was unclamped. Added hemostasis was seen of the suture lines. Next tunnels were then made to both groins in the retroperitoneal fashion. The appropriate limbs were passed to each groin. The right groin was addressed first. The common profunda and superficial femoral arteries were clamped. Longitudinal arteriotomy was then made on the common femoral artery. The graft was trimmed and beveled the appropriate length and an end-to-side anastomosis was accomplished between the right limb of the graft and the common femoral artery using a 5-0 Prolene suture in the usual vascular fashion. Prior to completing the closure backbleeding and forward bleeding was allowed to occur. The final few sutures were then placed and securely tied. Clamps then gradually removed. Excellent flow was seen distally in the superficial femoral profundofemoral arteries. Adequate stasis was noted of the suture line. Next the left common femoral superficial profundofemoral arteries were clamped. A longitudinal arteriotomy was then performed. The left limb graft was then trimmed and beveled appropriate fashion at the side anastomosis was accomplished between the graft and the common femoral artery again using a 5-0 Prolene suture in usual vascular fashion. Prior to completing this closure backbleeding and forward bleeding was allowed to occur. The final few sutures were then placed and securely tied. Clamps and removed. Excellent flow was seen to the superficial profundofemoral artery. Anastomosis appeared to be hemostatic. At that point the heparin given prior to clamp and aorta was reversed with protamine. The retroperitoneum was closed over the graft using a running 3-0 Vicryl suture. The fascial layers were closed using a double-stranded Prolene suture. [place] were used for the skin. The abdominal graft and groins were irrigated with antibiotic solution prior to closure. Both groins had adequate hemostasis noted. They are both then closed with a running 2-0 Vicryl for the femoral sheath 3-0 Vicryl for the subcutaneous tissue and woody for the skin. Sterile dressings were applied to abdominal wound. Prevena dressings were applied to both groins.The patient left the operation room in satisfactory condition and tolerated the procedure well. All needle and sponge counts were correct at the end of the procedure. Sophia Joiner Pac assisted due to lack of resident availability and was n ecessary for positioning, draping, retraction, wound closure deep layers, subcutaneous tissue, and skin closure and was necessary for assisting with the case. I attest to the content of the Intraoperative Record and any orders documented therein. Any exceptions are noted below.
== END 2022-10-12 18:00 | disposition home or self-care (01) | DRG 272 ==
LOC: ASU 05:35 → 1E 13:09

== ENCOUNTER 2024-05-05 08:17 | Inpatient (IN) ==
--- NOTE | 2024-03-31 08:29 | PAT Medication Instructions ---
Medication Instructions Date of Service March 31, 2024 Home Medications Medication Instructions Recorded oxycodone-acetaminophen 5 mg-325 1 tab PO Q4H PRN pain #30 tabs 11/18/22 mg tablet (Percocet) aspirin 81 mg capsule 81 mg PO QAM calcium carbonate (Tums) 300 mg PO TID PRN gerd rosuvastatin 10 mg tablet 10 mg PO QAM losartan 50 mg tablet 50 mg PO QAM omeprazole 20 mg capsule,delayed release 20 mg PO QAM oxycodone-acetaminophen 5 mg-325 mg tablet (Percocet) 1 tab PO Q4H PRN pain famotidine 40 mg tablet 40 mg PO QAM metoprolol succinate 50 mg tablet,extended release 24 hr 50 mg PO QAM ASK your prescriber and surgeon aspirin 81 mg capsule 81 mg PO QAM DO NOT take the morning of surgery calcium carbonate (Tums) 300 mg PO TID PRN gerd losartan 50 mg tablet 50 mg PO QAM Take morning of surgery With a small sip of water, OTHERWISE NOTHING TO EAT OR DRINK AFTER MIDNIGHT: rosuvastatin 10 mg tablet 10 mg PO QAM omeprazole 20 mg capsule,delayed release 20 mg PO QAM oxycodone-acetaminophen 5 mg-325 mg tablet (Percocet) 1 tab PO Q4H PRN pain (if needed) famotidine 40 mg tablet 40 mg PO QAM metoprolol succinate 50 mg tablet,extended release 24 hr 50 mg PO QAM Take evening before surgery calcium carbonate (Tums) 300 mg PO TID PRN gerd (if needed) oxycodone-acetaminophen 5 mg-325 mg tablet (Percocet) 1 tab PO Q4H PRN pain (if needed) Other Notes If you have any questions please call us at [phone] or [phone] or [phone] or [phone]
--- NOTE | 2024-04-03 08:22 | Anesthesiology Consultation ---
Date of Service April 03, 2024 Assessment & Plan (1) Encounter for pre-operative examination: - Infectious disease screening: Per assessment on 04/03/24: No known infectious disease contacts or current infectious disease symptoms. No noted recent Covid positive test result. - S/P Aorta bifemoral bypass graft (10/09/22): Grade 2 view, MAC#3, ETT 7.5 at [facility] Chart Review Chart Review: Acceptable Risk for Surgery (pending evaluation DOS) and Patient seen in Pre Admission Testing Teaching & Discussion Pre-Anesthesia Teaching/Discussion Notes: Instructed NPO after midnight before surgery,except medications with 15 cc of water. Medication instructions provided according to the PAT guidelines. History Surgery Operation Date: 04/15/24 07:30 Proposed Procedures p Right Femoral to Popliteal Prosthetic Bypass - Kojo Clarke MD Height/Weight Height: 5 ft 9 in Weight: 98.7 kg Allergies Allergy/AdvReac Type Severity Reaction Status Date / Time levofloxacin Allergy Severe Throat Verified 03/31/24 09:38 swelling blueberry Allergy Unknown Throat Verified 03/31/24 09:38 swelling, hives Medications Home Medications Medication Instructions Recorded Confirmed Last Taken aspirin 81 mg capsule 81 mg PO QAM 06/26/22 03/30/24 02/27/24 07:00 calcium carbonate (Tums) 300 mg PO TID PRN gerd 06/26/22 03/30/24 02/27/24 07:00 rosuvastatin 10 mg tablet 10 mg PO QAM 08/23/22 03/30/24 02/27/24 07:00 losartan 50 mg tablet 50 mg PO QAM 10/09/22 03/30/24 02/27/24 07:00 omeprazole 20 mg capsule,delayed 20 mg PO QAM 10/09/22 03/30/24 02/27/24 07:00 release oxycodone-acetaminophen 5 mg-325 1 tab PO Q4H PRN pain #30 tabs 10/12/22 03/30/24 Unknown mg tablet (Percocet) famotidine 40 mg tablet 40 mg PO QAM 03/30/24 03/30/24 Unknown metoprolol succinate 50 mg 50 mg PO QAM 03/30/24 03/30/24 Unknown tablet,extended release 24 hr Past Medical History Medical History Adrenal nodule CTA with Aorta runoff (05/2022): 1.3 cm left adrenal nodule when compared to the right characteristic of a small adrenal adenoma. Right adrenal mass is seen. GERD (gastroesophageal reflux disease) Hearing loss History of hypertension White coat hypertension Hyperlipemia PAD (peripheral artery disease) Spinal stenosis Exercise / Class Metabolic Activity III < 4 Walking/Shop/Light housework (one FS: No CP, + SOB (stable)) Past Family History Family History Father No problems noted. Mother Family history of diabetes mellitus Past Surgical History Surgical History (Updated 04/03/24 @ 11:19 by Keri Soares) History of cardiac cath 2000- no stents History of cholecystectomy History of colonoscopy History of hand surgery Left History of lumbar surgery Fusion History of surgery Spinal cord stimulator (Advised to bring remote DOS) Pt reports remains in place/"has not used in past few years" History of tooth extraction S/P aorto-bifemoral bypass surgery Aorta bifemoral bypass graft (10/09/22): Grade 2 view, MAC#3, ETT 7.5 at [facility] Past Anesthesia History No Hx of Anesthesia Complications and No Family Hx of Anesthesia Complications History of PONV No Hx of PONV and No Hx of Motion Sickness Social History Smoking Status: Current every day smoker tobacco type: cigarettes Smoking cigarettes per day: 1 PPD Do You Dip or Chew Tobacco: No Hx Alcohol Use: No alcohol intake frequency: holidays/special occasions only Hx Substance Use: No substance use type: does not use Review of Systems Patient denies chest pain, shortness of breath, fever, chills, cough, wheezing, palpitations. Physical Exam Vital Signs BP 138/79 P 71 TEMP 97.9 SP02 95%RA RESP 18 Physical Mildly decreased cervical extension range of motion. Full TMJ range of motion. TMD 3 finger breaths Mallampati Score Dentition: full upper/lower dentures Lungs: clear throughout to auscultation Cardiac: regular rate and rhythm, no murmurs noted Spine: normal Carotid arteries: negative bruit Extremities: no LE edema Lab Results Anesthesia Preop Results Results Anesthesia Widget: WBC 7.43 K/ul (4.8-10.8) 04/03/24 Hgb 15.0 g/dl (14.0-18.0) 04/03/24 Hct 44.8 % (42.0-52.0) 04/03/24 Plt 227 K/uL (130-400) 04/03/24 Na 138 mmol/L (136-145) 04/03/24 K 4.4 mmol/L (3.5-5.1) 04/03/24 Cl 105 mmol/L (98-107) 04/03/24 CO2 25 mmol/L (21-32) 04/03/24 BUN 17 mg/dl (6-23) 04/03/24 Creat 0.97 mg/dl (0.6-1.4) 04/03/24 Glucose Level 109 mg/dl (70-99(Fasting)) H 04/03/24 PT 10.7 Seconds (9.0-12.0) 04/03/24 PTT 26 Seconds (21-31) 04/03/24 INR 1.0 (0.9-1.1) 04/03/24 Blood Type O Positive 04/03/24 Antibody Screen NEGATIVE 04/03/24 Testing Electrocardiogram Date: 04/03/24 NSR at 69bpm. RBBB. Chest X-Ray Date: 04/03/24 FINDINGS: No pneumothorax. No pleural effusions. The lungs are clear. The heart is normal in size. No evidence for bone edema. No acute fractures. Thoracic spinal stimulator leads are unchanged in position. IMPRESSION: No acute process. Stress Test Date: 07/03/22 Dobutamine Technically difficult study Positive ECG for ischemia at 89% MPHR, likely false positive given rapid resolution of ST depression in recovery Negative pharmacologic stress echo at 89% MPHR Occasional PVCs EF 60-65% Other Testing Aorta with runoff CTA Date: 06/01/22 Extensive atherosclerotic calcification in mural thrombus involving the infrarenal abdominal aorta with no focal aneurysm. Thrombosis and stenosis of the left common iliac and external iliac arteries. Reconstitution of the left femoral artery from collaterals from the left internal iliac artery. Thrombosis and occlusion of the mid right superficial femoral artery with reconstitution of the distal right superficial femoral artery via collaterals. Additional peripheral artery disease. There is a 1.3 cm left adrenal nodule when compared to the right characteristic of a small adrenal adenoma. Right adrenal mass is seen. *Case (specifically adrenal masses) reviewed with Dr. Suzy meeks to proceed with given surgery without further evaluation and/or testing in regards to this history from his perspective*
--- NOTE | 2024-05-04 10:46 | History & Physical Report ---
Date of Service May 04, 2024 Assessment & Plan (1) Claudication of right lower extremity: Plan: Patient is admitted for a right fem pop bypass. I have discussed the risks options and benefits of the procedure with the patient. The patient understands the risks options and benefits and agrees to the procedure. History of Present Illness Primary Care Provider: Maylin Simpson PA-C Mr Love is a 58-year-old gentleman who in 2021 had an aortobifemoral bypass graft. He does have a known right superficial femoral artery occlusion. He claims his claudication of his right lower extremity has worsened. He is given difficulty going up stairs or hills. This point it is irritating and limiting him enough that He would like something done for the occlusion. On arteriogram, he was found to have a right superficial femoral artery occlusion. He is admitted at this time for a right fem pop bypass. He denies any rest pain. Allergies Allergy/AdvReac Type Severity Reaction Status Date / Time levofloxacin Allergy Severe Throat Verified 03/31/24 09:38 swelling blueberry Allergy Unknown Throat Verified 03/31/24 09:38 swelling, hives Home Medications Medication Instructions Recorded Confirmed Type aspirin 81 mg capsule 81 mg PO QAM 06/26/22 03/30/24 History calcium carbonate (Tums) 300 mg PO TID PRN gerd 06/26/22 03/30/24 History rosuvastatin 10 mg tablet 10 mg PO QAM 08/23/22 03/30/24 History losartan 50 mg tablet 50 mg PO QAM 10/09/22 03/30/24 History omeprazole 20 mg capsule,delayed 20 mg PO QAM 10/09/22 03/30/24 History release oxycodone-acetaminophen 5 mg-325 1 tab PO Q4H PRN pain #30 tabs 10/12/22 03/30/24 Rx mg tablet (Percocet) famotidine 40 mg tablet 40 mg PO QAM 03/30/24 03/30/24 History metoprolol succinate 50 mg 50 mg PO QAM 03/30/24 03/30/24 History tablet,extended release 24 hr Past Med/Surg History Problem List Claudication of right lower extremity Tachycardia COPD with emphysema Hypertension Aortoiliac occlusive disease Lumbar stenosis with neurogenic claudication S/P aorto-bifemoral bypass surgery Aorta bifemoral bypass graft (10/09/22): Grade 2 view, MAC#3, ETT 7.5 at [facility] Medical History Hyperlipemia Hearing loss Adrenal nodule CTA with Aorta runoff (05/2022): 1.3 cm left adrenal nodule when compared to the right characteristic of a small adrenal adenoma. Right adrenal mass is seen. Spinal stenosis PAD (peripheral artery disease) GERD (gastroesophageal reflux disease) History of hypertension White coat hypertension Surgical History History of surgery Spinal cord stimulator (Advised to bring remote DOS) Pt reports remains in place/"has not used in past few years" History of tooth extraction History of cholecystectomy History of hand surgery Left History of lumbar surgery Fusion History of colonoscopy History of cardiac cath 2000- no stents Family History Father No problems noted. Mother Family history of diabetes mellitus Social History Smoking Status: Current every day smoker Tobacco Type: Cigarettes Cigarettes Per Day: 1 PPD; Second Hand Exposure: No; Do You Dip or Chew Tobacco: No; Tobacco Cessation Education Requested by Patient: No Hx Alcohol Use: No Hx Substance Use: No Preferred Language: Austrian Communication Ability: Effective Cell Reliner Required: No Beliefs That Will Affect Care: None marital status: Single Current Living Situation: Significant Other current occupational status: disabled Other Information That Helps Us Care for You: No Feels Safe at Home: Yes Safety Concerns: Feels Safe At This Time Assistive Devices: Denture - Upper, Denture - Lower and Glasses Review of Systems All systems reviewed & are unremarkable except as noted in HPI & below Physical Exam Constitutional: WD/WN, vitals as above Respiratory: normal respiratory effort, lungs clear to auscultation Cardiovascular: RRR, no murmur, no edema Vessels: femoral pulses present, posterior tibial pulses present (absent on right) and dorsalis pedis pulses present (absent on right) Gastrointestinal (Abdomen): normal bowel sounds, soft, nontender, no hepatosplenomegaly Neurologic: CN's II-XI intact bilaterally and moves all extremities Psychiatric: Orientation: alert and oriented x 3
[2024-05-05] MEDS ORDERED: DEXAMETHASONE SOD INJ 4 MG/ML VIAL ONE (09:04)
[2024-05-05] MEDS ORDERED: fentaNYL citrate PF 100 MCG/2 ML VIAL ONE ×2 (09:04→12:33)
[2024-05-05] MEDS ORDERED: GLYCOPYRROLATE 0.2 MG/ML VIAL ONE (09:04)
[2024-05-05] MEDS ORDERED: MIDAZOLAM HCL 1 MG/ML 2ML VIAL ONE (09:04)
[2024-05-05] MEDS ORDERED: PROPOFOL IV EMULSION 10 MG/ML 20 ML VIAL IV ONE (09:04)
[2024-05-05] MEDS ORDERED: ROCURONIUM BROMIDE 10 MG/ML 5 ML VIAL IV ONE (09:04)
[2024-05-05] MEDS ORDERED: ONDANSETRON INJ 2 MG/ML 2 ML VIAL ONE (09:04)
[2024-05-05] MEDS ORDERED: LIDOCAINE 2% 2 ML VIAL/AMP(20MG/ML) INFIL ONE (09:04)
[2024-05-05] MEDS ORDERED: HEPARIN SOD (PORCINE) 1000 UNIT/ML ONE (09:05)
[2024-05-05] MEDS ORDERED: PROTAMINE SULFATE 10 MG/ML 5 ML VIAL IV ONE (09:05)
[2024-05-05] MEDS ORDERED: HYDROmorphone INJ 1 MG/ML SYRINGE IV PRN (09:37)
[2024-05-05] MEDS ORDERED: ONDANSETRON INJ 2 MG/ML 2 ML VIAL IV PRN (09:37)
[2024-05-05] MEDS ORDERED: LABETALOL HCL IV 5 MG/ML 20ML IV PRN (09:37)
[2024-05-05] MEDS ORDERED: KETOROLAC 30 MG/ML VIAL IV PRN (09:37)
[2024-05-05] MEDS ORDERED: ATROPINE SULFATE 0.1 MG/ML 10ML SYR IV PRN (09:37)
[2024-05-05] MEDS ORDERED: ePHEDrine sulfate 50 MG/ML AMP IV PRN (09:38)
[2024-05-05] MEDS ORDERED: PHENYLEPHRINE 100MCG/ML 5ML SYR IV PRN (09:38)
[2024-05-05] MEDS: METOPROLOL SUCC 50MG EXT REL TAB PO STA (09:39)
[2024-05-05] MEDS: LACTATED RINGER'S 1,000 ML BAG IV SCH (09:39)
--- NOTE | 2024-05-05 10:14 | History & Physical Bridge Note ---
Date of Service May 05, 2024 History & Physical Bridge Note I have examined the patient, reviewed the History & Physical and in the interval since the performance of the History & Physical I have noted the following changes of clinical significance: no changes noted
[2024-05-05] MEDS: CEFAZOLIN 2,000 MG/15 ML SYR IV SCH (10:40)
[2024-05-05] MEDS: GELATIN SPONGE SZ 100 ONE (12:22)
[2024-05-05] MEDS: ceFAZolin 330 MG/ML 1 GM VIAL ONE (12:32)
[2024-05-05] MEDS: THROMBIN FOR SOLN 20000 UNIT KIT ONE (12:33)
[2024-05-05] MEDS: HEPARIN (PORCINE) 1000 UNIT/ML 10 ML (CATH LAB USE ONLY) ONE (12:33)
[2024-05-05] MEDS: VISIPAQUE IV PRN (12:34)
[2024-05-05] MEDS: SURGICEL ABSORB HEMOSTAT 2IN X 14IN TOP ONE (12:34)
--- NOTE | 2024-05-05 12:49 | Post Operative Brief Note ---
Immediate Post Op Note Date of Surgery May 05, 2024 Pre & Post Diagnosis Operation Date: 05/05/24 10:15 Pre-Op Diagnosis: Claudication of right lower extremity Post-Op Diagnosis: Claudication of right lower extremity I identified the patient and participated in the time-out.: Yes Procedure Operation Date: 05/05/24 10:15 Actual Procedures p Right Femoral to Popliteal Prosthetic Bypass(Right) - Kojo Clarke MD Surgeon Kojo Clarke MD Supervisor [employer] Maintenance none Estimated Blood Loss 150 Findings Consistent with Post-Op Diagnosis Drains Velazquez Catheter Anesthesia Type General Complications none Disposition Accompanied Patient To Recovery: No Disposition: Recovery Room
[2024-05-05 13:25] LABS: Basophils # (auto) 0.05 K/uL (0.00-0.20); Basophils % (auto) 0.6 %; Eosinophils # (auto) 0.17 K/uL (0.00-0.50); Hematocrit (blood only) 43.2 % (42.0-52.0); Hemoglobin 14.4 g/dl (14.0-18.0); Immature Granulocytes # (auto) 0.05 K/uL (0.01-0.20); Immature Granulocytes % (auto) 0.6 %; Lymphocytes # (auto) 1.88 K/uL (1.20-3.40); Lymphocytes % (auto) 22.2 %; Mean Corpuscular Hemoglobin 30.7 pg (25.0-34.0); Mean Corpuscular Hgb Conc 33.3 g/dL (32.0-36.0); Mean Corpuscular Volume 92.1 fL (80.0-100.0); Mean Platelet Volume 10.8 fL (9.4-12.4); Monocytes # (auto) 0.29 K/uL (0.11-0.59); Monocytes % (auto) 3.4 %; Neutrophils # (auto) 6.03 K/uL (1.40-6.50); Neutrophils % (auto) 71.2 %; Platelet Count 202 K/uL (130-400); RDW Coefficient of Variation 14.1 % (11.5-14.5); RDW Standard Deviation 47.6 fL (36.4-46.3); Red Blood Count 4.69 M/uL (4.70-6.10); White Blood Count 8.47 K/ul (4.8-10.8)
--- NOTE | 2024-05-05 13:34 | Anesthesiology Progress Note ---
Date of Service May 05, 2024 Anesthesia Post Procedure Vital Signs Vital Signs: Temp Pulse Resp BP BP Pulse Ox O2 Del Method 05/05/24 13:25 36.3 C L 87 15 133/91 94 Nasal Cannula 05/05/24 13:15 88 19 139/93 95 Oxymask 05/05/24 13:05 77 12 137/81 95 Oxymask 05/05/24 12:55 72 14 127/72 96 Oxymask 05/05/24 12:50 108/67 05/05/24 12:46 36.3 C L 72 12 98/17 L 94 Oxymask 05/05/24 08:42 36.6 C 80 20 164/86 H 153/93 H 97 Room Air O2 Flow Rate 05/05/24 13:25 4 05/05/24 13:15 4 05/05/24 13:05 15 05/05/24 12:55 15 05/05/24 12:50 05/05/24 12:46 10 05/05/24 08:42 Transfer of Care Handoff Completed per policy Notes Mental Status: alert / awake / arousable Patient Amnestic to Procedure: Yes Nausea / Vomiting: adequately controlled Pain: adequately controlled Airway Patency, RR, SpO2: stable & adequate BP & HR: stable & adequate Hydration State: stable & adequate Anesthetic Complications: no major complications apparent
[2024-05-05] MEDS ORDERED: oxyCODONE/ACETAMINOPHEN 5mg/325mg TAB PO PRN ×2 (14:11)
[2024-05-05] MEDS ORDERED: PHENYLEPHRINE/NSS 25 MG/250 ML BAG IV PRN (14:11)
[2024-05-05] MEDS ORDERED: MoRPHine SULFATE 4 MG/ML 1 ML CARP\\VIAL IV PRN (14:11)
[2024-05-05] MEDS: LACTATED RINGER'S 1,000 ML IV SCH (14:16)
[2024-05-05] MEDS ORDERED: CALCIUM CARBONATE 500 MG CHEWABLE TAB PO PRN (14:21)
--- NOTE | 2024-05-05 14:36 | Critical Care Consultation ---
Date of Consultation May 05, 2024 Assessment & Plan (1) Claudication of right lower extremity: (2) COPD with emphysema: (3) Hypertension: (4) Aortoiliac occlusive disease: Plan -- Claudication of the right lower extremity Status post right femoropopliteal bypass 05/05/[address] Clarke Lower extremity neurochecks Monitor blood pressure Monitor for any signs of bleeding Statin to be resumed tomorrow --Active smoker >30 pack-year smoking history Currently smoking half a pack a day Recommend outpatient polysomnography -- GERD Continue with famotidine and omeprazole -- Hypertension/dyslipidemia On metoprolol and rosuvastatin at home --Peripheral vascular disease History of left femoropopliteal bypass 09/2022 --Prophylaxis VTE: None GI: Famotidine and pantoprazole Lines: Peripheral Diet: Cardiac Plan: Strict in and out Monitor H&H Lower extremity neurological checks Please note the above document was generated using voice recognition software. It may contain grammatical, syntax or spelling errors.Any formal questions or concerns about the content, text or information contained within the body of this dictation should be directly addressed to the provider for clarification. History of Present Illness Attending Physician: Kojo Clarke MD History of Present Illness 58-year-old male came to the hospital to have right femoral-popliteal bypass Past medical history: Peripheral vascular disease, hypertension, dyslipidemia, GERD Patient was sent to the ICU for postop care At the time of examination patient was saturating 96% on 2 L nasal cannula. His heart rate was in the mid 70s. Systolic blood pressure in the 140s. Denied any shortness of breath, no chest pain. No abdominal pain. Does not have any issues with his breathing at baseline. Right groin wound VAC in place. No hematoma appreciated around the site Patient denies any headache, no blurry vision No nausea or vomiting Social history: > 47-sspo-gzor smoking history Allergies Allergy/AdvReac Type Severity Reaction Status Date / Time levofloxacin Allergy Severe Throat Verified 05/05/24 08:45 swelling blueberry Allergy Unknown Throat Verified 05/05/24 08:45 swelling, hives Home Medications Medication Instructions Recorded Confirmed Type aspirin 81 mg capsule 81 mg PO QAM 06/26/22 05/05/24 History calcium carbonate (Tums) 300 mg PO TID PRN gerd 06/26/22 05/05/24 History rosuvastatin 10 mg tablet 10 mg PO QAM 08/23/22 05/05/24 History losartan 50 mg tablet 50 mg PO QAM 10/09/22 05/05/24 History omeprazole 20 mg capsule,delayed 20 mg PO QAM 10/09/22 05/05/24 History release oxycodone-acetaminophen 5 mg-325 1 tab PO Q4H PRN pain #30 tabs 10/12/22 05/05/24 Rx mg tablet (Percocet) famotidine 40 mg tablet 40 mg PO QAM 03/30/24 05/05/24 History metoprolol succinate 50 mg 50 mg PO QAM 03/30/24 05/05/24 History tablet,extended release 24 hr Patient History Medical History (Updated 05/05/24 @ 08:45 by Samina Cash, RN) COPD with emphysema Hyperlipemia Hearing loss Adrenal nodule CTA with Aorta runoff (05/2022): 1.3 cm left adrenal nodule when compared to the right characteristic of a small adrenal adenoma. Right adrenal mass is seen. Spinal stenosis PAD (peripheral artery disease) GERD (gastroesophageal reflux disease) History of hypertension White coat hypertension Surgical History History of surgery Spinal cord stimulator (Advised to bring remote DOS) Pt reports remains in place/"has not used in past few years" History of tooth extraction History of cholecystectomy History of hand surgery Left History of lumbar surgery Fusion History of colonoscopy History of cardiac cath 2000- no stents Family History Father No problems noted. Mother Family history of diabetes mellitus Social History Smoking Status: Current every day smoker Tobacco Type: Cigarettes Cigarettes Per Day: 1 PPD; Second Hand Exposure: No; Do You Dip or Chew Tobacco: No; Tobacco Cessation Education Requested by Patient: No Hx Alcohol Use: No Hx Substance Use: No Preferred Language: Urdu Communication Ability: Effective Senior Oracle Database Administrator Required: No Beliefs That Will Affect Care: None marital status: Single Current Living Situation: Significant Other current occupational status: disabled Other Information That Helps Us Care for You: No Feels Safe at Home: Yes Safety Concerns: Feels Safe At This Time Assistive Devices: Denture - Upper, Denture - Lower and Glasses Review of Systems 2 Review of Systems: All systems reviewed & are unremarkable except as noted in HPI & below Physical Exam 2 Physical Exam: Constitutional: No acute distress HEENT: EOMI, PERRLA Respiratory system: Good air entry bilaterally, no wheeze, rhonchi, mild crackles bilateral lower lobes CVS: S1-S2 positive, no murmurs or gallops Abdomen: Soft, nontender, nondistended, positive bowel sounds x4, obese Extremities: +2 pulses bilaterally radialis/left dorsalis pedis, +2 right posterior tibialis, no cyanosis, no edema Neuro: Awake alert oriented x3 Psych: Normal mood and affect G/U: Positive Velazquez Skin: no rashes, warm and dry Lymphatic: no cervical or axillary lymphadenopathy Results & Data Results & Data Vital Signs (Past 12 Hours) Vital Signs Temp Pulse Resp BP BP Pulse Ox O2 Del Method 05/05/24 13:45 84 20 143/76 H 94 Nasal Cannula 05/05/24 13:35 75 17 135/88 93 Nasal Cannula 05/05/24 13:25 36.3 C L 87 15 133/91 94 Nasal Cannula 05/05/24 13:15 88 19 139/93 95 Oxymask 05/05/24 13:05 77 12 137/81 95 Oxymask 05/05/24 12:55 72 14 127/72 96 Oxymask 05/05/24 12:50 108/67 05/05/24 12:46 36.3 C L 72 12 98/17 L 94 Oxymask 05/05/24 08:42 36.6 C 80 20 164/86 H 153/93 H 97 Room Air O2 Flow Rate 05/05/24 13:45 4 05/05/24 13:35 4 05/05/24 13:25 4 05/05/24 13:15 4 05/05/24 13:05 15 05/05/24 12:55 15 05/05/24 12:50 05/05/24 12:46 10 05/05/24 08:42 Laboratory Results 05/05/24 12:56 Coding Level of Care Code 00676 IN/OBS CONSULT LVL 4,60M Diagnoses Claudication of right lower extremity I73.9 COPD with emphysema J43.9 Hypertension I10 Aortoiliac occlusive disease I74.09 Comment 27171
[2024-05-05] MEDS: FAMOTIDINE 40 MG TABLET PO SCH (15:10)
[2024-05-05] MEDS: METOPROLOL SUCC 50MG EXT REL TAB PO SCH (15:10)
[2024-05-05] MEDS: LOSARTAN POTASSIUM 50 MG TAB PO SCH (15:10)
--- OUTSIDE RECORDS SUMMARY | 2024-05-05 15:40 | External Medical Summary | Summary of Care ---
Author Name Unknown Organization [facility] Address [address] [facility] [place] [address] Phone [phone] Care Team Providers Care Head Start Teacher Name Role Phone Maylin Simpson PA-C Primary Care Provider [phone]- [phone] Reason for Visit * Reason Comments eRx-Medication Refill Encounter Details Date Type Department Care Team (Late st Contact Info) Description 04/21/2024 Refill [place] [address] [place], [place] [id number] Maylin Simpson PA-C [facility] [address] [place], [place] [id number] PVD (peripheral vascular disease) ([facility]) Allergies Active Allergy Reactions Criticality Noted Date Comments Blueberry Flavor Edema airway,Hives High 12/14/2022 Levofloxacin Edema face/lips/tongue High 03/09/2015 documented as of this encounter (statuses as of 04/23/2024) Medications Medication Sig Dispensed Refills Start Date End Date Status Ibuprofen 200 MG Oral Capsule 2 Capsules. 05/14/2022 Active Sildenafil Citrate 100 MG Oral Tablet 12/14/2022 Active Losartan Potassium 100 MG Oral Tablet (Cozaar) Take 1 Tablet by mouth in the morning. 02/11/2023 Active hydrOXYzine HCl 25 MG Oral TabletIndications :Insomnia secondary to depression with anxiety Take 1 Tablet by mouth at bedtime as needed for Other (sleep). 30 Tablet 05/10/2023 Active Rosuvastatin Calcium 20 MG Oral Tablet (Crestor)Indicati ons:Hyperlipidemi a with target LDL less than 70,PAD (peripheral artery disease) (HCC),Aortoiliac occlusive disease (HCC) Take 1 Tablet by mouth at bedtime. 90 Tablet 3 07/10/2023 Active Famotidine 20 MG Oral Tablet (Pepcid)Indicatio ns:Gastroesophage al reflux disease without esophagitis Take 1 Tablet by mouth at bedtime. 90 Tablet 3 07/10/2023 Active Sertraline HCl 50 MG Oral Tablet (Zoloft)Indicatio ns:Depression with anxiety TAKE ONE TABLET BY MOUTH EVERY MORNING 90 Tablet 1 12/18/2023 Active amLODIPine Besylate 5 MG Oral Tablet (Norvasc) Take 1 Tablet by mouth in the morning. Active Icosapent Ethyl 1 GM Oral Capsule (Vascepa)Indicati ons:Hypertriglyce ridemia Take 2 Capsules by mouth 2 times a day with morning and evening meals. Swallow capsules whole, do not open or break. 360 Capsule 3 02/04/2024 Active Metoprolol Succinate ER 50 MG Oral Tablet Extended Release 24 Hour (toPROL XL) TAKE ONE TABLET BY MOUTH EVERY MORNING 90 Tablet 3 02/10/2024 Active Omeprazole 20 MG Oral Capsule Delayed Release (PriLOSEC)Indicat ions:Gastroesopha geal reflux disease without esophagitis TAKE ONE CAPSULE BY MOUTH EVERY DAY AT LEAST 1 HOUR BEFORE FIRST MEAL 90 Capsule 1 03/18/2024 Active Aspirin Low Dose 81 MG Oral Tablet Delayed Release (aspirin enteric coated)Indication s:PVD (peripheral vascular disease) ([facility]) TAKE ONE TABLET BY MOUTH EVERY MORNING 100 Tablet 1 04/23/2024 Active Aspirin Low Dose 81 MG Oral Tablet Delayed Release (aspirin enteric coated)Indication s:PVD (peripheral vascular disease) ([facility]) TAKE ONE TABLET BY MOUTH EVERY MORNING 100 Tablet 1 09/12/2023 4 Discontinued documented as of this encounter (statuses as of 04/23/2024) Active Problems Problem Noted Date Diagnosed Date Adjustment disorder with mixed anxiety and depre ssed mood 11/08/2023 Aortoiliac occlusive disease 12/14/2022 HTN, goal below 130/80 09/13/2022 Hyperlipidemia with target LDL less than 70 08/26 PAD (peripheral artery disease) 09/13/2022 Deviated nasal septum 02/27/2018 S/P insertion of spinal cord stimulator 01/31/20 Overview: 01/21/18: internal generator installed 12/19/17 - initial insertion external generator Spinal stenosis of lumbar re gion with neurogenic claudication 01/07/2018 Overview: Intermittent left leg paresthesias S/P lumbar fusion 02/23/2016 Overview: Lumbar fusion L3-4, L4-5, L5-S1 12/19/16 Injections 07/2016 x 2 : some relief Eval by DR. Conway - trial of injections first but may need surgery MRI 06/2016: mod/severe left foraminal stenosis L4 to S1 Tobacco use disorder 12/09/2003 documented as of this encounter (statuses as of 04/23/2024) Resolved Problems Problem Noted Date Diagnosed Date Resolved Date Peripheral vascular disease 09/13/2022 09/13/2022 Other chest pain 01/07/2020 09/07/2021 Spinal enthesopathy, lumbosacral region 11/23/2019 12/14/2020 Episodic cluster headache, not intractable 09/08/2018 09/07/2021 Screen for colon cancer 12/08/201508/25 Overview: Colonoscopy 12/06/15: multiple polyps but all were hyperplastic - 3 yr due to large number of polyps. HTN, goal below 140/90 11/22/201512/14 Overview: Lifestyle x 6 months Other chronic sinusitis 06/28/201508/25 Dyslipidemia, goal to be determined 11/03/2009 05/20/2015 Overview: Per Lipid Taxonomy. LIPID PANEL [place] Dt/Tm Resulted Value Status HOURS FASTING (hours) 07/11/07 7:03A 07/11/07 11 Final TRIGLYCERIDES (mg/dL) 07/11/07 7:03A 07/11/07 862* Final CHOLESTEROL (mg/dL) 07/11/07 7:03A 07/11/07 252* Final HDL (mg/dL) 07/11/07 7:03A 07/11/07 35* Final CHOL/HDL RATIO (no units) 07/11/07 7:03A 07/11/07 7.2 Final LDL (CALCULATED) (mg/dL) 07/11/07 7:03A 07/11/07 Final Value: UNINTERPRETABLE RESULT Nonobstructive atheroscleros is of coronary artery 08/25/2007 12/14/2020 Overview: Normal cath 08/21/07 Mixed dyslipidemia 07/16/2007 Overview: Per Lipid Taxonomy. LIPID PANEL [place] Dt/Tm Resulted Value Status HOURS FASTING (hours) 07/11/07 7:03A 07/11/07 11 Final TRIGLYCERIDES (mg/dL) 07/11/07 7:03A 07/11/07 862* Final CHOLESTEROL (mg/dL) 07/11/07 7:03A 07/11/07 252* Final HDL (mg/dL) 07/11/07 7:03A 07/11/07 35* Final CHOL/HDL RATIO (no units) 07/11/07 7:03A 07/11/07 7.2 Final LDL (CALCULATED) (mg/dL) 07/11/07 7:03A 07/11/07 Final Value: UNINTERPRETABLE RESULT Alcohol abuse, unspecified 07/10/2007 0 01/06/2015 Overview: 07/10/07 ~30 beers/week documented as of this encounter (statuses as of 04/23/2024) Immunizations Name Administration Dates Next Due TDAP, Age 7 and older, IM (Adacel) 06/25/2011, documented as of this encounter Social History Tobacco Use Types Packs/Day Years Used Date Smoking Tobacco: Every Day Cigarettes 1 17 Smokeless Tobacco: Former Chew Quit: 03/07/2000 Alcohol Use Standard Drinks/Week Comments No 0 (1 standard drink = 0.6 oz pur e alcohol) Stopped beers March 2012 PHQ-2 Answer Date Recorded PHQ Adult Total Score 0 12/20/2023 Hunger Vital Sign Answer Date Recorded Within the past 12 months, y ou worried that your food would run out before you got the money to buy more. Never true 12/20/19 24 Within the past 12 months, t he food you bought just didn't last and you didn't have money to get more. Never true 12/20/2023 Sex and Gender Information Value Date Recorded Sex Assigned at Male 01/21/2023 9:01 AM EST Gender Identity Not on file Sexual Orientation Not on file Job Start Date Occupation Industry Not on file Not on file Not on file documented as of this encounter Miscellaneous Notes * Telephone Encounter - Marcy Clement RPh - 04/23/2024 7:58 AM EDTSigned Prescriptions: Disp Refills Aspirin Low Dose 81 MG Oral Tablet Delayed*100 Ta*1 Sig: TAKE ONE TABLET BY MOUTH EVERY MORNINGAuthorizing Provider: MAYLIN SIMPSON User: MARCY CLEMENT documented in this encounter Plan of Treatment Upcoming Encounters Date Type Department Care Team (Late st Contact Info) Description 07/29/2024 8:40 AM EDT Office Visit [place] [address] [place] [address] Maylin Simpson PA-C [facility] [address] [place] [address] Scheduled Procedures Name Priority Associated Diagnoses Date/Ti me COLONOSCOPY FLEXIBLE PROXIMA L DIAGNOSTIC Recall History of colonic polyps Health Maintenance Due Date Last Done Comments DISCUSS TOBACCO CESSATION (REFER TO SMARTSET #0741) 1965 Pneumococcal Vaccine: Pediatrics (0 to 5 Years) and At-Risk Patients (6 to 64 Years) (1 of 2 - PCV) 1971 Hepatitis B (1 of 3 - 19+ 3-dose series) 1984 Cologuard 2010 Fecal Occult Blood Test 2010 Sigmoidoscopy 2010 Zoster Vaccines (1 of 2) 2015 DTaP,Tdap,and Td Vaccines (3 - Td or Tdap) 06/25/2021 06/25/2011, 05/25/2010 COVID-19 Vaccine (1 - 2022- season) 2023 Influenza Vaccine (FLU shot) (Season Ended) 2024 Depression Screening 12/20/2024 12/20/2023 GFR 01/26/2025 01/27/2024, 04/0 03/2023, 12/25/2022, Additional history exists Albumin/Creatinine Ratio 01/26/2027 01/27/2024 Diabetes Screening 01/26/2027 01/27/2024, 0 02/27/2023, 02/27/2023, Additional history exists Colonoscopy 06/10/2028 06/10/2023, 05/25, 01/24/2021, Additional history exists Colorectal Cancer Screening 06/10/2028 RETIRED - COLONOSCOPY-ANNUAL AGES 18-100 Discontinued 06/10/2023, 06/10/2023, 01/24/2021, Additional history exists RETIRED - COLONOSCOPY-EVERY 5 YRS AGES 18-100 Discontinued 06/10/2023, 06/10/2023, 01/24/2021, Additional history exists GARDASIL-HPV IMMUNIZATION SERIES Aged Out No longer eligible based on patient's age to complete this topic MENINGOCOCCAL (MENACTRA/MENVEO) Aged Out No longer eligible based on patient's age to complete this topic documented as of this encounter Medical Devices Not on filedocumented as of this encounter Visit Diagnoses Diagnosis PVD (peripheral vascular disease) (HCC) Peripheral vascular disease, unspecified documented in this encounter Advance Directives * Full Code (Latest Code Status on File) Date Activated Date Inactivated Comments 01/09/2023 7:00 AM 01/09/2023 2:11 PM This order r eflects the patients wishes and were consensually agreed upon. Question Answer Comments Discussion of Advance Direct benedicto occurred with: Not Discussed due to patient's condition Care Teams Head Start Teacher Relationship Specialty Start Date End Date Maylin Simpson PA-C [address] [facility] [address] [place] [address] PCP - General Physician Roller Helper 07/21/20 documented as of this encounter
--- OUTSIDE RECORDS SUMMARY | 2024-05-05 15:40 | External Medical Summary | Summary of Care ---
Author Name Unknown Organization [facility] Address [address] [facility] [place] [address] Phone [phone] Care Team Providers Care Cement Finisher Apprentice Name Role Phone Maylin Simpson PA-C Primary Care Provider [phone]- [phone] Reason for Visit * Reason Onset Date Comments Fax 04/14/2024 Encounter Details Date Type Department Care Team (Late st Contact Info) Description 04/14/[address] [place] [address] Maylin Simpson PA-C [facility] [facility] [address] [place], [place] [id number] Fax Allergies Active Allergy Reactions Criticality Noted Date Comments Blueberry Flavor Edema airway,Hives High 12/14/2022 Levofloxacin Edema face/lips/tongue High 03/09/2015 documented as of this encounter (statuses as of 04/14/2024) Medications Medication Sig Dispensed Refills Start Date End Date Status Ibuprofen 200 MG Oral Capsule 2 Capsules. 05/14/2022 Active Sildenafil Citrate 100 MG Oral Tablet 12/14/2022 Active Losartan Potassium 100 MG Oral Tablet (Cozaar) Take 1 Tablet by mouth in the morning. 02/11/2023 Active hydrOXYzine HCl 25 MG Oral TabletIndications:In somnia secondary to depression with anxiety Take 1 Tablet by mouth at bedtime as needed for Other (sleep). 30 Tablet 05/10/2023 Active Rosuvastatin Calcium 20 MG Oral Tablet (Crestor)Indications :Hyperlipidemia with target LDL less than 70,PAD (peripheral artery disease) ([facility]),Aortoiliac occlusive disease (HCC) Take 1 Tablet by mouth at bedtime. 90 Tablet 3 07/10/2023 Active Famotidine 20 MG Oral Tablet (Pepcid)Indications: Gastroesophageal reflux disease without esophagitis Take 1 Tablet by mouth at bedtime. 90 Tablet 3 07/10/2023 Active Aspirin Low Dose 81 MG Oral Tablet Delayed Release (aspirin enteric coated)Indications:P VD (peripheral vascular disease) ([facility]) TAKE ONE TABLET BY MOUTH EVERY MORNING 100 Tablet 1 09/12/2023 Active Sertraline HCl 50 MG Oral Tablet (Zoloft)Indications: Depression with anxiety TAKE ONE TABLET BY MOUTH EVERY MORNING 90 Tablet 1 12/18/2023 Active amLODIPine Besylate 5 MG Oral Tablet (Norvasc) Take 1 Tablet by mouth in the morning. Active Icosapent Ethyl 1 GM Oral Capsule (Vascepa)Indications :Hypertriglyceridemi a Take 2 Capsules by mouth 2 times a day with morning and evening meals. Swallow capsules whole, do not open or break. 360 Capsule 3 02/04/2024 Active Metoprolol Succinate ER 50 MG Oral Tablet Extended Release 24 Hour (toPROL XL) TAKE ONE TABLET BY MOUTH EVERY MORNING 90 Tablet 3 02/10/2024 Active Omeprazole 20 MG Oral Capsule Delayed Release (PriLOSEC)Indication s:Gastroesophageal reflux disease without esophagitis TAKE ONE CAPSULE BY MOUTH EVERY DAY AT LEAST 1 HOUR BEFORE FIRST MEAL 90 Capsule 1 03/18/2024 Active documented as of this encounter (statuses as of 04/14/2024) Active Problems Problem Noted Date Diagnosed Date [...] as of this encounter (statuses as of 04/14/2024) Resolved Problems Problem Noted Date Diagnosed Date [...] Overview: Normal cath 08/21/07 Mixed dyslipidemia 07/16/2007 9 Overview: Per Lipid Taxonomy. LIPID PANEL [place] [...] as of this encounter (statuses as of 04/14/2024) Immunizations Name Administration Dates Next Due TDAP (age 11 and older)(Adacel) 06/25/2011,05/25 documented as of this encounter Social History [...] encounter Miscellaneous Notes * Telephone Encounter - Tania Montilla OSA - 04/14/2024 11:50 AM EDT Faxed labs and recent ov note to [facility]. * Telephone Encounter - Avelina Connolly OSA - 04/14/2024 11:19 AM EDT Caller requesting the following information to be faxed: Name/Company of caller: Dr Hager office with [facility] Information requested to be faxed: recent labs and last office note Fax number: [phone] Attention to Name/Company: Attn:Kaylyn Any additional information?: documented in this encounter Plan of Treatment Upcoming Encounters Date Type Department Care Team (Late st Contact Info) Description 07/29/2024 8:40 AM EDT Office Visit [place] [address] [place] [id number] Maylin Simpson PA-C [facility] [place] [address] Scheduled Procedures Name Priority Associated Diagnoses Date/Ti me COLONOSCOPY FLEXIBLE PROXIMA L DIAGNOSTIC Recall History of colonic polyps Health Maintenance Due Date Last Done Comments DISCUSS TOBACCO CESSATION (REFER TO SMARTSET #[id number]) 1965 Pneumococcal Vaccine: Pediatrics (0 to 5 [...] Not on filedocumented as of this encounter Advance Directives * Full Code (Latest Code Status on File) Date Activated Date Inactivated Comments 01/09/2023 7:00 AM 01/09/2023 2:11 PM This order r eflects the patients wishes and were consensually agreed upon. Question Answer Comments Discussion of Advance Direct benedicto occurred with: Not Discussed due to patient's condition Care Teams Cement Finisher Apprentice Relationship Specialty Start Date End Date Maylin Simpson PA-C [address] [facility] [address] [place] [address] PCP - General Physician Tax Expert 07/21/20 documented as of this encounter
[2024-05-05] MEDS: ceFAZolin 2000MG 2,000 MG/15 ML SYR IV SCH (17:18)
[2024-05-06 05:28] LABS: BUN Creatinine Ratio 17.6 (10-20); Calcium 9.5 mg/dl (8.6-10.3); Creatinine Clr Calc Pharmacy 90.6 ml/min; Est GFR (African American) 93.5 ml/min; Est GFR (Non-African American) 80.6 ml/min; Potassium 4.4 mmol/L (3.5-5.1)
[2024-05-06 05:57] LABS: Basophils # (auto) 0.02 K/uL (0.00-0.20); Basophils % (auto) 0.1 %; Eosinophils # (auto) 0.02 K/uL (0.00-0.50); Eosinophils % (auto) 0.1 %; Hematocrit (blood only) 46.5 % (42.0-52.0); Hemoglobin 15.9 g/dl (14.0-18.0); Immature Granulocytes % (auto) 0.5 %; Lymphocytes # (auto) 2.05 K/uL (1.20-3.40); Lymphocytes % (auto) 10.7 %; Mean Corpuscular Hemoglobin 31.1 pg (25.0-34.0); Mean Corpuscular Hgb Conc 34.2 g/dL (32.0-36.0); Mean Corpuscular Volume 90.8 fL (80.0-100.0); Mean Platelet Volume 11.1 fL (9.4-12.4); Monocytes # (auto) 1.36 K/uL (0.11-0.59); Monocytes % (auto) 7.1 %; Neutrophils # (auto) 15.59 K/uL (1.40-6.50); Neutrophils % (auto) 81.5 %; Platelet Count 265 K/uL (130-400); RDW Coefficient of Variation 14.1 % (11.5-14.5); RDW Standard Deviation 47.2 fL (36.4-46.3); Red Blood Count 5.12 M/uL (4.70-6.10); White Blood Count 19.14 K/ul (4.8-10.8)
--- NOTE | 2024-05-06 07:14 | Critical Care Progress Note ---
Date of Service May 06, 2024 Assessment & Plan (1) Claudication of right lower extremity: (2) Hypertension: (3) Aortoiliac occlusive disease: Plan -- Claudication of the right lower extremity Status post right femoropopliteal bypass 05/05/[address] Clarke Lower extremity neurochecks Monitor blood pressure Monitor for any signs of bleeding Statin to be resumed tomorrow --Active smoker >30 pack-year smoking history Currently smoking half a pack a day Recommend outpatient polysomnography -- GERD Continue with famotidine and omeprazole -- Hypertension/dyslipidemia On metoprolol and rosuvastatin at home --Peripheral vascular disease History of left femoropopliteal bypass 09/2022 --Prophylaxis VTE: None GI: Famotidine and pantoprazole Lines: Peripheral Diet: Cardiac Plan: In/out: -1.2 L, urine output 3425 Need to keep an eye on blood pressure, might need adjustment to the blood pressure medications. Disposition as per vascular surgery Please note the above document was generated using voice recognition software. It may contain grammatical, syntax or spelling errors.Any formal questions or concerns about the content, text or information contained within the body of this dictation should be directly addressed to the provider for clarification. Admission and Anticipated Discharge Date Admission Date: May 05, 2024 Subjective Patient seen and examined at bedside. No acute distress, no adverse events overnight Denies any chest pain, no shortness of breath Blood pressure was systolic in the 150s at the time of examination Denied any headache or blurry vision No abdominal pain Review of Systems 2 Review of Systems: All systems reviewed & are unremarkable except as noted in Subjective Physical Exam 2 Physical Exam: Constitutional: No acute distress HEENT: EOMI, PERRLA Respiratory system: Good air entry bilaterally, no wheeze, rhonchi, mild crackles bilateral lower lobes CVS: S1-S2 positive, no murmurs or gallops Abdomen: Soft, nontender, nondistended, positive bowel sounds x4, obese Extremities: +2 pulses bilaterally radialis/left dorsalis pedis, +2 right posterior tibialis, no cyanosis, no edema Neuro: Awake alert oriented x3 Psych: Normal mood and affect G/U: Positive Velazquez Skin: no rashes, warm and dry Lymphatic: no cervical or axillary lymphadenopathy Results & Data Results & Data Vital Signs (Past 12 Hours) Vital Signs Temp Pulse Resp BP BP Pulse Ox O2 Del Method 05/06/24 06:33 164/87 H 05/06/24 06:21 64 24 05/06/24 06:00 66 21 05/06/24 05:54 67 23 05/06/24 05:45 78 19 05/06/24 05:21 66 16 05/06/24 05:12 63 17 05/06/24 04:51 63 16 05/06/24 04:45 66 16 05/06/24 04:18 82 23 05/06/24 04:06 78 13 05/06/24 04:05 37 C 05/06/24 03:51 83 21 05/06/24 03:45 81 14 05/06/24 03:30 71 25 H 05/06/24 03:15 79 18 05/06/24 03:09 68 20 05/06/24 03:00 145/77 H 05/06/24 02:54 67 18 05/06/24 02:12 80 19 05/06/24 02:03 68 20 05/06/24 02:01 146/90 H 05/06/24 01:54 65 12 05/06/24 01:39 63 12 05/06/24 01:15 64 12 05/06/24 01:00 142/77 H 05/06/24 01:00 73 15 05/06/24 00:57 71 15 05/06/24 00:45 69 16 05/06/24 00:36 70 17 05/06/24 00:12 70 18 05/06/24 00:09 85 19 05/06/24 00:00 142/77 H 05/05/24 23:42 65 15 05/05/24 23:39 76 18 05/05/24 23:12 74 17 92 05/05/24 23:00 83 15 92 05/05/24 22:57 76 13 92 05/05/24 22:33 87 15 92 05/05/24 22:20 37 C 05/05/24 22:03 71 17 93 05/05/24 21:42 65 2 L 92 05/05/24 21:33 70 10 L 92 05/05/24 21:24 67 12 92 05/05/24 21:00 134/62 05/05/24 21:00 67 1 L 90 05/05/24 20:41 90 21 93 05/05/24 20:35 69 16 94 05/05/24 20:30 152/76 H 05/05/24 20:29 67 16 94 05/05/24 20:11 75 18 93 05/05/24 20:02 76 18 94 05/05/24 20:00 153/89 H 05/05/24 19:59 82 17 94 05/05/24 19:53 80 15 94 05/05/24 19:32 79 20 97 05/05/24 19:21 Nasal Cannula O2 Flow Rate 05/06/24 06:33 05/06/24 06:21 05/06/24 06:00 05/06/24 05:54 05/06/24 05:45 05/06/24 05:21 05/06/24 05:12 05/06/24 04:51 05/06/24 04:45 05/06/24 04:18 05/06/24 04:06 05/06/24 04:05 05/06/24 03:51 05/06/24 03:45 05/06/24 03:30 05/06/24 03:15 05/06/24 03:09 05/06/24 03:00 05/06/24 02:54 05/06/24 02:12 05/06/24 02:03 05/06/24 02:01 05/06/24 01:54 05/06/24 01:39 05/06/24 01:15 05/06/24 01:00 05/06/24 01:00 05/06/24 00:57 05/06/24 00:45 05/06/24 00:36 05/06/24 00:12 05/06/24 00:09 05/06/24 00:00 05/05/24 23:42 05/05/24 23:39 05/05/24 23:12 05/05/24 23:00 05/05/24 22:57 05/05/24 22:33 05/05/24 22:20 05/05/24 22:03 05/05/24 21:42 05/05/24 21:33 05/05/24 21:24 05/05/24 21:00 05/05/24 21:00 05/05/24 20:41 05/05/24 20:35 05/05/24 20:30 05/05/24 20:29 05/05/24 20:11 05/05/24 20:02 05/05/24 20:00 05/05/24 19:59 05/05/24 19:53 05/05/24 19:32 05/05/24 19:21 2 Laboratory Results 05/06/24 04:41 05/06/24 04:41 Coding Level of Care Code 87438 SUB INP/OBS CARE MIN Diagnoses Claudication of right lower extremity I73.9 Hypertension I10 Aortoiliac occlusive disease I74.09
[2024-05-06 07:45] VITALS: O2SAT 95
[2024-05-06] MEDS: ASPIRIN 81 MG ECTAB PO SCH (08:19)
[2024-05-06] MEDS: PANTOprazole 40 MG TAB PO SCH (08:19)
[2024-05-06] MEDS: ROSUVASTATIN CALCIUM 10 MG TAB PO SCH (08:19)
[2024-05-06 10:27] VITALS: TEMP 98.1
[2024-05-06 13:19] VITALS: BP 160/80
[2024-05-06 13:24] VITALS: PULSE 83; RESP 20
--- NOTE | 2024-05-06 14:05 | Surgery Progress Note ---
Date of Service May 06, 2024 Assessment & Plan (1) S/P femoral-popliteal bypass surgery: Plan: Doing extremely well Will d/c today Admission and Anticipated Discharge Date Admission Date: May 05, 2024 Subjective Patient without complaint. He is ambulating in the moj[place] without difficulty. He has no foot or leg pain other than incisional pain in the groin. Physical Exam Constitutional: WD/WN, vitals as above Respiratory: normal respiratory effort; no respiratory distress Cardiovascular: Rate/Rhythm: regular rate and regular rhythm Vessels: posterior tibial pulses present and dorsalis pedis pulses present Extremities: normal capillary refill Gastrointestinal (Abdomen): Inspection/Auscultation: abdomen normal to inspection; abdomen not distended Skin: + incision (prevena in place, thigh inci korey dry and clean without swelling) Neurologic: CN's II-XI intact bilaterally and moves all extremities Results & Data Vital Signs (Past 12 Hours) Vital Signs Temp Pulse Pulse Resp BP BP Pulse Ox 05/06/24 13:21 36.7 C 83 20 95 05/06/24 13:18 160/80 H 05/06/24 13:00 71 23 169/93 H 05/06/24 12:03 72 19 05/06/24 11:45 72 26 H 05/06/24 11:00 64 28 H 05/06/24 10:18 66 23 05/06/24 09:12 78 19 05/06/24 08:39 78 161/75 H 05/06/24 08:00 36.7 C 05/06/24 08:00 05/06/24 08:00 80 05/06/24 08:00 05/06/24 08:00 64 05/06/24 07:30 68 20 05/06/24 07:06 71 18 05/06/24 07:05 168/94 H 05/06/24 07:00 165/92 H 95 05/06/24 06:48 64 16 05/06/24 06:33 164/87 H 05/06/24 06:21 64 24 05/06/24 06:00 66 21 05/06/24 05:54 67 23 05/06/24 05:45 78 19 05/06/24 05:21 66 16 05/06/24 05:12 63 17 05/06/24 04:51 63 16 05/06/24 04:45 66 16 05/06/24 04:18 82 23 05/06/24 04:06 78 13 05/06/24 04:05 37 C 05/06/24 03:51 83 21 05/06/24 03:45 81 14 05/06/24 03:30 71 25 H 05/06/24 03:15 79 18 05/06/24 03:09 68 20 05/06/24 03:00 145/77 H 05/06/24 02:54 67 18 05/06/24 02:12 80 19 05/06/24 02:03 68 20 Pulse Ox O2 Del Method O2 Del Method 05/06/24 13:21 05/06/24 13:18 05/06/24 13:00 05/06/24 12:03 05/06/24 11:45 05/06/24 11:00 05/06/24 10:18 05/06/24 09:12 05/06/24 08:39 05/06/24 08:00 05/06/24 08:00 95 Room Air 05/06/24 08:00 05/06/24 08:00 Room Air 05/06/24 08:00 05/06/24 07:30 05/06/24 07:06 05/06/24 07:05 05/06/24 07:00 Room Air 05/06/24 06:48 05/06/24 06:33 05/06/24 06:21 05/06/24 06:00 05/06/24 05:54 05/06/24 05:45 05/06/24 05:21 05/06/24 05:12 05/06/24 04:51 05/06/24 04:45 05/06/24 04:18 05/06/24 04:06 05/06/24 04:05 05/06/24 03:51 05/06/24 03:45 05/06/24 03:30 05/06/24 03:15 05/06/24 03:09 05/06/24 03:00 05/06/24 02:54 05/06/24 02:12 05/06/24 02:03
--- NOTE | 2024-05-06 14:06 | Discharge Summary ---
Date of Service May 06, 2024 Admission HPI Per Admitting Provider Mr Love is a 58-year-old gentleman who in 2021 had an aortobifemoral bypass graft. He does have a known right superficial femoral artery occlusion. He claims his claudication of his right lower extremity has worsened. He is given difficulty going up stairs or hills. This point it is irritating and limiting him enough that He would like something done for the occlusion. On arteriogram, he was found to have a right superficial femoral artery occlusion. He is admitted at this time for a right fem pop bypass. He denies any rest pain. Admission Exam Per Admitting Provider Constitutional: WD/WN, vitals as above Respiratory: normal respiratory effort, lungs clear to auscultation Cardiovascular: RRR, no murmur, no edema Vessels: femoral pulses present, posterior tibial pulses present (absent on right) and dorsalis pedis pulses present (absent on right) Gastrointestinal (Abdomen): normal bowel sounds, soft, nontender, no hepatosplenomegaly Neurologic: CN's II-XI intact bilaterally and moves all extremities Psychiatric: Orientation: alert and oriented x 3 Principal Diagnosis Right superficial femoral artery occlusion Discharge Exam Constitutional WD/WN, vitals as above Respiratory normal respiratory effort, lungs clear to auscultation normal respiratory effort; no respiratory distress Cardiovascular RRR, no murmur, no edema Rate/Rhythm: regular rate and regular rhythm Vessels: femoral pulses present, posterior tibial pulses present and dorsalis pedis pulses present Extremities: normal capillary refill Gastrointestinal (Abdomen) normal bowel sounds, soft, nontender, no hepatosplenomegaly Inspection/Auscultation: abdomen normal to inspection; abdomen not distended Skin + incision (prevena in place, thigh incision dry and clean without swelling) Neurologic CN's II-XI intact bilaterally and moves all extremities Psychiatric Orientation: alert and oriented x 3 Discharge Data Allergies Allergy/AdvReac Type Severity Reaction Status Date / Time levofloxacin Allergy Severe Throat Verified 05/05/24 08:45 swelling blueberry Allergy Unknown Throat Verified 05/05/24 08:45 swelling, hives Consultations 05/05/24 14:11 Consult Welding Machine Operator Helper Gas Routine Procedures Performed Operation Date: 05/05/24 10:15 Actual Procedures p Right Femoral to Popliteal Prosthetic Bypass(Right) - Kojo Clarke MD Hospital Course (1) S/P femoral-popliteal bypass surgery: Doing extremely well Will d/c today Total Time Total Time Spent Total Time Spent (In Minutes): 0 Discharge Plan Discharge Items Patient Disposition: Home - Self-Care Reason For Visit: Right Superficial Femoral Artery Occlusion Discharge Diagnosis: Right superficial femoral artery occlusion Activity: Per Instructions section Non-emergency contact: Surgeon Call non-emergency contact if: your temperature is above 101.5, your wound has increased redness, your wound has increased drainage and your wound pain has increased Follow-up/Referrals: Maylin Simpson PA-C [Primary Care Provider] - Diet: Heart Healthy Addtl Attending Provider Instructions: ACTIVITY RECOMMENDATIONS: may remove groin dressing once suction is lost. SPECIAL CARE INSTRUCTIONS: Call your doctor if: * Temperature above 101 degrees * Pain not relieved by pain medicine ordered * There is increased drainage or redness from any incision * You have any unanswered questions or concerns. Call [phone] to schedule a follow up appointment if one not already scheduled. Pending Studies at Discharge: No Stand-Alone Forms: [facility] [employer], Smoking Cessation Medications and DC Order Prescriptions: Continued aspirin 81 mg Capsule 81 mg PO QAM Tums 300 mg (750 mg) Tablet,Chewable 300 mg PO TID PRN (Reason: gerd) rosuvastatin 10 mg Tablet 10 mg PO QAM omeprazole 20 mg Capsule,Delayed Release(Dr/Ec) 20 mg PO QAM losartan 50 mg Tablet 50 mg PO QAM famotidine 40 mg Tablet 40 mg PO QAM metoprolol succinate 50 mg tablet extended release 24 hr 50 mg PO QAM oxycodone-acetaminophen [Percocet] 5-325 mg tablet 1 tab PO Q4H PRN (Reason: pain) Qty: 30 0RF Discharge Orders: Discharge Order (Routine); Ordered 05/06/24 Ordered By: Kojo Clarke Admission Data Admit Date/Time: 05/05/24 10:14 Attending Provider: Kojo Clarke Admit Provider: Kojo Clarke Primary Care Provider: Maylin Simpson Other Providers: Cordell Santiago; Francisco Gerber; Wesley Ngo; Ky Sow; Elkin Alcala; Janeth Gastelum; Pablo Day; Vannessa Ty; Denise Rutherford; Clinton Patiño; Hasmukh Choi; Aviva Jeffery Other Interventions: Discharge Summary Assessment (RN) Last Done: 05/06/24 13:21
--- NOTE | 2024-05-08 09:23 | Operative Report ---
Post Operative Report Pre & Post Diagnosis Operation Date: 05/05/24 10:15 Pre-Op Diagnosis: Claudication of right lower extremity Post-Op Diagnosis: Claudication of right lower extremity I identified the patient and participated in the time-out.: Yes Procedure Operation Date: 05/05/24 10:15 Actual Procedures p Right Femoral to Popliteal Prosthetic Bypass(Right) - Kojo Clarke MD Surgeon Kojo Clarke MD Road Crossing Guard none Estimated Blood Loss 150 Findings Consistent with Post-Op Diagnosis Specimens none Anesthesia Type General Complications none Disposition Accompanied Patient To Recovery: No Disposition: Recovery Room Indications This is a 58-year-old gentleman with severe claudication of his right lower extremity. Intervention via endovascular approach cannot be accomplished. Bypass was recommended. It was decided to a prosthetic being that the distal runoff would be a [id number]. I have discussed the risks options and benefits of the procedure with the patient. The patient understands the risks options and benefits and agrees to the procedure. Description of Procedure The patient was taken the op room and placed spine position. After general anesthesia was accomplished the right lower extremities prepped draped in sterile manner. We decided to do a incision slightly lower than the previous groin incision from his aortobifemoral bypass being that there were chronic subcutaneous or old infected cyst in the skin. His proximal superficial femoral artery was patent for the first 15 cm and was fairly good on arteriogram. The incision was carried down to the superficial femoral arteries identified. We then made incision in the medial lower thigh. This was deepened into the popliteal fossa. The proximal popliteal artery above the knee was identified. It was good caliber and soft. A tunnel was then made subsartorial he from the lower knee upper incision and a 6 mm ringed propatent graft passed. Patient was heparinized at that time. The proximal superficial femoral arteries then clamped proximal distally. Longitudinal arteriotomy was performed. Widely patent superficial femoral artery was noted. The graft was then beveled the appropriate fashion and end to side anastomosis accomplished using a 5-0 Prolene suture in usual vascular fashion. After this anastomosis was completed the artery was flushed through the graft. The proximal popliteal artery was then clamped proximal distally. A longitudinal arteriotomy was performed. The distal runoff appeared to be widely patent. The graft was then trimmed and beveled the appropriate length and an end to side anastomosis accomplished between the graft and the proximal popliteal artery using a running 5-0 Prolene suture in the usual vascular fashion. Prior to completing the closure backbleeding forward bleeding was allowed to occur. The final few sutures were then placed and securely tied. Clamps were removed. Excellent flow was noted through the graft. Palpable pulses were felt in the foot. Added hemostasis was then obtained of the incisions. After attic hemostasis was noted of the anastomoses then both wounds the wounds were closed in usual fashion using running 3-0 Vicryl suture for subcutaneous layer and woody for the skin. Sterile dressings were applied to the thigh wound and a Prevena dressing was applied to the groin wound.The patient left the operation room in satisfactory condition and tolerated the procedure well. All needle and sponge counts were correct at the end of the procedure. I attest to the content of the Intraoperative Record and any orders documented therein. Any exceptions are noted below.
== END 2024-05-06 13:42 | disposition home or self-care (01) | DRG 254 ==
LOC: ASU 08:17 → 1E 10:14